=== PATIENT | female | born 1970 | race Caucasian/White ===

== ENCOUNTER → 2018-07-07 12:38 | Outpatient (CLI) | payer OTHER, SELFPAY ==
[2018-07-07 13:44] LABS: Cholesterol 209 mg/dL (140-199); Glucose 90 mg/dL (70-100); HDL Cholesterol 59 mg/dL (40-60); LDL Cholesterol Calculated 135 mg/dL (<100); Triglycerides 77 mg/dL (35-150)
== END ==
PROVIDERS: PCP Family Medicine; Visit Provider Family Medicine
DX: Z13.1 Encounter for screening for diabetes mellitus (principal); Z13.220 Encounter for screening for lipoid disorders
CPT/HCPCS: 36415; 80061; 82947

== ENCOUNTER → 2018-07-09 13:10 | Outpatient (CLI) | payer OTHER, SELFPAY ==
--- NOTE | 2018-07-09 | DI.MG.S_ITS ---
BILATERAL DIGITAL SCREENING MAMMOGRAM 3D/2D WITH CAD WITH AUGMENTATION: 07/09/2018 CLINICAL: Routine screening. Comparison is made to exams dated: 05/26/2016 mammogram and 08/20/2015 mammogram - [facility]. The tissue of both breasts is heterogeneously dense. This may lower the sensitivity of mammography. Current study was also evaluated with a Computer Aided Detection (CAD) system. There is an oval equal density asymmetry in the left breast posterior depth central to the nipple seen on the mediolateral oblique view only. No other significant masses, calcifications, or other findings are seen in either breast. IMPRESSION: INCOMPLETE: NEEDS ADDITIONAL IMAGING EVALUATION The oval equal density asymmetry in the left breast is indeterminate. Additional views with possible ultrasound are recommended. This exam was interpreted at Station ID: [id number]. NOTE: For mammograms, a report in lay terms will be sent to the patient. Approximately 15% of breast malignancies will not be visualized mammographically. In the management of a palpable breast mass, a negative mammogram must not discourage biopsy of a clinically suspicious lesion. Electronically Signed By: Berto Whitney M.D. at/:07/09/2018 17:55:18 letter sent: Additional Imaging Needed ACR BI-RADS Category 0: Incomplete 3340F
== END ==
PROVIDERS: PCP Family Medicine; Visit Provider Family Medicine
DX: Z12.31 Encounter for screening mammogram for malignant neoplasm of breast (principal)
CPT/HCPCS: 77063; 77067

== ENCOUNTER → 2018-07-18 13:17 | Outpatient (CLI) | payer OTHER, SELFPAY ==
--- NOTE | 2018-07-18 13:20 | DI.US.S_ITS ---
LIMITED ULTRASOUND OF LEFT BREAST: 07/18/2018 CLINICAL: 1. Left nipple discharge x 1 day. 2. Palpable lump 6:00 2cm fn. 3. Oval asymmetry on mammography. Comparison is made to exams dated: 07/18/2018 mammogram, 07/09/2018 mammogram, 05/26/2016 ultrasound, and 05/26/2016 mammogram - [facility]. Real-time and Doppler ultrasound of the left breast four quadrants and retroareolar regions were performed. Zarate scale images of the real-time examination were reviewed. No underlying breast mass or abnormality is identified. There is no ultrasound correlate for the previously noted oval equal density asymmetry in the left breast posterior depth central to the nipple seen on the mediolateral oblique view only on comparison screening mammograms. Targeted ultrasound of the left nipple and retroareolar region demonstrates no focal mass. There is no focal duct dilitation. There is mild diffuse retroareolar ductal ectasia. Targeted ultrasound was performed in the region of the patient's reported focal palpable abnormality in the left breast at 6 o'clock position 2 cm from the nipple. No underlying breast mass or abnormality is identified. IMPRESSION: PROBABLY BENIGN 1) No ultrasound correlate for the oval equal density asymmetry in the left breast posterior depth central to the nipple seen on the mediolateral oblique view only seen on screening and diagnostic mammography. A follow-up mammogram in 6 months is recommended to demonstrate stability. The patient is advised to monitor her breasts and to return sooner for re-evaluation should she feel anything grow or change. 2) Mild diffuse retroareolar ductal ectasia, but with no focal sonographic abnormality of the left nipple/retroareolar region to explain patient's reported nipple discharge. Recommend clinical follow-up with the patient's referring provider for further evaluation and management. A breast MRI can be considered if there is continued clinical concern. 3) No ultrasound findings to explain patient's reported focal palpable abnormality in the left breast at 6 o'clock position 2 cm from the nipple. Recommend clinical follow-up for further evaluation and management of the patient's reported symptoms. This exam was interpreted at Station ID: [id number]. Electronically Signed By: Juan Ramon Arshad M.D. ecl/:07/18/2018 17:56:51 letter sent: Followup Recommended Ultrasound BI-RADS: 3 Probably benign
--- NOTE | 2018-07-18 13:20 | DI.US.S_ITS ---
PROCEDURE: US ABDOMEN LIMITED INDICATIONS: BILATERAL GROIN LUMPS TECHNIQUE: Real-time focused scanning was performed of the inguinal region, with image documentation. COMPARISON: None. FINDINGS: Ultrasound examination of bilateral inguinal region shows multiple bilateral prominent inguinal lymph nodes and measures up to 4.2 x 0.4 x 0.8 cm in size in right inguinal region. No solid mass or fluid collection is seen. No evidence of inguinal hernia. IMPRESSION: Mildly prominent bilateral inguinal lymph nodes as described above. No evidence of inguinal hernia. No solid mass or fluid collection. Dictated by: Aldo Magana M.D. on 07/18/2018 at 15:47 Approved by: Aldo Magana M.D. on 07/18/2018 at 15:49
--- NOTE | 2018-07-18 13:20 | DI.MG.S_ITS ---
UNILATERAL LEFT DIGITAL DIAGNOSTIC MAMMOGRAM 3D/2D WITH ADDITIONAL VIEWS: 07/18/2018 CLINICAL: Additional evaluation requested from prior study. Patient also reports a palpable abnormality in her left breast as well as left nipple discharge. Comparison is made to exams dated: 07/09/2018 mammogram, 05/26/2016 mammogram, and 08/20/2015 mammogram - [facility]. The tissue of left breast is heterogeneously dense. This may lower the sensitivity of mammography. Previously identified oval equal density asymmetry in the left breast posterior depth central to the nipple seen on the mediolateral oblique view only on comparison screening mammograms persists with additional views. There is a triangular marker overlying the skin of the left breast at the site of the patient's reported palpable abnormality. There is no underlying mammographic abnormality. There is no retroareolar mass or abnormality. Imaged portions of the bilateral breast implants appear intact. IMPRESSION: INCOMPLETE: NEEDS ADDITIONAL IMAGING EVALUATION 1) Previously identified oval equal density asymmetry in the left breast posterior depth central to the nipple seen on the mediolateral oblique view only on comparison screening mammograms persists with additional views. A targeted ultrasound is recommended for further evaluation, and will be performed immediately following this exam. 2) No mammographic abnormality to correlate with the site of the patient's reported focal palpable abnormality in the left breast. Targeted diagnostic ultrasound recommended for further evaluation, which will be performed immediately following this exam. 3) No mammographic abnormality to correlate with patient's reported nipple discharge. Targeted diagnostic retroareolar ultrasound recommended for further evaluation, which will be performed immediately following this exam. This exam was interpreted at Station ID: [id number]. NOTE: For mammograms, a report in lay terms will be sent to the patient. Approximately 15% of breast malignancies will not be visualized mammographically. In the management of a palpable breast mass, a negative mammogram must not discourage biopsy of a clinically suspicious lesion. Electronically Signed By: Juan Ramon Arshad M.D. ecl/:07/18/2018 17:45:30 letter sent: Additional Imaging Needed ACR BI-RADS Category 0: Incomplete 3340F
== END ==
PROVIDERS: PCP Family Medicine; Visit Provider Family Medicine
DX: R92.8 Other abnormal and inconclusive findings on diagnostic imaging of breast (principal); R59.0 Localized enlarged lymph nodes; N63.20 Unspecified lump in the left breast, unspecified quadrant; N64.89 Other specified disorders of breast; N64.52 Nipple discharge; N60.42 Mammary duct ectasia of left breast
CPT/HCPCS: 76642; 76705; 77065; G0279

== ENCOUNTER → 2018-07-21 12:15 | Outpatient (CLI) | payer OTHER, SELFPAY ==
[2018-07-21 13:08] LABS: Add Manual Diff / Slide Review NO; Basophils Absolute Auto 100 /uL (0-100); Basophils Percent Auto 1.1 % (0-2); Eosinophils Absolute Auto 100 /uL (0-450); Eosinophils Percent Auto 1.5 % (2-4); Hematocrit 42.2 % (36-46); Hemoglobin 14.2 g/dL (12.0-16.0); Lymphocytes Absolute Auto 2200 /uL (1100-4500); Lymphocytes Percent Auto 31.2 % (25-40); Mean Corpuscular HGB Conc 33.5 % (30-36); Mean Corpuscular Hemoglobin 29.9 PG (26-34); Mean Corpuscular Volume 89.3 fL (80-100); Monocytes Absolute Auto 600 /uL (0-900); Monocytes Percent Auto 8.1 % (3-14); Neutrophils Absolute Auto 4000 /uL (1500-7000); Neutrophils Percent Auto 58.1 % (50-75); Platelet Count 308 X10^3/uL (150-400); Red Blood Cell Count 4.73 X10^6/uL (4.0-5.2); Red Cell Distribution Width 12.9 % (11.6-14.8); White Blood Cell Count 6.9 X10^3/uL (4.5-11.0)
[2018-07-21 13:35] LABS: Alanine Aminotransferase 37 IU/L (9-52); Albumin 4.3 g/dL (3.5-5.0); Albumin Globulin Ratio 1.5 (1.0-2.8); Alkaline Phosphatase 47 U/L (38-126); Aspartate Aminotransferase 23 IU/L (14-36); BUN Creatinine Ratio 23.3 (6-22); Bilirubin Total 0.4 mg/dL (0.2-1.3); Blood Urea Nitrogen 14 mg/dL (7-17); C-Reactive Protein Quant 0.7 mg/dL (<1.0); Calcium 9.4 mg/dL (8.4-10.2); Carbon Dioxide 26 mmol/L (22-32); Chloride 100 mmol/L (98-107); Erythrocyte Sedimentation Rate 9 MM/HR (0-20); Estimated Glomerular Filt Rate > 60.0 mL/min (>60); Globulin 2.9 g/dL (1.7-4.1); Glucose 87 mg/dL (70-100); HEMOLYSIS < 15 (0-50); Potassium 4.5 mmol/L (3.4-5.1); Sodium 137 mmol/L (137-145); Total Protein 7.2 g/dL (6.3-8.2)
== END ==
PROVIDERS: PCP Family Medicine; Visit Provider Family Medicine
DX: R59.9 Enlarged lymph nodes, unspecified (principal)
CPT/HCPCS: 36415; 80053; 85025; 85651; 86140

== ENCOUNTER → 2018-08-15 07:23 | Outpatient (CLI) | payer OTHER, SELFPAY ==
--- NOTE | 2018-08-15 07:23 | DI.US.S_ITS ---
PROCEDURE: US ABDOMEN LIMITED INDICATIONS: FOLLOW-UP ENLARGED BILATERAL INGUINAL LYMPH NODES TECHNIQUE: Real-time focused scanning was performed of the bilateral inguinal regions, with image documentation. COMPARISON: [facility], US, US ABDOMEN LIMITED, 07/18/2018, 14:21. FINDINGS: Left inguinal region: There is a 1.9 x 0.7 x 0.4 cm left inguinal lymph node with a mildly lobulated cortex. The lymph node demonstrates a preserved fatty hilum with cortical thickness of 3 mm, within normal limits. There is mild expected hilar vascularity on Doppler ultrasound. This was not identified on prior comparison exam. There is a 1.7 x 1.0 x 0.5 cm left inguinal lymph node which demonstrates a preserved fatty hilum with cortical thickness of 3 mm, within normal limits. There is mild expected hilar vascularity on Doppler ultrasound. This previously measured 1.8 x 0.6 x 0.4 cm on comparison exam of 07/18/18. Right inguinal region: There is a 3.8 x 0.8 x 0.7 cm right inguinal node which demonstrates a preserved fatty hilum with cortical thickness of 3 mm, within normal limits. There is mild expected hilar vascularity on Doppler ultrasound. This previously measured 4.2 x 0.8 x 0.4 cm on 07/18/18. There is a 0.9 x 0.8 x 0.5 cm right inguinal lymph node which demonstrates a preserved fatty hilum with cortical thickness of 2 mm, within normal limits. There is mild expected hilar vascularity on Doppler ultrasound. This previously measured 0.9 x 0.6 x 0.6 cm on comparison exam of 07/18/18. 0.7 x 0.5 x 0.3 cm right inguinal lymph node which demonstrates a preserved fatty hilum with cortical thickness of 3 mm, within normal limits. There is mild expected hilar vascularity on Doppler ultrasound. No clear convincing correlate is identified on comparison exam. IMPRESSION: Bilateral inguinal lymph nodes as described above. No clear convincing abnormal lymph node warranting biopsy by imaging criteria is identified at this time. Recommend clinical followup for further evaluation and management. Consider followup ultrasound in 6 months to demonstrate stability if there is continued clinical concern. Dictated by: Juan Ramon Arshad M.D. on 08/15/2018 at 8:51 Approved by: Juan Ramon Arshad M.D. on 08/15/2018 at 9:13
== END ==
PROVIDERS: PCP Family Medicine; Visit Provider Family Medicine
DX: R59.0 Localized enlarged lymph nodes (principal)
CPT/HCPCS: 76705

== ENCOUNTER → 2018-08-30 13:26 | Outpatient (CLI) | payer OTHER, SELFPAY ==
--- NOTE | 2018-08-30 13:28 | DI.CT.S_ITS ---
PROCEDURE: CT ABDOMEN PELVIS W CON INDICATIONS: enlarged inguinal lymph nodes TECHNIQUE: After the administration of oral and intravenous contrast, 5 mm thick sections acquired from the diaphragms to the symphysis. 5 mm thick coronal and sagittal reformats were performed. For radiation dose reduction, the following was used: automated exposure control, adjustment of mA and/or kV according to patient size. COMPARISON: [facility], US, US ABDOMEN LIMITED, 07/18/2018, 14:21. [facility], US, US ABDOMEN LIMITED, 08/15/2018, 7:30. [facility], CT, ABDOMEN/PELVIS WITH CONTRAST, 07/06/2017, 10:03. FINDINGS: Image quality: Excellent. ABDOMEN: Lung bases: Lung bases are clear. Heart size is normal. Partially imaged breast implants are intact. The small hiatal hernia, chronic. Interval resolution of bilateral pleural effusions. Solid organs: Liver is normal in size and enhancement. Gallbladder is surgically absent. Interval resolution of perihepatic fluid. Biliary system is non-dilated. Pancreas enhances normally. Spleen is normal in size and enhancement. No adrenal nodules. Kidneys are normal in size and enhancement, without hydronephrosis. Peritoneum and bowel: Stomach, small bowel, and colon loops are normal in caliber and wall thickness. Mild diverticulosis of the sigmoid colon. Normal quantity of stool throughout the rest of the colon. Normal appendix. No free fluid or air. Interval resolution of prior pelvic fluid. Nodes and vessels: No retroperitoneal or mesenteric adenopathy. Aorta and inferior vena cava are normal in caliber. Miscellaneous: No ventral hernias. PELVIS: Genitourinary: Thickening of the anterior urinary bladder wall, similar compared to the prior study, potentially physiologic. Miscellaneous: No suspicious intrapelvic adenopathy. Bilateral fat containing femoral hernia sac present. A mildly prominent lymph node is present at the orifice of the right femoral hernia, unchanged in size compared to the prior study. A fatty hilum is visible. Bones: No suspicious bony lesions. No vertebral body compression fractures. IMPRESSION: 1. No pathologic adenopathy. 2. Bilateral, fat containing femoral hernias. 3. Benign appearing lymph node immediately adjacent to the right femoral hernia. 4. Interval resolution of prior postcholecystectomy sequela. 5. Mild sigmoid diverticulosis without acute diverticulitis. Dictated by: Sunni Mckoy M.D. on 08/30/2018 at 16:46 Approved by: Sunni Mckoy M.D. on 08/30/2018 at 16:55
== END ==
PROVIDERS: PCP Family Medicine; Visit Provider Family Medicine
DX: R59.0 Localized enlarged lymph nodes (principal); K41.20 Bilateral femoral hernia, without obstruction or gangrene, not specified as recurrent; K57.30 Diverticulosis of large intestine without perforation or abscess without bleeding; K44.9 Diaphragmatic hernia without obstruction or gangrene; Z90.49 Acquired absence of other specified parts of digestive tract
CPT/HCPCS: 74177; Q9967

== ENCOUNTER 2018-09-27 14:24 | Day surgery (SDC) | payer OTHER, SELFPAY ==
[2018-09-21 12:23] VITALS: BMI 31.7
[2018-09-27] VITALS (13 sets, daily range): BP systolic 91–127; BP diastolic 58–88; PULSE 71–100; RESP 10–18; TEMP 36.3–36.9; O2SAT 93–98; BMI 30.5
[2018-09-27] MEDS: LACTATED RINGERS 1,000 ML 100 ML IV ×2 (16:05→18:19)
--- NOTE | 2018-09-27 18:12 | PM.PREOP ---
Pre-operative Note Interval Note History & Physical reviewed/Exam performed by Physician: Yes Changes to H&P: No
[2018-09-27] MEDS: CEFAZOLIN 2 GM/100 ML FROZ.PIGGY IV (18:20)
--- NOTE | 2018-09-27 18:48 | SUR.OPER ---
Supine on padded OR bed, head on pillow, arms secured on padded arm boards at <90 degrees abduction, legs uncrossed,pillow x1 under knees per patient request, safety belt at thigh.
[2018-09-27] MEDS: BUPIVACAINE 0.5% (PF) VIAL 30 ML INJ (18:57)
--- NOTE | 2018-09-27 20:48 | PM.OP.1 ---
Operative Date/Time/Diagnoses Date of procedure: 09/27/18 Time of procedure: 20:49 Pre-op diagnosis: Bilateral femoral hernias based on CT scanning Post-op diagnosis: same (Left side contained a large amount of fat. Right-side principally lymph nodes which were not removed.) Procedure & Clinicians Procedure: Bilateral Serg repair of femoral hernias Same procedure as scheduled: Yes Indications: Symptomatic femoral hernias Surgeon: Stephon Oliveira Biomedical Equipment Technician: Marcy Molina Anesthesia Type: General Operative Notes Findings: See postop Closure Type: primary Specimen(s): none sent Prosthetic devices, grafts, tissues, transplants, or devices: None Estimated Blood Loss (mL): 15 Procedure in detail: Patient is placed supine on the operating room table and underwent general LMA anesthesia. She was prepped and draped in the usual fashion. Local anesthetic was infiltrated and a curvilinear incision made over the internal ring on the right side. It was carried down the level the external oblique. The external oblique was opened parallel to its fibers through the external ring which was quite small. Ileal inguinal nerve was not encountered on the right side. Blunt dissection was used to lift the external oblique medially and laterally to expose the ilioinguinal ligament and the posterior lamella of the rectus. The floor and had a small bulge within it and contained preperitoneal fat I opened this area and removed a well-defined piece of preperitoneal fat. The preperitoneal fat at the level of Tj's ligament was dissected proximally with blunt dissection and expose the femoral canal. In so doing I would have reduced any fat contained in the hernia. There were lymph nodes adjacent to the femoral vein and I suspect these may well have been what was seen at least in part on CT. Sutures were placed between the transversalis arch and the Tj's ligament using interrupted 0 Ethibond sutures. These were placed until a reach the femoral canal where a transition stitch was made and then sutures were placed between the transversalis arch in the ileopubic tract and edge of inguinal ligament. The internal ring was completely closed with this maneuver. A relaxing incision was made in the posterior lamella the anterior rectus sheath. Sutures were then tied down. The repair appeared to be intact. The external oblique was closed with a running 3 0 Vicryl. The subcu was closed with interrupted 3 0 Vicryl and skin was closed running 4 0 Vicryl subcuticular stitch and Steri-Strips. Attention was turned to the left side. A mirror incision was made after infiltrating local anesthetic. An identical operation was performed with the following exception. There were no lymph nodes seen on the left side but there was a large piece of fat in a femoral hernia. This fat was reduced and a portion of this was removed in order to reduce it. The ilioinguinal nerve was seen on the left side and carefully preserved. The deep epigastric vessels were also encountered and carefully preserved. Otherwise an identical operation was performed. Closure was in an identical fashion as well. The wounds were cleaned masses on Steri-Strips were applied and a dressing applied. Patient was awakened extubated and taken to recovery area in good condition. There were no apparent complications. Local anesthetic was infiltrated in both sides after closure of the left side. Complications: none Condition: stable Disposition: PACU Plan for aftercare: Due to the late hour and her prior problems with anesthesia she will be kept overnight in an out patient with bed status.
[2018-09-27] MEDS: MORPHINE 10 MG/ML INJ 2 MG IV ×2 (20:50→21:10)
[2018-09-27] MEDS: fentaNYL 100 MCG/2 ML INJ 50 MCG IV (20:55)
[2018-09-27] MEDS: KETOROLAC 30 MG/ML VIAL IV (22:46)
[2018-09-27] MEDS: GABAPENTIN 300 MG CAPSULE PO (22:47)
--- NOTE | 2018-09-27 23:35 | PC.NURSE ---
admit note: pt A&OX3. 96% 1L. no n/v. pain 10/22, administered toradol and gabapentin. 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 lap sites CDI. no shadow drainage. call light in reach. bed alarm active.
[2018-09-27] MEDS: DOCUSATE 100 MG CAPSULE PO (23:59)
[2018-09-28] MEDS: MORPHINE 2 MG/ML INJ IV ×2 (00:06→04:18)
[2018-09-28 04:00] VITALS: BP 99/76; PULSE 77; RESP 18; TEMP 36.6; O2SAT 95
[2018-09-28 07:52] VITALS: BP 104/64; PULSE 67; RESP 18; TEMP 36.3; O2SAT 97
[2018-09-28] MEDS: GABAPENTIN 300 MG CAPSULE PO (08:21)
--- NOTE | 2018-09-28 09:31 | PC.NURSE ---
Pt is A&ox3, she states that she is comfortable at this time. Dressings to lower groin/femoral area cdi. dr. pope here and has discharged patient.
--- NOTE | 2018-09-28 09:42 | PM.DS.1 ---
History of Present Illness Date Patient Seen: 09/28/18 Time Patient Seen: 09:43 Chief complaint: [id number] Narrative: Patient is a woman brought in For repair bilateral femoral hernias Discharge Providers Discharge Date: 09/28/18 Primary care physician: Luh Leigh MD Consults: 09/27/18 21:40 Consult to Discharge Planning Routine Comment: Discharge provider: Stephon Oliveira MD Summary Discharge Diagnosis: Bilateral femoral hernias Hospital Course: The patient underwent operation. Because of the late hour she was brought in and is an outpatient with bed status. She was seen prior to discharge. She has tolerated diet. Her pain is well controlled. She has numbness at the incisions. She is quite comfortable. Her dressings are dry and intact. Status at Discharge Cognitive/behavioral status at discharge: oriented Functional status at discharge: independent ambulation Overall status at discharge: patient is not back to baseline (Has pain when up and walking) Exam Vital Signs (past 8 hours): - 09/28/18 04:00 09/28/18 07:52 Temperature 97.9 F 97.3 F L Pulse Rate 77 67 Respiratory Rate 18 18 Blood Pressure 99/76 104/64 Pulse Oximetry 95 97 Oxygen Delivery Method Room Air Oxygen Flow Rate 2 Discharge Plan Discharge Med Rec/Prescriptions Prescriptions: No Action valacyclovir 500 mg tablet 500 mg PO PRN PRN (Reason: Cold Sores) RF: 0 Visit Report/Discharge Packet Instructions: DI for Hernia Repair, [facility]: Wound Care Discharge Data Primary Care Provider: Luh Leigh Attending Provider: Stephon Oliveira Quality VTE Deep Vein Thrombosis/Pulmonary Embolism Present on Admission: No
--- NOTE | 2018-09-28 12:01 | CM.DANOTE ---
Discharge Planning/Care Management DCP: assessment: case received and discussed in Team Rounds 0930 to 1015. Documentation reveals that pt is a 47 year old female who admitted yesterday for a scheduled repair of bilateral femoral hernias. Payer: [facility]. Dr. Oliveira did see pt early this morning and ok'd her for d/c. She left at about 0945. No concerns re the dc plan were identified by the care team members. CM Discharge Assessment Start: 09/28/18 12:00 Freq: Status: Active Protocol: Document 09/28/18 12:00 ITV (Rec: 09/28/18 12:01 ITV [id number]) Discharge Planning Assessment Advance Directives? 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 No Does patient have DE PAZ/SOB No Hx Sleep Apnea No Currently Taking a Beta Coreen No Hx Chest Pain Yes: Atypical 12/2016 Hx SOB No Hx Syncope or Dizziness No Anti-Coagulant Therapy No Has a Correctional Facility Psychiatrist No Cardiac Testing No Hx Pacemaker/ICD No Pacemaker Rep Required? No Cardiac Clearance Received Not Applicable dysphagia No Urinary Catheter Present No Hx Urinary Self Catheterization No Diabetes No Patient No Lactating No Comment LMP 08/26/18 Marital Status Lives With spouse family Patient Discharge Plan Description Return Home
== END 2018-09-28 11:15 | disposition home or self-care (01) ==
LOC: OR 14:25 → AC 21:31
PROVIDERS: PCP Hospitalist; Visit Provider Specialist
PROC: (CPT 49550; principal; 2018-09-27 15:15)
DX: K41.20 Bilateral femoral hernia, without obstruction or gangrene, not specified as recurrent (principal); F17.210 Nicotine dependence, cigarettes, uncomplicated
CPT/HCPCS: 49550; J0690; J1100; J1885; J2250; J2270; J2405; J2704; J3010

== ENCOUNTER 2019-01-31 01:35 | Emergency (ER) | payer OTHER, SELFPAY ==
[2018-09-27 21:57] VITALS: BMI 30.5
[2019-01-31 01:44] VITALS: BP 117/73; PULSE 80; RESP 18; TEMP 36.2; O2SAT 98; BMI 31.7
--- NOTE | 2019-01-31 01:58 | ED.ABDPAIN ---
HPI - Abdominal Pain General Chief Complaint: Abdominal Pain Stated Complaint: abdominal pain Time Seen by Provider: 01/31/19 01:46 Source: patient Mode of arrival: ambulatory Limitations: no limitations History of Present Illness HPI narrative: Patient is a 48-year-old female who presents with right upper quadrant pain and near-syncope. She says she woke suddenly with some right upper quadrant pain she stood up she felt like she might pass out she got extremely diaphoretic she was able to lower herself to the ground and crawled to her son's room at which 0.9 normal was called. The EMS arrived checked her out she was doing better but sent her to the ER POV for further evaluation. She no longer has right upper quadrant pain and back she has had a cholecystectomy. She no longer feels like she is going to pass out she denies any chest pain heart palpitations shortness of breath nausea or vomiting. MD complaint: abdominal pain Onset (ago): minute(s) Pain Consistency: now resolved Location: RUQ Quality: stabbing Radiation: none Related Data Home Medications Medication Instructions Recorded Confirmed valacyclovir 500 mg PO PRN PRN 09/27/18 01/25/19 Previous Rx's Medication Instructions Recorded ibuprofen 600 mg PO TID PRN #20 tab 09/28/18 morphine 10 mg PO Q4-6H PRN #200 ml 09/28/18 gabapentin 300 mg capsule 300 mg PO BID #60 cap 11/22/18 gentamicin 0.3 % eye drops 2 drop EAR-RIGHT Q8H #5 ml 01/25/19 Allergies Allergy/AdvReac Type Severity Reaction Status Date / Time No Known Drug Allergies Allergy Verified 01/25/19 16:15 Review of Systems Review of Systems ROS Unobtainable: All systems reviewed & are unremarkable except as noted in HPI and below Constitutional Constitutional: Denies chills, Denies fever(s), Denies lethargy and Denies weakness Eyes Eyes: Denies change in vision, Denies eye discharge, Denies irritation and Denies loss of vision ENT Ears, Nose, Mouth, and Throat: Denies change in voice, Denies neck pain and Denies sore throat Cardiovascular Cardiovascular: Denies chest pain, Reports diaphoresis, Denies rapid heart rate, Denies pedal edema, Reports lightheadedness, Denies dyspnea and Denies dyspnea on exertion Respiratory Respiratory: Denies cough, Denies dyspnea, Denies dyspnea on exertion and Denies wheezing Gastrointestinal Gastrointestinal: Reports as per HPI Genitourinary Genitourinary: Denies hematuria, Denies flank pain, Denies urinary incontinence and Denies urinary urgency Musculoskeletal Musculoskeletal: Denies neck pain Integumentary/Breasts Skin/Breast: Denies pruritus, Denies erythema, Denies rash and Denies wounds Neurologic Neurologic: Denies loss of vision and Denies weakness Allergic/Immunologic Allergic/Immunologic: Denies wheezing [facility] Medical History Atypical chest pain (Acute ~12/2016) Depression (Acute) Diverticula of intestine (Acute) Elevated liver enzymes (Acute) Herpes (Chronic) Hypercholesterolemia (Acute) Murmur (Acute) Surgical History History of cholecystectomy (Resolved 07/04/17) History of third molar tooth extraction Status post endoscopy Social History marital status: household members: spouse and family occupational status: employed Smoking Status: Current some day smoker alcohol intake: current substance use type: does not use Social History marital status: household members: spouse and family occupational status: employed Smoking Status: Current some day smoker alcohol intake: current substance use type: does not use Exam Initial Vital Signs Initial Vital Signs: Vital Signs Temperature 97.2 F L 01/31/19 01:44 Pulse Rate 80 01/31/19 01:44 Respiratory Rate 18 01/31/19 01:44 Blood Pressure 117/73 01/31/19 01:44 Pulse Oximetry 98 01/31/19 01:44 GENERAL: Well-appearing, well-nourished and in no acute distress. HEENT: Head atraumatic,EOMI, pupils reactive, face symmetric CARDIOVASCULAR: Regular rate and rhythm without murmurs, rubs or gallops. RESPIRATORY: Breath sounds equal bilaterally, no wheezes rales or rhonchi. ABDOMEN: Soft, nontender. Normoactive bowel sounds all 4 quadrants. No guarding or rebound. No right upper quadrant pain negative Lane sign EXTREMITIES: Normal range of motion, no clubbing or edema. Neurovascularly intact NEUROLOGICAL: Alert and oriented x4.Normal gait and speech. Cranial nerves II through XII grossly intact. SKIN: Warm, dry, no laceration, no petechiae, no rashes or lesions. Course Orders Ordered: ED Orders 01/31/19 01:40 Complete Blood Count AUTO DIFF Stat Comprehensive Metabolic Panel Stat Lipase Stat 01/31/19 01:57 EKG-12 Lead Stat Discontinued Medications Sodium Chloride (Normal Saline 0.9%) 1,000 mls @ 1,000 mls/hr IV CONT CHRISTO Vital Signs Vital signs: Vital Signs - 8 hr 01/31/19 01:44 Temperature 97.2 F L Pulse Rate 80 Respiratory Rate 18 Blood Pressure 117/73 Pulse Oximetry 98 MDM - Abdominal Pain Lab Data Attestation: I reviewed the patient's lab results. Result diagrams: 01/31/19 01:40 01/31/19 01:40 Labs: Lab Results 01/31/19 01/31/19 Range/Units 01:40 01:40 WBC 10.1 (4.5-11.0) X10^3/uL RBC 4.82 (4.0-5.2) X10^6/uL Hgb 14.5 (12.0-16.0) g/dL Hct 41.9 (36-46) % MCV 87.0 (80-100) fL MCH 30.0 (26-34) PG MCHC 34.5 (30-36) % RDW 13.0 (11.6-14.8) % Plt Count 329 (150-400) X10^3/uL Neut % (Auto) 57.1 (50-75) % Lymph % (Auto) 34.7 (25-40) % Dickson % (Auto) 6.3 (3-14) % Eos % (Auto) 1.4 L (2-4) % Baso % (Auto) 0.5 (0-2) % Neut # (Auto) 5800 (7022-3787) /uL Lymph # (Auto) 3500 (2452-7879) /uL Dickson # (Auto) 600 (0-900) /uL Eos # (Auto) 100 (0-450) /uL Baso # (Auto) 100 (0-100) /uL Sodium 138 (137-145) mmol/L Potassium 3.7 (3.4-5.1) mmol/L Chloride 103 (98-107) mmol/L Carbon Dioxide 26 (22-32) mmol/L BUN 17 (7-17) mg/dL Creatinine 0.60 (0.52-1.04) mg/dL Estimated GFR > 60.0 (>60) mL/min BUN/Creatinine Ratio 28.3 H (6-22) Glucose 111 H (70-100) mg/dL Calcium 9.4 (8.4-10.2) mg/dL Total Bilirubin 0.2 (0.2-1.3) mg/dL AST 32 (14-36) IU/L ALT 21 (9-52) IU/L Alkaline Phosphatase 54 (38-126) U/L Total Protein 7.5 (6.3-8.2) g/dL Albumin 4.2 (3.5-5.0) g/dL Globulin 3.3 (1.7-4.1) g/dL Albumin/Globulin Ratio 1.3 (1.0-2.8) Lipase 51 (23-300) U/L ECG Data Attestation: I personally reviewed and interpreted this ECG as follows: Prior ECG tracings: not available for review Interpretation: Normal sinus rhythm rate 67 p.r. interval 171 QRS [address] changes T-wave no priors to MDM Narrative Medical decision making narrative: Patient actually has no right upper quadrant pain. Blood work overall reassuring no elevated bilirubin or liver enzymes. She has very little pain in the right upper quadrant at this time I do not think imaging is indicated. She likely had a vasovagal reaction and felt like she might pass out. She was ambulatory in the ED without any difficulty. Discharge Plan Departure Patient Disposition: Home Clinical Impression: Vasovagal episode, Right upper quadrant abdominal pain Discharge Date/Time: 01/31/19 03:25 Instructions: DI for Syncope in Adults (Fainting) Activity Restrictions/Additional Instructions: *You have been diagnosed with vasovagal reaction in right upper quadrant pain *What to do: Blood work this evening is overall reassuring. Her liver enzymes are not elevated. Her EKG is within normal limits. You may require further evaluation of year right upper quadrant discomfort with her PCP however not indicated at this time *Continue to take medications as directed *Follow up with your primary care provider in 2-3 days *Return to ER if you should have passing out, increased pain, persistent vomiting or any new, worsening or concerning symptoms Prescriptions: No Action gabapentin 300 mg capsule 300 mg PO BID Qty: 60 RF: 1 gentamicin 0.3 % drops 2 drop EAR-RIGHT Q8H Qty: 5 RF: 0 valacyclovir 500 mg tablet 500 mg PO PRN PRN (Reason: Cold Sores) RF: 0 morphine 10 mg/5 mL solution 10 mg PO Q4-6H PRN (Reason: painful procedure) Qty: 200 RF: 0 ibuprofen 600 mg tablet 600 mg PO TID PRN (Reason: painful procedure) Qty: 20 RF: 0 Referrals: Luh Leigh MD [Primary Care Provider] -
[2019-01-31 02:07] LABS: Add Manual Diff / Slide Review NO; Basophils Absolute Auto 100 /uL (0-100); Basophils Percent Auto 0.5 % (0-2); Eosinophils Absolute Auto 100 /uL (0-450); Eosinophils Percent Auto 1.4 % (2-4); Hematocrit 41.9 % (36-46); Hemoglobin 14.5 g/dL (12.0-16.0); Lymphocytes Absolute Auto 3500 /uL (1100-4500); Lymphocytes Percent Auto 34.7 % (25-40); Mean Corpuscular HGB Conc 34.5 % (30-36); Monocytes Absolute Auto 600 /uL (0-900); Monocytes Percent Auto 6.3 % (3-14); Neutrophils Absolute Auto 5800 /uL (1500-7000); Neutrophils Percent Auto 57.1 % (50-75); Platelet Count 329 X10^3/uL (150-400); Red Blood Cell Count 4.82 X10^6/uL (4.0-5.2); White Blood Cell Count 10.1 X10^3/uL (4.5-11.0)
[2019-01-31 02:10] LABS: Alanine Aminotransferase 21 IU/L (9-52); Albumin 4.2 g/dL (3.5-5.0); Albumin Globulin Ratio 1.3 (1.0-2.8); Alkaline Phosphatase 54 U/L (38-126); Aspartate Aminotransferase 32 IU/L (14-36); BUN Creatinine Ratio 28.3 (6-22); Bilirubin Total 0.2 mg/dL (0.2-1.3); Blood Urea Nitrogen 17 mg/dL (7-17); Calcium 9.4 mg/dL (8.4-10.2); Carbon Dioxide 26 mmol/L (22-32); Chloride 103 mmol/L (98-107); Estimated Glomerular Filt Rate > 60.0 mL/min (>60); Globulin 3.3 g/dL (1.7-4.1); Glucose 111 mg/dL (70-100); HEMOLYSIS < 15 (0-50); Lipase 51 U/L (23-300); Potassium 3.7 mmol/L (3.4-5.1); Sodium 138 mmol/L (137-145); Total Protein 7.5 g/dL (6.3-8.2)
== END 2019-01-31 03:25 | disposition home or self-care (01) ==
PROVIDERS: Emergency Provider Emergency Medicine; PCP Hospitalist
DX: R55 Syncope and collapse (principal); R10.11 Right upper quadrant pain
CPT/HCPCS: 80053; 83690; 85025; 93005; 99282; 99284

== ENCOUNTER → 2019-02-15 08:51 | Outpatient (CLI) | payer OTHER, SELFPAY ==
[2018-09-27 21:57] VITALS: BMI 30.5
--- NOTE | 2019-02-15 08:52 | DI.MG.S_ITS ---
UNILATERAL LEFT DIGITAL DIAGNOSTIC MAMMOGRAM 3D/2D WITH AUGMENTATION: 02/15/2019 CLINICAL: Patient returns for a 6 month follow up of the left breast. Comparison is made to exams dated: 07/18/2018 mammogram, 07/09/2018 mammogram, 05/26/2016 mammogram, 07/18/2018 ultrasound, and 05/26/2016 ultrasound - [facility]. The tissue of left breast is heterogeneously dense. This may lower the sensitivity of mammography. Stable oval equal density asymmetry in the left breast posterior depth central to the nipple seen on the mediolateral oblique view only. No significant masses, calcifications, or other findings are seen in the breast. There is no retroareolar mass. Patient denies nipple discharge. Left breast implant is intact and unchanged. IMPRESSION: PROBABLY BENIGN Stable asymmetry in the left breast posterior depth central to the nipple seen on the mediolateral oblique view only. A follow-up mammogram and possible ultrasound in 6 months is recommended to demonstrate stability. This exam was interpreted at Station ID: [id number]. NOTE: For mammograms, a report in lay terms will be sent to the patient. Approximately 15% of breast malignancies will not be visualized mammographically. In the management of a palpable breast mass, a negative mammogram must not discourage biopsy of a clinically suspicious lesion. Electronically Signed By: Jordon Easton M.D. [facility] [place]/:02/15/2019 09:42:12 letter sent: Followup Recommended ACR BI-RADS Category 3: Probably benign [id number]
== END ==
PROVIDERS: PCP Hospitalist; Visit Provider Hospitalist
DX: R92.8 Other abnormal and inconclusive findings on diagnostic imaging of breast (principal); N64.89 Other specified disorders of breast
CPT/HCPCS: 77065; G0279

== ENCOUNTER → 2019-02-28 09:49 | Outpatient (CLI) | payer OTHER, SELFPAY ==
[2019-02-27 15:01] VITALS: BMI 30.5
[2019-02-28 11:35] LABS: Thyroid Stimulating Hormone 1.29 uIU/mL (0.47-4.68)
[2019-02-28 16:05] LABS: Free T4, Direct Thyroxine 1.31 ng/dL (0.78-2.19)
== END ==
PROVIDERS: Visit Provider Nurse Practitioner
DX: F41.9 Anxiety disorder, unspecified (principal); R63.5 Abnormal weight gain; R68.89 Other general symptoms and signs
CPT/HCPCS: 36415; 84439; 84443; 84481

== ENCOUNTER → 2019-07-03 09:24 | Outpatient (CLI) | payer OTHER, SELFPAY ==
[2019-06-24 10:14] VITALS: BMI 30.5
--- NOTE | 2019-07-03 10:20 | DI.CT.S_ITS ---
PROCEDURE: CT PEL WO CON INDICATIONS: groin pain post repair femoral hernias r/o recurrence TECHNIQUE: After the administration of oral contrast, 5 mm thick sections acquired from the iliac crests to the symphysis. 5 mm coronal and sagittal reformats were then performed. For radiation dose reduction, the following was used: automated exposure control, adjustment of mA and/or kV according to patient size. COMPARISON: None. FINDINGS: Image quality: Excellent. Peritoneum and bowel: Bowel loops demonstrate normal wall thickness and caliber. No free fluid or air. Genitourinary: Bladder wall thickness is normal. Nodes and vessels: No iliac, pelvic, or inguinal adenopathy by size criteria. Iliac vessels demonstrate normal size. Bones: No suspicious bony lesions. Pelvic ring and hip joints appear intact. Miscellaneous: No inguinal hernias. IMPRESSION: Reportedly bilateral femoral hernia repair has been performed approximately 9 months ago. No operative complication or associated inflammation seen. Source of groin pain is not identified. No recurrent hernia is found. Dictated by: Martin Barreto M.D. on 07/03/2019 at 13:56 Approved by: Martin Barreto M.D. on 07/03/2019 at 13:57
== END ==
PROVIDERS: Referring Provider Specialist; Visit Provider Specialist
DX: R10.30 Lower abdominal pain, unspecified (principal); G89.29 Other chronic pain
CPT/HCPCS: 72192

== ENCOUNTER → 2019-10-23 12:48 | Outpatient (CLI) | payer OTHER, SELFPAY ==
[2019-06-24 10:14] VITALS: BMI 30.5
--- NOTE | 2019-10-23 12:50 | DI.US.S_ITS ---
ULTRASOUND OF RIGHT BREAST: 10/23/2019 CLINICAL: Palpable right breast lump. Comparison is made to exams dated: 02/15/2019 mammogram, 07/18/2018 ultrasound, 07/18/2018 mammogram, 07/09/2018 mammogram, 05/26/2016 ultrasound, and 05/26/2016 ultrasound - [facility]. Color flow ultrasound of the right breast was performed on the areas of interest. Zarate scale images of the real-time examination were reviewed. There is a benign oval cyst in the right breast at 10 o'clock in the retroareolar region. This oval cyst is anechoic. This may correlate as palpated but was not seen on the prior mammogram. IMPRESSION: BENIGN There is no sonographic evidence of malignancy. The oval cyst in the right breast is benign. Clinical follow up for the patients breast discomfort is recommended. A 1 year screening right mammogram is recommended. A six month left mammogram and possible ultrasound is recommended to follow up the left focal asymmetry seen only on non-displaced MLO view. This exam was interpreted at Station ID: [id number]. Electronically Signed By: Lexus herrera/:10/25/2019 15:01:56 letter sent: Clinical Evaluation Ultrasound BI-RADS: 2 Benign
--- NOTE | 2019-10-23 12:50 | DI.MG.S_ITS ---
BILATERAL DIGITAL DIAGNOSTIC MAMMOGRAM 3D/2D WITH AUGMENTATION: 10/23/2019 CLINICAL: Short follow up. Comparison is made to exams dated: 02/15/2019 mammogram, 07/18/2018 mammogram, 07/09/2018 mammogram, and 05/26/2016 mammogram - [facility]. The tissue of both breasts is heterogeneously dense. This may lower the sensitivity of mammography. No significant masses, calcifications, or other findings are seen in either breast. The implants are intact. IMPRESSION: INCOMPLETE: NEEDS ADDITIONAL IMAGING EVALUATION The stable oval asymmetry in the left breast is probably benign. Six month follow up mammogram and possible ultrasound recommended for follow up. There is no mammographic abnormality seen in the right breast to correspond with the palpable abnormality and pain, however, targeted ultrasound of the right breast is recommended and will be performed immediately following this exam. This exam was interpreted at Station ID: [id number]. NOTE: For mammograms, a report in lay terms will be sent to the patient. Approximately 15% of breast malignancies will not be visualized mammographically. In the management of a palpable breast mass, a negative mammogram must not discourage biopsy of a clinically suspicious lesion. Electronically Signed By: Lexus herrera/:10/25/2019 15:02:40 ACR BI-RADS Category 0: Incomplete [id number]
== END ==
PROVIDERS: Referring Provider Family Medicine; Visit Provider Family Medicine
DX: R92.8 Other abnormal and inconclusive findings on diagnostic imaging of breast (principal); N64.4 Mastodynia; N60.01 Solitary cyst of right breast; N64.89 Other specified disorders of breast; Z98.82 Breast implant status
CPT/HCPCS: 76642; 77066; G0279

== ENCOUNTER → 2021-01-05 10:48 | Outpatient (CLI) | payer OTHER, SELFPAY ==
[2020-11-18 14:16] VITALS: BMI 30.5
== END ==
PROVIDERS: PCP Nurse Practitioner; Referring Provider Nurse Practitioner; Visit Provider Nurse Practitioner
DX: Z20.822 Contact with and (suspected) exposure to COVID-19 (principal)

== ENCOUNTER 2021-01-05 10:55 | Emergency (ER) | payer OTHER, SELFPAY ==
[2020-11-18 14:16] VITALS: BMI 30.5
[2021-01-05 11:00] VITALS: BP 112/69; PULSE 79; RESP 16; TEMP 36.9; O2SAT 97; BMI 31.2
--- NOTE | 2021-01-05 11:08 | DI.RAD.S_ITS ---
PROCEDURE: XR CHEST 2V INDICATIONS: covid TECHNIQUE: 2 views of the chest were acquired. COMPARISON: None. FINDINGS: Surgical changes and devices: Cholecystectomy clips are seen. Lungs and pleura: No significant infiltrates are seen. No pleural effusions or pneumothorax. Mediastinum: Mediastinal contours are normal. Heart size is normal. Bones and chest wall: No suspicious bony abnormalities. Soft tissues appear unremarkable. IMPRESSION: No significant infiltrates are seen. If there is clinical concern for a developing pulmonary process, a short-term followup chest series (with PA and lateral views, performed in deep inspiration) is suggested for further evaluation. Dictated by: Heladio Carlson M.D. on 01/05/2021 at 10:36 Approved by: Heladio Carlson M.D. on 01/05/2021 at 10:37
--- NOTE | 2021-01-05 11:55 | ED.GENADULT ---
HPI - General Adult General Chief complaint: Upper Respiratory Symptoms Stated complaint: Covid+/Needs CXR/Sent by Susan Gonzalez Time Seen by Provider: 01/05/21 11:10 Source: patient Mode of arrival: Ambulatory Limitations: no limitations History of Present Illness HPI narrative: Patient is a 50-year-old female. On vaccinated against COVID-19. Is known positive for COVID-19. Is on day 8 of symptoms. Was talking with her primary doctor today about another issue brought up that she was very winded. No fevers. Somewhat of a cough. Very fatigued. She was told by her primary provider to come to the emergency department for chest x-ray. Related Data Previous Rx's Medication Instructions Recorded hydroxyzine HCl 25 mg tablet 25 mg PO QID PRN #30 tab 02/28/19 propylene glycol 0.6 % eye drops 1 drp OPHTHALMIC (EYE) BID PRN #10 12/11/20 (Systane Balance) ml valacyclovir 500 mg tablet 500 mg PO BID PRN #90 tab 12/11/20 white petrolatum-mineral oil 94 1 applic OPHTHALMIC (EYE) BEDTIME 12/11/20 %-3 % eye ointment (Systane #3.5 g Nighttime) efinaconazole 10 % topical 1 applic TOPICAL BEDTIME #8 ml 01/04/21 solution with applicator Allergies Allergy/AdvReac Type Severity Reaction Status Date / Time No Known Drug Allergies Allergy Verified 11/21/19 09:02 Review of Systems Constitutional Constitutional: Reports fatigue Cardiovascular Cardiovascular: Reports system reviewed and no additional complaints, except as documented Respiratory Respiratory: Reports system reviewed and no additional complaints, except as documented Gastrointestinal Gastrointestinal: Reports system reviewed and no additional complaints, except as documented Musculoskeletal Musculoskeletal: Reports system reviewed and no additional complaints, except as documented Integumentary/Breasts Skin/Breast: Reports system reviewed and no additional complaints, except as documented Endocrine Endocrine: Reports fatigue Hematologic/Lymphatic On Anticoagulants: No Patient History Medical History Anxiety disorder due to general medical condition with panic attack Atypical chest pain (~12/2016) Depression Diverticula of intestine Elevated liver enzymes Herpes Hypercholesterolemia Murmur Surgical History (Updated 12/11/20 @ 10:59 by MIRNA Archuleta) History of bilateral inguinal hernia repair History of cholecystectomy (07/04/17) History of herniorrhaphy History of third molar tooth extraction Status post endoscopy Social History marital status: household members: spouse and family occupational status: employed Smoking Status: Current some day smoker alcohol intake: current substance use type: does not use Smoking Status: Current some day smoker alcohol intake frequency: a few times a week Substance Use Type: does not use Exam Initial Vital Signs Initial Vital Signs: Vital Signs Temperature 98.4 F 01/05/21 11:00 Pulse Rate 79 01/05/21 11:00 Respiratory Rate 16 01/05/21 11:00 Blood Pressure 112/69 01/05/21 11:00 Pulse Oximetry 97 01/05/21 11:00 HENMT Head: normal to inspection and normocephalic Resp Effort & Inspection: normal respiratory effort Cardio Rate: regular rate Neuro General: patient alert, patient awake and moves all extremities Psych Appearance: grossly normal and well kempt Course Orders Ordered: ED Orders 01/05/21 11:08 XR chest 2V Stat Vital Signs Vital signs: Vital Signs - 8 hr 01/05/21 11:00 Temperature 98.4 F Pulse Rate 79 Respiratory Rate 16 Blood Pressure 112/69 Pulse Oximetry 97 Medical Decision Making Imaging Data Chest x-ray: Radiologist's Impression: [address] [id number] ReportSigned Patient: Molly Rosas EMR#: [id number]: [id number]:[id number]/Sex: 50 / FDate of Service: 01/05/21Loc: EDAccession Number: [id number] Procedure: XR chest 2V Ordering Provider: Luis Angel Michaels D.O. PROCEDURE: XR CHEST 2V INDICATIONS: covid TECHNIQUE: 2 views of the chest were acquired. COMPARISON: None. FINDINGS: Surgical changes and devices: Cholecystectomy clips are seen. Lungs and pleura: No significant infiltrates are seen. No pleural effusions or pneumothorax. Mediastinum: Mediastinal contours are normal. Heart size is normal. Bones and chest wall: No suspicious bony abnormalities. Soft tissues appear unremarkable. IMPRESSION: No significant infiltrates are seen. If there is clinical concern for a developing pulmonary process, a short-term followup chest series (with PA and lateral views, performed in deep inspiration) is suggested for further evaluation. Dictated by: Heladio Carlson M.D. on 01/05/2021 at 10:36 Approved by: Heladio Carlson M.D. on 01/05/2021 at 10:37 MDM Narrative Medical decision making narrative: Patient is known to be COVID positive. Her chest x-ray does not show any signs of infiltrates. She is not hypoxic. Patient be discharged home and was given current guidelines with regard to quarantine herself. Given return precautions. Discharge Plan Departure Patient Disposition: Home Clinical Impression: COVID-19 Instructions: DI for COVID-19 (Suspected or Confirmed ) Activity Restrictions/Additional Instructions: Current guidelines are that your to quarantine yourself for 10 days from the onset of your symptoms. You also need to be fever free for 24 hours and your other symptoms need to be improving. Return to the emergency department for any oxygen saturations that are consistently below 90. Contact your primary doctor for a follow-up. Prescriptions: No Action efinaconazole 10 % solution with applicator 1 applic topical BEDTIME Qty: 8 RF: 2 Systane Balance 0.6 % drops 1 drp ophthalmic (eye) BID PRN (Reason: dry eye(s)) Qty: 10 RF: 0 Systane Nighttime 94-3 % ointment 1 applic ophthalmic (eye) BEDTIME Qty: 3.5 RF: 3 valacyclovir 500 mg tablet 500 mg PO BID PRN (Reason: Cold Sores) Qty: 90 RF: 0 hydroxyzine HCl 25 mg tablet 25 mg PO QID PRN (Reason: anxiety) Qty: 30 RF: 3 Referrals: Susan Gonzalez ARNP [Primary Care Provider] -
[2021-01-05 12:13] VITALS: PULSE 84; O2SAT 96
== END 2021-01-05 12:14 | disposition home or self-care (01) ==
PROVIDERS: Emergency Provider Emergency Medicine; PCP Nurse Practitioner
DX: U07.1 COVID-19 (principal); R05 Cough
CPT/HCPCS: 71046; 99281; 99283

== ENCOUNTER 2021-05-08 09:06 | Observation (INO) | payer OTHER, SELFPAY ==
[2020-11-18 14:16] VITALS: BMI 30.5
[2021-05-08] VITALS (18 sets, daily range): BP systolic 110–159; BP diastolic 59–94; PULSE 62–116; RESP 10–19; TEMP 35.7–36.8; O2SAT 92–100; BMI 32.5
--- NOTE | 2021-05-08 | DI.RAD.S_ITS ---
PROCEDURE: XR TIBIA FIBULA LT 2V INDICATIONS: LEFT TIB/FIB FRACTURE TECHNIQUE: 2 views of the tibia and fibula were acquired. COMPARISON: None. FINDINGS: Intraoperative fluoroscopic views of the left tibia and fibula demonstrate intramedullary levi placement for a distal tibial fracture. There is also a proximal fibular fracture. IMPRESSION: Intraoperative views demonstrate ORIF of a distal tibia fracture. Proximal fibular fracture is also seen. Dictated by: Alessandro Mitchell M.D. on 05/08/2021 at 16:41 Approved by: Alessandro Mitchell M.D. on 05/08/2021 at 16:42
--- NOTE | 2021-05-08 | DI.RAD.S_ITS ---
PROCEDURE: XR TIBIA FIBULA LT 2V INDICATIONS: POST OP LEFT ANKLE FRACTURE TECHNIQUE: 2 views of the tibia and fibula were acquired. COMPARISON: [facility], CR, XR TIBIA FIBULA LT 2V, 05/08/2021, 14:43. FINDINGS: Status post anterograde left tibial nail placement with proximal and distal interlocking screws. Mild 2-3 mm displacement of the distal fracture fragment. Proximal fibular diaphyseal fracture is unchanged. IMPRESSION: Status post tibial ORIF with anatomic alignment of fracture fragments. Fibular fracture is in nearly anatomic alignment. Dictated by: Pasquale Peters M.D. on 05/08/2021 at 16:11 Approved by: Pasquale Peters M.D. on 05/08/2021 at 16:12
--- NOTE | 2021-05-08 09:09 | DI.RAD.S_ITS ---
PROCEDURE: XR KNEE LT 1TO2V INDICATIONS: fall with obvious ankle/tib TECHNIQUE: 2 views of the knee were acquired. COMPARISON: None. FINDINGS: Bones: There is a oblique fracture of the proximal fibula. No tibia fracture. Soft tissues: No joint effusion. No suspicious soft tissue calcifications. IMPRESSION: Left proximal fibular fracture. Dictated by: Alessandro Mitchell M.D. on 05/08/2021 at 8:48 Approved by: Alessandro Mitchell M.D. on 05/08/2021 at 8:51
--- NOTE | 2021-05-08 09:09 | DI.RAD.S_ITS ---
PROCEDURE: XR ANKLE LT 2V INDICATIONS: fall with pain, deformity TECHNIQUE: 3 views of the ankle were acquired. COMPARISON: None. FINDINGS: Bones: There is no oblique fracture of the distal tibia with 1 cm displacement. Ankle mortise is normally aligned. No suspicious bony lesions. Soft tissues: No tibiotalar joint effusion. Achilles tendon appears normal. IMPRESSION: Oblique fracture of the distal fibula with displacement. Dictated by: Alessandro Mitchell M.D. on 05/08/2021 at 8:52 Approved by: Alessandro Mitchell M.D. on 05/08/2021 at 8:55
--- NOTE | 2021-05-08 09:17 | PC.NURSE ---
pt rec'd 20 mg ketamine and 100 mcg fentanyl in ambulance
--- NOTE | 2021-05-08 09:30 | ED_ITS ---
HPI - Extremity Injury (Lower) General Chief Complaint: Extremity Injury, Lower Stated Complaint: Ankle pain Time Seen by Provider: 05/08/21 09:10 Source: EMS Mode of arrival: EMS History of Present Illness HPI Narrative: 50F smoker with otherwise relatively benign medical history, takes no chronic meds presents by EMS for evaluation of a ground level fall resulting in an obvious injury to her left ankle. She states that she was walking this morning and slipped on the ice and felt and heard a crack in her ankle. She is unable to ambulate due to pain. She denies any head neck or back pain. She denies chest pain or shortness of breath. She denies any dizziness, weakness or lightheadedness which contributed to her fall. She has been NPO since about 715 this morning when she had coffee with some artificial Creamer. Related Data Previous Rx's Medication Instructions Recorded hydroxyzine HCl 25 mg tablet 25 mg PO QID PRN #30 tab 02/28/19 propylene glycol 0.6 % eye drops 1 drp OPHTHALMIC (EYE) BID PRN #10 12/11/20 (Systane Balance) ml valacyclovir 500 mg tablet 500 mg PO BID PRN #90 tab 12/11/20 white petrolatum-mineral oil 94 1 applic OPHTHALMIC (EYE) BEDTIME 12/11/20 %-3 % eye ointment (Systane #3.5 g Nighttime) efinaconazole 10 % topical 1 applic TOPICAL BEDTIME #8 ml 01/04/21 solution with applicator Allergies Allergy/AdvReac Type Severity Reaction Status Date / Time No Known Drug Allergies Allergy Verified 11/21/19 09:02 Review of Systems Review of Systems Narrative: GENERAL: Denies chills, fatigue, malaise, fever, sweats. HEENT: Denies sinus pain, ear pain, sore throat, difficulty swallowing, dizziness. RESPIRATORY: Denies dyspnea, cough, wheezing, hemoptysis, sputum. CARDIOVASCULAR: Denies chest pain, palpitations, orthopnea, edema, GASTROINTESTINAL: Denies nausea, vomiting, abdominal pain, diarrhea, constipation, melena. : Denies dysuria, frequency, incontinence, hematuria, urinary retention. MUSCULOSKELETAL: See HPI SKIN: Denies rash, skin lesions, or other NEUROLOGIC: Denies weakness, headache, numbness, change in speech, confusion, seizures, incoordination. PSYCHIATRIC: No concerning psychosocial issues. 12 point review of systems is negative except for those stated above Patient History Medical History Anxiety disorder due to general medical condition with panic attack Atypical chest pain (~12/2016) Depression Diverticula of intestine Elevated liver enzymes Herpes Hypercholesterolemia Murmur Surgical History History of bilateral inguinal hernia repair History of cholecystectomy (07/04/17) History of herniorrhaphy History of third molar tooth extraction Status post endoscopy Social History marital status: household members: spouse and family occupational status: employed Smoking Status: Current some day smoker alcohol intake: current substance use type: does not use Smoking Status: Current some day smoker alcohol intake frequency: a few times a week Substance Use Type: does not use Exam Narrative Exam Narrative: GENERAL: [50 year old patient appears stated age. Well-developed patient, in moderate distress, leg is splinted but still in some pain. GCS 15 HEAD: Atraumatic. Normocephalic. EYES: Pupils equal round and reactive. Extraocular motions intact. No scleral icterus. No injection or drainage. ENT: Nose without bleeding, purulent drainage. Throat without erythema, tonsillar hypertrophy or exudate. Airway patent. NECK: Trachea midline. Non tender CARDIOVASCULAR: Regular rate and rhythm without murmurs, gallops, or rubs. RESPIRATORY: Clear to auscultation. Breath sounds equal bilaterally. No wheezes, rales, or rhonchi. GASTROINTESTINAL: Abdomen soft, non-tender, nondistended. EXTREMITIES: Tenderness to palpation overlying proximal fibula, otherwise knee without effusion or ligamentous laxity. Compartments are soft, significant tenderness to palpation of distal tibia, no breaks in the skin, cap refill less than 2 seconds, otherwise isolated and neurovascularly intact. BACK: Nontender without deformity or crepitance. No flank tenderness. NEURO: AOx3. SKIN: No rash or erythema of visible areas Initial Vital Signs Initial Vital Signs: Vital Signs Temperature 98.1 F 05/08/21 09:07 Pulse Rate 82 05/08/21 09:07 Respiratory Rate 14 05/08/21 09:07 Blood Pressure 140/71 05/08/21 09:07 Pulse Oximetry 97 05/08/21 09:07 Course Orders Ordered: ED Orders 05/08/21 09:09 XR ankle LT 2V Stat XR knee LT 1to2V Stat 05/08/21 09:50 COVID19 - ADMIT (ADVANCED [employer]UFA[employer]URING ENGINEER swab/PCR) Stat 05/08/21 10:00 CBC Auto Diff [Complete Blood Count AUTO DIFF] Stat CMP [Comprehensive Metabolic Panel] Stat Discontinued Medications Hydromorphone HCl (Hydromorphone 1 Mg Inj) 1 mg IV NOW ONE Stop: 05/08/21 09:38 Last Admin: 05/08/21 09:50 Dose: 1 mg Documented by: ALYSA Ondansetron HCl (Ondansetron 4 Mg/2 Ml Inj) 4 mg IV NOW ONE Stop: 05/08/21 09:38 Last Admin: 05/08/21 09:50 Dose: 4 mg Documented by: ALYSA Vital Signs Vital signs: Vital Signs - 8 hr 05/08/21 09:07 05/08/21 09:53 05/08/21 10:00 Temperature 98.1 F Pulse Rate 82 72 74 Respiratory Rate 14 Blood Pressure 140/71 Pulse Oximetry 97 99 96 MDM - Extremity Injury (Lower) Lab Data Result diagrams: 05/08/21 10:00 05/08/21 10:00 Labs: Lab Results 05/08/21 05/08/21 Range/Units 10:00 10:00 WBC 7.2 (4.5-11.0) X10^3/uL RBC 4.79 (4.0-5.2) X10^6/uL Hgb 13.8 (12.0-16.0) g/dL Hct 40.8 (36-46) % MCV 85.2 (80-100) fL MCH 28.9 (26-34) PG MCHC 33.9 (30-36) % RDW 13.1 (11.6-14.8) % Plt Count 294 (150-400) X10^3/uL Neut % (Auto) 72.5 (50-75) % Lymph % (Auto) 20.1 L (25-40) % [place] % (Auto) 5.7 (3-14) % Eos % (Auto) 1.3 L (2-4) % Baso % (Auto) 0.4 (0-2) % Neut # (Auto) 5200 (5055-1800) /uL Lymph # (Auto) 1500 (7320-0891) /uL [place] # (Auto) 400 (0-900) /uL Eos # (Auto) 100 (0-450) /uL Baso # (Auto) 0 (0-100) /uL Sodium 137 (137-145) mmol/L Potassium 4.0 (3.4-5.1) mmol/L Chloride 105 (98-107) mmol/L Carbon Dioxide 26 (22-32) mmol/L BUN 13 (7-17) mg/dL Creatinine 0.65 (0.52-1.04) mg/dL Estimated GFR > 60.0 (>60) mL/min BUN/Creatinine Ratio 20.0 (6-22) Glucose 112 H (70-100) mg/dL Calcium 9.0 (8.4-10.2) mg/dL Total Bilirubin 0.4 (0.2-1.3) mg/dL AST 28 (14-36) IU/L ALT 25 (<35) IU/L Alkaline Phosphatase 39 (38-126) U/L Total Protein 7.5 (6.3-8.2) g/dL Albumin 4.2 (3.5-5.0) g/dL Globulin 3.3 (1.7-4.1) g/dL Albumin/Globulin Ratio 1.3 (1.0-2.8) Imaging Data Extremity x-ray #1: Radiologist's Impression: Launch?[place] [address] XRay Report Signed Patient: Molly Rosas MR#: [id number] : 1970 Acct:[id number] Age/Sex: 50 / F Date of Service: 05/08/21 Loc: ED Accession Number: [id number] ?? Procedure: XR knee LT 1to2V Ordering Provider: Sarthak Alarcon D.O. PROCEDURE:? XR KNEE LT 1TO2V ? INDICATIONS:? fall with obvious ankle/tib ? TECHNIQUE:? 2 views of the knee were acquired.? ? COMPARISON:? None. ? FINDINGS:? ? Bones:? There is a oblique fracture of the proximal fibula.? No tibia fracture. ? Soft tissues:? No joint effusion.? No suspicious soft tissue calcifications.? ? ? IMPRESSION:? Left proximal fibular fracture. ? ? Dictated by: Alessandro Mitchell M.D. on 05/08/2021 at 8:48 ? ? Approved by: Alessandro Mitchell M.D. on 05/08/2021 at 8:51 ? Extremity x-ray #2: Radiologist's Impression: [address] [address] XRay Report Signed Patient: Molly Rosas MR#: [id number] : 1970 Acct:[id number] Age/Sex: 50 / F Date of Service: 05/08/21 Loc: ED Accession Number: [id number] ?? Procedure: XR ankle LT 2V Ordering Provider: Sarthak Alarcon D.O. PROCEDURE:? XR ANKLE LT 2V ? INDICATIONS:? fall with pain, deformity ? TECHNIQUE:? 3 views of the ankle were acquired.? ? COMPARISON:? None. ? FINDINGS:? ? Bones:? There is no oblique fracture of the distal tibia with 1 cm displacement.? Ankle mortise is normally aligned.? No suspicious bony lesions.? ? Soft tissues:? No tibiotalar joint effusion.? Achilles tendon appears normal.? ? ? IMPRESSION:? Oblique fracture of the distal fibula with displacement. ? ? Dictated by: Alessandro Mitchell M.D. on 05/08/2021 at 8:52 ? ? Approved by: Alessandro Mitchell M.D. on 05/08/2021 at 8:55 ? Discharge Plan Departure Patient Disposition: Admitted As Inpatient Clinical Impression: Closed tibia fracture, Closed fibular fracture Admit Date/Time: 05/08/21 10:30 Admit Provider: Kaya Pedersen
[2021-05-08] MEDS: HYDROMORPHONE 1 MG INJ IV (09:50)
[2021-05-08] MEDS: ONDANSETRON 4 MG/2 ML INJ IV ×3 (09:50→18:34)
[2021-05-08 10:18] LABS: Add Manual Diff / Slide Review NO; Basophils Absolute Auto 0 /uL (0-100); Basophils Percent Auto 0.4 % (0-2); Eosinophils Absolute Auto 100 /uL (0-450); Eosinophils Percent Auto 1.3 % (2-4); Hematocrit 40.8 % (36-46); Hemoglobin 13.8 g/dL (12.0-16.0); Lymphocytes Absolute Auto 1500 /uL (1100-4500); Lymphocytes Percent Auto 20.1 % (25-40); Mean Corpuscular HGB Conc 33.9 % (30-36); Mean Corpuscular Hemoglobin 28.9 PG (26-34); Mean Corpuscular Volume 85.2 fL (80-100); Monocytes Absolute Auto 400 /uL (0-900); Monocytes Percent Auto 5.7 % (3-14); Neutrophils Absolute Auto 5200 /uL (1500-7000); Neutrophils Percent Auto 72.5 % (50-75); Platelet Count 294 X10^3/uL (150-400); Red Blood Cell Count 4.79 X10^6/uL (4.0-5.2); Red Cell Distribution Width 13.1 % (11.6-14.8); White Blood Cell Count 7.2 X10^3/uL (4.5-11.0)
[2021-05-08 10:32] LABS: Alanine Aminotransferase 25 IU/L (<35); Albumin 4.2 g/dL (3.5-5.0); Albumin Globulin Ratio 1.3 (1.0-2.8); Alkaline Phosphatase 39 U/L (38-126); Aspartate Aminotransferase 28 IU/L (14-36); Bilirubin Total 0.4 mg/dL (0.2-1.3); Blood Urea Nitrogen 13 mg/dL (7-17); Carbon Dioxide 26 mmol/L (22-32); Chloride 105 mmol/L (98-107); Estimated Glomerular Filt Rate > 60.0 mL/min (>60); Globulin 3.3 g/dL (1.7-4.1); Glucose 112 mg/dL (70-100); HEMOLYSIS 25 (0-50); Sodium 137 mmol/L (137-145); Total Protein 7.5 g/dL (6.3-8.2)
--- NOTE | 2021-05-08 10:50 | P.HP_ITS ---
History of Present Illness History of Present Illness Date Patient Seen: 05/08/21 Time Patient Seen: 10:50 Date of Onset of Symptoms: 05/08/21 Chief complaint: Ankle pain Narrative: Patient is a 50-year-old female that presents after a ground level fall slipping on ice this morning while she was out of her chicken coop. She has a history of generalized anxiety. States she has a history of a heart murmur. Takes no medications. States she has been feeling palpitations couple times a week has an upcoming appointment with her doctor. No nausea vomiting fevers or chills. Did have a COVID diagnosis in December. Denies any ongoing symptoms. She is not on any hormonal control. No personal or family history of blood clots. She denies any other injuries. After the fall endorsed deformity immediate pain to the left leg from the knee to the ankle. Patient History Medical History Anxiety disorder due to general medical condition with panic attack Atypical chest pain (~12/2016) Depression Diverticula of intestine Elevated liver enzymes Herpes Hypercholesterolemia Murmur Surgical History History of bilateral inguinal hernia repair History of cholecystectomy (07/04/17) History of herniorrhaphy History of third molar tooth extraction Status post endoscopy Family & Social History Social History: household members spouse,family Safety & Behavioral: Feels Safe in Current Yes Environment Been Physically Hurt or No Threatened By a Person Tobacco & Substance use: Smoking Status Current some day smoker alcohol intake current alcohol intake frequency a few times a week Substance Use Type does not use Comment: States she does not smoke Meds Home Medications and Allergies Home Medications Medication Instructions Recorded Confirmed Type hydroxyzine HCl 25 mg tablet 25 mg PO QID PRN #30 tab 02/28/19 11/21/19 Rx propylene glycol 0.6 % eye drops 1 drp OPHTHALMIC (EYE) BID PRN #10 12/11/20 12/11/20 Rx (Systane Balance) ml valacyclovir 500 mg tablet 500 mg PO BID PRN #90 tab 12/11/20 12/11/20 Rx white petrolatum-mineral oil 94 1 applic OPHTHALMIC (EYE) BEDTIME 12/11/20 12/11/20 Rx %-3 % eye ointment (Systane #3.5 g Nighttime) efinaconazole 10 % topical 1 applic TOPICAL BEDTIME #8 ml 01/04/21 Rx solution with applicator Allergies Allergy/AdvReac Type Severity Reaction Status Date / Time No Known Drug Allergies Allergy Verified 11/21/19 09:02 Review of Systems Review of Systems Narrative: Denies fevers chills nausea vomiting numbness or tingling. Does endorse intermittent chest pains/heart palpitations or heart racing event several times a week. Ongoing nothing new this morning. No history of blood clots through bleeding disorders. No current use of tobacco. ROS: Yes All systems reviewed with the patient and are negative except as otherw ise documented Exam Vital Signs (past 8 hours): - 05/08/21 09:07 05/08/21 09:53 05/08/21 10:00 Temperature 98.1 F Pulse Rate 82 72 74 Respiratory Rate 14 Blood Pressure 140/71 Pulse Oximetry 97 99 96 Oxygen Delivery Method Room Air Narrative Exam Narrative: General exam is alert oriented female mild discomfort lying in stretcher in the emergency room. Field splint on the left lower extremity. HEENT exam normocephalic atraumatic Respiratory exam unlabored on room air lungs clear to auscultation bilaterally Cardiac exam regular rate and rhythm no significant murmur detected by this physician on auscultation Moving bilateral upper extremities full range of motion no tenderness to palpation Moves right lower extremity without difficulty no deformity. Calf soft dem onstrates 5/5 dorsiflexion plantar flexion. Sensation intact to light touch. Left lower extremity demonstrates left lower extremity in a field splint. Skin is closed no wounds. Mild swelling and deformity at the level of the tibia shaft. Tenderness along the tibia shaft from the knee down to the ankle. No blisters. Compartments are soft. Wiggles toes. Endorses sensation grossly intact to light touch in the toes. Palpable dorsalis pedis pulse. Normal patella mobility. Thigh is soft. No knee effusion noted. No signs of infection. Objective Imaging Lower extremity x-ray: My impression: Two views of the left ankle and knee demonstrate displaced spiral left distal tibia fracture and proximal fibula fracture Labs Result Diagrams: 05/08/21 10:00 05/08/21 10:00 Labs: Laboratory Results - last 24 hr 05/08/21 05/08/21 10:00 10:00 WBC 7.2 RBC 4.79 Hgb 13.8 Hct 40.8 MCV 85.2 MCH 28.9 MCHC 33.9 RDW 13.1 Plt Count 294 Neut % (Auto) 72.5 Lymph % (Auto) 20.1 L [place] % (Auto) 5.7 Eos % (Auto) 1.3 L Baso % (Auto) 0.4 Neut # (Auto) 5200 Lymph # (Auto) 1500 [place] # (Auto) 400 Eos # (Auto) 100 Baso # (Auto) 0 Sodium 137 Potassium 4.0 Chloride 105 Carbon Dioxide 26 BUN 13 Creatinine 0.65 Estimated GFR > 60.0 BUN/Creatinine Ratio 20.0 Glucose 112 H Calcium 9.0 Total Bilirubin 0.4 AST 28 ALT 25 Alkaline Phosphatase 39 Total Protein 7.5 Albumin 4.2 Globulin 3.3 Albumin/Globulin Ratio 1.3 Assessment & Plan Assessment and plan (1) Closed tibia fracture: Status: Acute (2) Closed fibular fracture: Status: Acute (3) Anxiety disorder due to general medical condition with panic attack: Status: Acute (4) Heart palpitations: Status: Acute Plan Left closed tib-fib fracture, displaced. Patient has a displaced tib-fib fracture. She is indicated for surgical management. I discussed options for treatment. Recommend intramedullary nailing. Discussed typically the stabilization of only the tibia is necessary but will assess for syndesmotic stability following tibia fixation. NPO after 630 will plan for OR this afternoon. Given patient's history of complaints of heart palpitations will get preoperative EKG. Remainder of labs are normal. Discussed postop with intramedullary levi would allow early mobilization and weight-bearing. Discussed risks and benefits and alternatives to surgery. Given displaced fracture and difficulty to hold reduction and long leg cast I recommend surgical treatment. The risks and benefits of the procedure have been discussed with the patient given the opportunity to ask questions. The risks of surgery include but are not limited to infection, malunion, nonunion, persistence of pain, damage to nerves and blood vessels, posttraumatic arthritis, DVT, PE, cardiopulmonary complications and . The patient expressed a thorough understanding of the risks and benefits of surgery and has elected to proceed. Consent was signed. No allergies to antibiotics. Ancef will be used as preoperative antibiotic. Patient has no current signs of compartment syndrome. Will be admitted overnight after surgery to monitor for compartment syndrome and for pain control. If doing well likely discharge on postoperative day 1 home if clears physical therapy. Will use Xarelto for DVT prophylaxis 10 mg p.o. daily started postop day 1 times 12 days COVID-19 COVID-19 status: Result pending Time Spent With Patient Time with patient: less than 30 minutes Critical Care time: I spent a total of [] minutes of critical care time on this patient's care today; this time is exclusive of procedural time. Quality VTE Deep Vein Thrombosis/Pulmonary Embolism Present on Admission: No
[2021-05-08 10:52] LABS: COVID19 - ADMIT (NP swab/PCR) Negative (Negative)
[2021-05-08] MEDS: HYDROMORPHONE 0.5 MG INJ 1 MG ×2 (11:25→12:33)
[2021-05-08] MEDS: LACTATED RINGERS 1,000 ML 42 ML IV ×2 (12:35→15:11)
[2021-05-08] MEDS: CEFAZOLIN 2 GM/20 ML SYRINGE IV ×2 (12:57→18:34)
--- NOTE | 2021-05-08 14:02 | SUR.OPER ---
Addendum entered by Gwen Cates R.N. 05/08/21 14:18: Patients Richie took patients silver colored wedding rings, silver colored wrap bracelet and cell phone. The only personal belongings brought with patient to pre-op area was her pants. There were placed in patient belongings bag and brought with patient to PACU. Original Note: Supine on padded Michael bed, head on pillow, arms secured on padded arm boards at <90 degrees abduction, legs uncrossed, tape across lower torso as safety belt not compatible for this table, tape over blanket over right lower leg. Left leg in control of the surgeon.
[2021-05-08] MEDS: BUPIVACAINE 0.25% (PF) 30 ML, EPINEPHrine 0.15 MG INJ (14:25)
[2021-05-08] MEDS: HYDROGEN PEROXIDE 473 ML SOLUTION 60 ML TOP (15:18)
[2021-05-08] MEDS: fentaNYL 100 MCG/2 ML INJ IV ×2 (15:43→15:48)
[2021-05-08] MEDS: OXYCODONE/ACETAMINOPHEN 5/325 TABLET 1 TAB PO (15:45)
--- NOTE | 2021-05-08 15:50 | PM.OP.1 ---
Operative Date/Time/Diagnoses Date of procedure: 05/08/21 Time of procedure: 13:30 Pre-op diagnosis: Left tib-fib fracture S82. 290A Post-op diagnosis: same Procedure & Clinicians Procedure: Intramedullary nail left tibia CPT code 35146 Same procedure as scheduled: Yes Indications: Patient is a 50-year-old female had a ground level fall slipping on ice this morning while attending her chicken coop. She had immediate pain inability to weightbear and deformity. She was brought to [facility] Emergency Room where she was found to have a displaced tib-fib shaft fracture on the left. She was indicated for operative treatment for her displaced fracture. The risks and benefits of the procedure have been discussed with the patient even opportunity to ask questions. The risks of surgery include but are not limited to infection, malunion, nonunion, persistence of pain, damage to nerves and blood vessels, posttraumatic arthritis, DVT, PE, cardiopulmonary complications and . The patient expressed a thorough understanding of the risks and benefits of surgery and has elected to proceed. Consent was signed. Surgeon: Kaya Pedersen Click Yes if Unassisted: Yes Anesthesia Type: General and Local (30 cc of 0.25% Marcaine with epinephrine) Operative Notes Findings: Displaced spiral distal 3rd tibial shaft fracture and proximal fibula fracture. Intraoperative fluoroscopy confirmed no evidence of posterior malleolus fracture. Following fixation of the left tibia fracture the syndesmosis was stressed and was stable. A knee ligamentous examination was also stable at the end of the case Closure Type: primary Specimen(s): none sent Prosthetic devices, grafts, tissues, transplants, or devices: Taylor and nephew Tri Gen [place] nail 8.5 mm x 32 cm With 4.5 mm locking screws 37.5, 32.5, 30, 32.5 Estimated Blood Loss (mL): 50 Blood products transfused: none Tourniquet time (min): 0 Procedure in detail: Patient was seen in the emergency room. Exam was completed and the site of surgery was marked informed consent confirmed. She was brought back to the operating room by the anesthesia team. She was positioned supine on the operative table. Flat Michael table was utilized for appropriate positioning and visualization. All bony prominences were well padded. A SCD was placed on the contralateral lower extremity. A nonsterile thigh tourniquet was placed but not inflated. An ipsilateral thigh bump was placed. The left lower extremities prepped and draped in the standard sterile fashion. A formal time-out procedure was performed confirming the patient's side and site of surgery administration of appropriate preoperative antibiotics and presence of informed consent. 2 g Ancef were administered. Implants were in the room and accounted for. Attention was turned to the left lower extremity. The C-arm was brought in and provisional reduction was completed with a traction and the use of percutaneous reduction clamps. The leg was positioned over a large triangle in a high flexion position to access the starting point for a patellar tendon splitting technique. And incision from the anterior margin of the patella approximately 4 cm towards the tibial tubercle was completed this was taken down through the skin and the patellar tendon was identified. A deep knife was used for a patellar tendon splitting approach. A Gelpi was then inserted. The guidewire was then positioned carefully just medial to the lateral tibial spine and at the anterior margin of the tibia on the AP and lateral views respectively. Next the wire regional company truck driver was used to advance the guidewire. Once this was in appropriate position the opening Reamer was then utilized through the tissue protector. Next the ball-tip wire was passed. This was passed down to the level of the physeal scar. The length was measured and a 32 cm nail was selected. The tibia was then sequentially reamed. A 9 mm Reamer was 1st passed this encountered a lot of chatter at the isthmus as this patient was quite narrow. With the amount of chatter was felt that a 8.5 nail was going to need to be the choice for this patient and our goal was to ream to 10.5 for an 8.5 nail. Sequential reaming was completed carefully in 0.5 mm increments from 9-9.5, 10 and 10.5. Once this was completed the 8.5 x 32 nail was opened and then passed. AP and lateral fluoroscopy confirmed appropriate depth. Once this was completed the nail was proximally locked with 2 4.5 mm locking screws. Attention was then turned distally and utilizing a perfect [place] technique 3 distal interlocking screws were placed 1st in the AP plane with careful tissue dissection. And then the leg was extended for perfect [place] technique completing the 2 medial to lateral locking screws. Length rotation and alignment were appropriate and confirmed on AP and lateral fluoroscopic imaging. Stress exam of the syndesmosis was then completed and stable. The triangle was removed and a knee ligament exam was also stable. The wounds were irrigated. The patellar tendon was closed with 0 Vicryl. The paratenon was closed with 2-0 Vicryl the subcutaneous tissue with 2-0 Vicryl and 4-0 Monocryl. [place] were used in the skin. Dressings were placed with Xeroform gauze and Tegaderm. A 4 in and a 6 in Jah wrap were then placed. Of note patient's compartments were soft throughout the procedure and at the end of the case. 30 cc of local anesthetic was administered around the incision sites prior to dressing placement. Complications: none Post-operative Condition: stable Disposition: PACU Plan for aftercare: Patient will be weightbear as tolerated on the left lower extremity using assistive devices, crutches. Will have Lovenox DVT prophylaxis while in the hospital and discharged with Xarelto for 12 days. Will be admitted overnight for compartment monitoring and pain control. Anticipate discharge on postop day 1 if pain controlled tolerating p.o. diet and evaluated safer home by physical therapy
[2021-05-08] MEDS: HYDROMORPHONE 2 MG INJ IV (15:57)
[2021-05-08] MEDS: LORazepam 2 MG/ML INJ 0.5 MG IV (15:58)
[2021-05-08] MEDS: MEPERIDINE 50 MG/ML INJ 12.5 MG IV (16:24)
[2021-05-08] MEDS: KETOROLAC 30 MG/ML VIAL IV (16:25)
[2021-05-08] MEDS: OXYCODONE IR 5 MG TABLET PO (17:28)
--- NOTE | 2021-05-08 17:29 | SUR.PHASEI ---
pacu: 1535- Patient settled into pacu. non responsive. vss. xray called for . left leg elevated w/pillows and fob. left foot dp 2+/palpable,warm,pink. 1545-xrays completed. c/o alot of pain left leg and knee area. ice pack on. meds titrated for comfort. able to feel toes,move them well .Denies numb or tinglin in toes. 1630-meds for pain iv/po, ativan for anxiety, and meperidine for shivering given in pacu w/good effect. patient on 3l nc due to desated while dozing. leg readjusted for comfort. 1645-more relaxed and calmer. vss. meets criteria for transfer. report to floor rn by phone and questions answered. in room updated. oxygen now down to 2l nc. respirations deeper/regular. CSM lle with no deficits. 1650-off monitors. transitioning to floor by rosa . hob elevated 45 degrees. one bag of clothes recieved from OR to room with patient. 1700-in room 204. Care transitioned to Neli Goldman RN. oxygen at 2l nc.
[2021-05-08] MEDS: HYDROMORPHONE 0.5 MG INJ IV (18:34)
[2021-05-08] MEDS: LACTATED RINGERS 1,000 ML 100 ML IV (18:34)
[2021-05-08] MEDS: hydrOXYzine pamoate 25 MG CAPSULE PO (18:35)
[2021-05-08] MEDS: ACETAMINOPHEN 325 MG TABLET 975 MG PO (21:33)
[2021-05-08] MEDS: DOCUSATE 100 MG CAPSULE PO (21:33)
[2021-05-08] MEDS: OXYCODONE IR 10 MG TABLET PO (21:34)
[2021-05-08] MEDS: HYDROMORPHONE 0.5 MG INJ 0.2 MG IV (21:35)
[2021-05-09] VITALS: O2SAT 97
[2021-05-09] MEDS: KETOROLAC 30 MG/ML VIAL IV (00:11)
[2021-05-09] MEDS: CEFAZOLIN 2 GM/20 ML SYRINGE IV (00:11)
[2021-05-09] MEDS: OXYCODONE IR 10 MG TABLET PO ×3 (03:37→10:35)
[2021-05-09 03:44] VITALS: BP 124/69; PULSE 97; RESP 18; TEMP 36.9; O2SAT 97
[2021-05-09 03:47] VITALS: O2SAT 97
[2021-05-09 07:15] VITALS: BP 113/66; PULSE 85; RESP 17; TEMP 36.9; O2SAT 100
[2021-05-09 07:35] VITALS: O2SAT 98
[2021-05-09] MEDS: DOCUSATE 100 MG CAPSULE PO (08:11)
[2021-05-09] MEDS: ACETAMINOPHEN 325 MG TABLET 975 MG PO (08:12)
[2021-05-09] MEDS: ENOXAPARIN 40 MG/0.4 ML SYRINGE SUBCUT (09:59)
--- NOTE | 2021-05-09 10:05 | CM.DANOTE ---
DCP Assessment: Patient is a 50 yr old female who was admitted for broken ankle that needed surgical repair preformed by Dr. Roman. Patient currently lives in [place] with her . patient was feeding her chickens out side and slipped and fell on ice. came into the ED and was taken to the OR. patient is independent with all ADLs and drives at her baseline. I: [facility] Plan: DC home with when medically cleared and PT and seen the patient. no other Identified DC planning needs at this time. [place] Discharge Planning/Care Management CM Discharge Assessment Start: 05/09/21 10:03 Freq: Status: Active Protocol: Document 05/09/21 10:04 (Rec: 05/09/21 10:05 [id number]) Discharge Planning Assessment Assigned Sales [employer] [place] DPOA/Assigned Designee Name Richie Rosas () Contact Information [phone] Advance Directives? No History Provided By Patient,Medical Record Has Patient been admitted in last 30 No days? Prior Living Arrangements House Household Members spouse,family Type of transporation used prior to Drives own vehicle admit Independent with ADL's Yes Is patient alert and oriented? Yes Barriers to Discharge No Discharge Plan Home Referrals Initiated None needed Whiteboard Updated in Patient Room with Yes name and ext. # of Sales Engineer [employer] Review Status In Process Next Review Type Continued Stay Review
--- NOTE | 2021-05-09 10:16 | PT.IIE ---
Current Diagnoses Anxiety disorder due to known physiological condition (05/08/21) Panic disorder [episodic paroxysmal anxiety] (05/08/21) Palpitations (05/08/21) Unspecified fracture of shaft of unspecified tibia, initial encounter for closed fracture (05/08/21) Unspecified fracture of shaft of unspecified fibula, initial encounter for closed fracture (05/08/21) Surgery Performed Operation Date: 05/08/21 12:30 Actual Procedures p Intramedullary Nail Tibia(Left) - Kaya Pedersen MD Surgical History (Last Reviewed 05/08/21 @ 10:52 by Kaya Pedersen MD) History of third molar tooth extraction Status post endoscopy Medical History (Last Reviewed 05/08/21 @ 10:52 by Kaya Pedersen MD) Anxiety disorder due to general medical condition with panic attack Atypical chest pain (~12/2016) Depression Diverticula of intestine Elevated liver enzymes Herpes Hypercholesterolemia Murmur Physical Therapy Inpatient Evaluation/Re-Eval M1 PT/OT-IP Prior Functional Status Start: 05/09/21 08:31 Freq: NEEDED Status: Active Protocol: Document 05/09/21 10:16 AW (Rec: 05/09/21 11:34 AW [id number]) Medical Review Prior Functional Status Medical History Reviewed Yes Communication WNL. No deficits noted. Mobility and Gait Independent without AD. Pt states she has been less active over the past few years following two surgeries but is able to walk without any meaningful limit. Activities of Daily Living and IADL's Independent with all ADL. 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 Prior Functional Level (Other details) Pt had hernia surgery and cholecystectomy in the past two years. Social History Household Members spouse,family Living Arrangements House Number of Floors (Floors) Two Floors Number of Stairs To Enter/Railing? 2 steps up to the porch with no rails. 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 She lives with her spouse who is recovering from shoulder surgery but is able to assist at home. Their college-aged son also lives with them and is able to assist. M2 PT-IP Current Condition Start: 05/09/21 08:31 Freq: NEEDED Status: Active Protocol: Document 05/09/21 10:16 AW (Rec: 05/09/21 11:34 AW [id number]) Physical Therapy Current Condition Current Condition Evaluation Date 05/09/21 Treatment Diagnosis tib/fib fx s/p ORIF; difficulty in walking Onset Date 05/08/21 M3 PT-IP Subjective Start: 05/09/21 08:31 Freq: NEEDED Status: Active Protocol: Document 05/09/21 10:16 AW (Rec: 05/09/21 11:34 AW [id number]) Subjective Physical Therapy Visit Type Type Initial Evaluation Visit Start Time 09:39 Visit Stop Time 10:16 Total Visit Minutes 37 Notes Pt's spouse was present throughout this encounter and participated in caregiver training. Number of MATZO FORMING MACHINE OPERATOR Visits 0 Physical Therapy Visit Comments Patient Comments Pt is willing to participate with PT Patient Goals Return home [place] with family support. Therapy Pain Assessment Pain When Pain Assessed During Weight Bearing Pain Present Pain Present Pain Reported Location Left Leg Intensity 4 Scale Used 1/10 at rest Pain Management Techniques Apply Cold,Elevation,Re- positioning,Timing of Activity with Medications M4 PT-IP Mobility and Gait Start: 05/09/21 08:31 Freq: NEEDED Status: Active Protocol: Document 05/09/21 10:16 AW (Rec: 05/09/21 11:34 AW [id number]) PT-Bed Mobility Assessment Supine to Sit Supine to Sit Standby Assistance Sit to Supine Sit to Supine Standby Assistance PT-Transfer Assessment Sit to and From Stand Sit to and from Stand Contact Guard Assistance, Minimal Assistance,2 Person Assistance Equipment Transfer Assistive Device Gait Belt,Front Wheeled Walker Orthotic/Prosthetic Devices or Brace: No Transfers Transfer Destination Bed,Chair Transfer Technique pt ambulated with FWW Transfer Ability Level of Assist Contact Guard Assistance Comments Mobility Comments Pt was lying in bed as PT arrived. She sat up on left EOB SBA and stood using FWW at first to pull. PT educated pt to leave at least one hand on the bed to push off and pt improved from min assist to CGA for sit to stand. She ambulated 30 feet with FWW to the hallway and transferred to w/c CGA. She was pushed in w/ c to the stairs. She stood and used FWW to ambulate 10 feet to the platform step. PT educated pt on stair climbing technique and discussed home entry options at home. With PT and pt's spouse on either side providing max A x 2, pt attempted to lift either leg to the platform step but was unable to bear that much weight due to pain. Pt stated she could sit on the second step of her porch with assist, turn around in sitting to face the front door, and stand with assist from her and son. PT and pt's spouse lowered pt to the ground and then provided mod assist x 2 for pt to stand. She then sat in the w/c and was pushed back to her room. Pt stated she would like to trial axillary crutches. With crutches, pt required min assist to walk 10 feet to the chair and to transfer. Weightbearing was more painful with crutches than with FWW. Pt transferred back to bed using FWW SBA and was left with call light and tray table in reach. Gait Assessment Gait Gait Assistance Required: Contact Guard Assist,Minimum Assistance Distance (Feet) 30 Able to Maintain Weight Bearing Status Yes During Gait Assistive Devices Assistive Device Gait Belt,Front Wheeled Walker ,Axillary Crutches Orthotic/Prosthetic Devices or Brace: No Gait Deviations General Gait Pattern Antalgic,Decreased Stride Length,Decreased Feet Clearance,Step-to Gait Factors Limiting Gait Function Factors Limiting Gait Function Limited Range of Motion,Pain, Poor Balance Comments Gait Comments Pt trialed FWW and axillary crutches. She required SBA/CGA with FWW and min assist with crutches. PT recommending FWW for home use at this time. Stair Climbing Assessment Evaluation Level of Assist On Stairs Moderate Assistance,Maximal Assistance,2 Person Assistance Devices Stair Climbing Assistive Devices None Comments Stair Climbing Comments See mobility comments for details. Pt will be able to sit on second step, turn, and have assist from her family to stand. She will then be able to use the walker to get in to the house. PT-Balance Assessment Sitting Balance and Reactions Static Sitting Balance Ability Normal Dynamic Sitting Balance Ability Normal Standing Balance and Reactions Static Standing Balance Ability Fair Dynamic Standing Balance Ability Fair Device Used FWW, crutches M5 PT-IP Objective Assessments Start: 05/09/21 08:31 Freq: NEEDED Status: Active Protocol: Document 05/09/21 10:16 AW (Rec: 05/09/21 11:34 AW [id number]) Orientation Orientation/Cognition Level of Alertness Alert Orientation Name Language Function Ability No Deficits Noted Safety Awareness Understands Safety Issues Gross Range of Motion Upper Extremity ROM Assessment Within Functional Limits Lower Extremity ROM Assessment Left Impaired Strength Upper Extremity Strength Assessment Within Functional Limits Lower Extremity Strength Assessment Left Impaired Comments Strength Comments Right hip grossly 4+/5; right knee and ankle 5/5 Sensation Assessment Sensation Gross Sensation WNL M6 PT-IP Treatment Start: 05/09/21 08:31 Freq: NEEDED Status: Active Protocol: Document 05/09/21 10:16 AW (Rec: 05/09/21 11:34 AW [id number]) Physical Therapy Treatment Exercises Exercises Gluteal Sets,Quad Sets,Heel Slides Education Education Provided Weight Bearing Status,Safety Other Treatments Other Treatment Performed Pt's spouse participated in caregiver training and was able to use a gait belt as well as to provide assist with stairs as noted above. M7 PT-IP Assessment and Plan Start: 05/09/21 08:31 Freq: NEEDED Status: Active Protocol: Document 05/09/21 10:16 AW (Rec: 05/09/21 11:34 AW [id number]) PT Summary Assessment and Plan Potential Rehabilitation Potential Good Status of Condition at Evaluation Evolving Summary Impairments Pain,ROM,Strength,Balance,Bed Mobility,Transfers,Gait Assessment Summary Molly is a 50 yo woman s/p ORIF left tibia/fibula fracture. Weightbearing status is WBAT. She is independent in all regards at baseline. On assessment, she required CGA for mobility with FWW and min assist for mobility with axillary crutches. She complains of increased pain with weightbearing and uses FWW well for offloading her LLE. She completed gait and stair training with her spouse providing assist. Her spouse and son will be available at home to provide assist. Once medically stable, pt will be safe to discharge home with assist and would benefit from outpatient PT to progress her gait and strength. Goals Bed Mobility Goal Independent Transfer Goal Independent,Front Wheeled Walker Gait Goal Independent,Front Wheel Walker Gait Distance 100 Other Goals -up/down 2 steps with min assist x 2 LTG: progress gait and transfers to IND with axillary crutches Days to Meet Goals 5 Frequency of Treatment Frequency Of Treatment Twice a Day Treatment Plan Physical Therapy Treatment Plan Bed Mobility Training,Transfer Training,Gait Training, Therapeutic Exercise,Balance Retraining,Post Op Education, Discharge Planning,Hot or Cold Pack Weight Bearing Status Weight Bearing Status Weight Bear as Tolerated Allowed Weight Bearing Amount (enter % WBAT LLE or #) (%) Recommendations To Nursing Amount of Assist Needed 1 Person Assist Discharge Recommendations PT Discharge Recommendations Home with Assistance, Outpatient PT Equipment Needed for Home Before FWW Discharge Transportation Needs at Discharge Private Vehicle
--- NOTE | 2021-05-09 10:30 | PM.DS.1 ---
History of Present Illness History of Present Illness Date Patient Seen: 05/09/21 Time Patient Seen: 10:30 Date of Onset of Symptoms: 05/08/21 Chief complaint: Ankle pain Narrative: Patient is a 50-year-old female that presents after a ground level fall slipping on ice this morning while she was out of her chicken coop. She has a history of generalized anxiety. States she has a history of a heart murmur. Takes no medications. States she has been feeling palpitations couple times a week has an upcoming appointment with her doctor. No nausea vomiting fevers or chills. Did have a COVID diagnosis in December. Denies any ongoing symptoms. She is not on any hormonal control. No personal or family history of blood clots. She denies any other injuries. After the fall endorsed deformity immediate pain to the left leg from the knee to the ankle. Discharge Providers Provider Date of admission: 05/08/21 10:30 Discharge Date: 05/09/21 Primary care physician: MIRNA Archuleta Consults: 05/08/21 17:15 Consult to Discharge Planning Routine Comment: Consult to Physical Therapy Evaluate & Treat Comment: josey Honeycutt Physician Instructions: Evaluate and Treat Consult to Respiratory Therapy Evaluate & Treat Comment: Physician Instructions: Evaluate and treat Discharge provider: Kaya Pedersen MD Summary Hospital Course Discharge Diagnosis: Left tib-fib shaft fracture Hospital Course: Patient was admitted to the acute care unit. She point to surgery for a reduction and intramedullary nailing of her left tibia fracture. She was stable throughout the procedure. She was admitted to the acute care unit for postoperative pain control and compartment monitoring. She had initial doses of oral and IV pain medication overnight. She was controlled on oral medications in the morning and tolerating a p.o. diet. She does have some nausea the evening of surgery this was improved with Zofran. She worked with Physical therapy and was cleared for discharge home on the date of discharge. Status at Discharge Cognitive/behavioral status at discharge: oriented Functional status at discharge: uses cane/walker Overall status at discharge: patient is progressing back to baseline Time Spent with Patient Time spent: Less than 30 minutes Time spent discussing smoking cessation with patient: 3 to 10 minutes Exam Vital Signs (past 8 hours): - 05/09/21 03:44 05/09/21 03:47 05/09/21 07:15 Temperature 98.5 F 98.5 F Pulse Rate 97 H 85 Respiratory Rate 18 17 Blood Pressure 124/69 113/66 Pulse Oximetry 97 97 100 05/09/21 07:35 Temperature Pulse Rate Respiratory Rate Blood Pressure Pulse Oximetry 98 Oxygen Delivery Method Room Air Oxygen Flow Rate 0 Narrative Exam Narrative: Alert oriented female no acute distress. Lying in bed. at bedside. Leg wrapped in Jah wrap. Wiggles toes the slight dorsiflexion plantar flexion of the ankle limited to pain. Compartments are soft. Sensation is grossly intact to light touch and dorsalis pedis pulses palpable. Objective Labs Result Diagrams: 05/08/21 10:00 05/08/21 10:00 Labs: Laboratory Results - last 24 hr 05/08/21 05/08/21 09:50 10:00 Sodium 137 Potassium 4.0 Chloride 105 Carbon Dioxide 26 BUN 13 Creatinine 0.65 Estimated GFR > 60.0 BUN/Creatinine Ratio 20.0 Glucose 112 H Calcium 9.0 Total Bilirubin 0.4 AST 28 ALT 25 Alkaline Phosphatase 39 Total Protein 7.5 Albumin 4.2 Globulin 3.3 Albumin/Globulin Ratio 1.3 SARS-CoV-2 (PCR) Negative [facility] Medical History Anxiety disorder due to general medical condition with panic attack Atypical chest pain (~12/2016) Depression Diverticula of intestine Elevated liver enzymes Herpes Hypercholesterolemia Murmur Surgical History History of bilateral inguinal hernia repair History of cholecystectomy (07/04/17) History of herniorrhaphy History of third molar tooth extraction Status post endoscopy Social History marital status: household members: spouse and family occupational status: employed Smoking Status: Current some day smoker alcohol intake: current substance use type: does not use Discharge Assessment & Plan Assessment and Plan Assessment: Postop day 1 left tibial shaft fracture intramedullary nail doing well. Pain controlled. Plan of Treatment: Discharge home after physical therapy. Weightbear as tolerated with expected use of ambulatory aids, crutches, walker for the next 2-6 weeks. Ankle and knee range of motion encouraged. Will do Xarelto for DVT prophylaxis postop Medications sent to [facility] pharmacy: Zofran, oxycodone, Colace, Tylenol, ibuprofen and Xarelto Follow-up in orthopedic clinic in 10-14 days for staple removal Discharge Plan Discharge Plan Patient Disposition: Home Discharge orders & Medications Prescriptions: New ondansetron HCl [Zofran] 4 mg tablet 4 mg PO Q8H PRN (Reason: nausea and vomiting) Qty: 7 1RF oxycodone 5 mg tablet 5 - 10 mg PO Q4H PRN (Reason: pain) Qty: 42 0RF Rx Instructions: postop exempt docusate sodium [Colace] 100 mg capsule 100 mg PO BID Qty: 20 0RF acetaminophen 500 mg capsule 500 mg PO Q6H PRN (Reason: pain) Qty: 60 0RF ibuprofen 800 mg tablet 800 mg PO Q8H PRN (Reason: pain) Qty: 30 0RF Xarelto 10 mg tablet 10 mg PO DAILY Qty: 11 0RF Continued efinaconazole 10 % solution with applicator 1 applic topical BEDTIME Qty: 8 2RF Systane Balance 0.6 % drops 1 drp ophthalmic (eye) BID PRN (Reason: dry eye(s)) Qty: 10 0RF Systane Nighttime 94-3 % ointment 1 applic ophthalmic (eye) BEDTIME Qty: 3.5 3RF valacyclovir 500 mg tablet 500 mg PO BID PRN (Reason: Cold Sores) Qty: 90 0RF hydroxyzine HCl 25 mg tablet 25 mg PO QID PRN (Reason: anxiety) Qty: 30 3RF Rx Instructions: Take 1 tablet up to 4x/day for anxiety Follow up/Referrals: Susan Gonzalez ARNP [Primary Care Provider] - Diet/Activity/Treatments Diet: Diet as Tolerated Other treatments: At-Home Instructions - Dr. Pedersen Surgery: Intramedullary nail tibia fracture Cast/Splint/Dressing Care Instructions 1) Keep cast/dressing clean and dry. 2) May bathe - but dressing must remain dry. 3) may unwrap Jah wrap, keep underlying gauze dressings in place, may reinforce if needed 4) Keep your affected extremity elevated - after surgery to minimize swelling. 5) You may ice your extremity, being careful to prevent melting ice from saturating into the splint/cast. 6) you are encouraged to move your ankle and knee Activity No heavy lifting greater than 10 pounds. No [address] while on narcotic pain medication. Do not get your dressing/cast/splint wet! You may weight bear as tolerated on your operative extremity Use crutches or a walker for ambulation. No driving until you are otherwise instructed by your physician. This will be addressed at your first follow-up appointment. Discharge Pain Medications You will be given a prescription for pain medication. You should start taking this the same day after your surgery. Wean off as tolerated. Do not wait to take the pain medication until the pain is severe, as it will be difficult to catch up once this occurs. The pain medication usually reaches its full effect ~1 hour after ingesting. If you have been sent home on Colace, this medication should be taken until you are off all narcotic (i.e. Vicodin, Percocet, Oxycodone, etc) pain medications, to prevent constipation. You may also obtain this or another stool softener over the counter to prevent or alleviate constipation. Percocet or Vicodin have Tylenol in their ingredient lists. You must be careful not to exceed 3,000mg (3 grams) of Tylenol, from all sources, within a single 24-hr period. This means that you may not take more than 10 pills within a 24-hr period. Do NOT take Regular or Extra Strength Tylenol when taking your Percocet or Vicodin medications. -IF you have been given a Toradol/ketorolac prescription, this is a very strong anti-inflammatory. Do not take [id number]-[id number]-[id number] anti-inflammatories (ibuprofen, Aleve, Advil, Motrin) while taking the Toradol/ketorolac. Once you are finished with this prescription, then you can resume whsu-yql-fzhymwz anti-inflammatories. You can still take your narcotic pain medication and Tylenol while taking the Toradol/ketorolac. -Some common side effects of the narcotic pain medications (Percocet, Oxycodone, Vicodin, etc.) include nausea and itching. Benadryl is a great over the counter medication that helps calm your stomach, decreases your anxiety levels, and minimizes the itching. You can easily purchase this at your local pharmacy as an eybo-tkn-wpqyrbk medication. Please abide by the instructions as printed on the bottle. If your nausea persists, make sure to take small amounts of crackers or other bottom bleacher foods. Follow-Up/Emergency Contacts Please call for an appointment in either [place] or [place], if one has not been scheduled. Follow up 2 weeks after surgery. [phone] Contact the office if you have any of the following: ? Painful swelling or numbness ? Unrelenting pain ? Fever (over 101?- it is normal to have a low grade fever for the first day or two following surgery) or chills ? Redness around the incisions ? Color changes ? Continuous bleeding or drainage from the incision (a small amount is expected) ? Excessive nausea or vomiting ? Difficulty breathing If you have an emergency that requires immediate attention such as shortness of breath or chest pain, call 911 or proceed to the nearest emergency room. Blood Clot Prophylaxis You will need to complete a total (11 days) course of xarelto after surgery, to minimize the risk of blood clots following surgery. Commence foot and ankle. knee pumps and movement with the nonoperative leg to keep your blood moving and help prevent clots. You can also obtain compression socks of antiembolism hose (JOANNE) hose from the drug store to wear on the nonoperative leg and also on the operative leg once the splint or cast is removed. Adjust your position or get up onto your crutches every hour or so just to move around. Vitamins. Also recommend taking calcium and vitamin-D to aid with bone healing. Recommend 1000 mg of calcium daily and 2000 units of vitamin-D daily for the next 2 months while healing Pain Medications: It is the policy of [facility] that narcotic medications will only be refilled during office hours. Additionally, due to the alarming rate of narcotic pain medication abuse/dependence, it has become necessary for physician practices to closely manage patient use of prescription narcotic pain relievers, such as Vicodin ([place]), Percocet, and Oxycodone products. Narcotic pain management in the postoperative period may not exceed 6 weeks. If narcotic pain management is required beyond 90 days, then a referral to a Chronic Pain Specialist will be made. If a request for a medication prescription has been made, the physician must review your chart prior to authorizing the request. Please be patient with office staff. If you call during patient hours, your call may not be returned until the end of the day. Dr. Kaya Pedersen [address] [email or web address] Skin/Wound/Dressing Care Report to your healthcare provider any signs of infection, such as:: chills, fever, night sweats, increased pain, unusual drainage and unusual redness Visit Report/Discharge Packet Instructions: DI for Open Reduction Internal Fixation Surgery Discharge Data Primary Care Provider: Susan Gonzalez VTE Deep Vein Thrombosis/Pulmonary Embolism Present on Admission: No
--- NOTE | 2021-05-09 12:11 | PC.NURSE ---
Discharge Note Patient A&O, VSS, RA. No complaints of pain/discomfort. Discharge instructions reviewed with patient, all questions/concerns addressed. PIV discontinued. All belongings packed and given to patient along with discharge packet. Patient reminded to picker operator prescriptions at preferred pharmacy. Patient taken down via wheelchair to POV.
== END 2021-05-09 12:10 | disposition home or self-care (01) | DRG 494 ==
LOC: ED 09:12 → AC 10:47
PROVIDERS: Admitting Provider Orthopaedic Surgery Foot and Ankle Surgery; Emergency Provider Emergency Medicine; PCP Nurse Practitioner; Referring Provider Emergency Medicine; Visit Provider Orthopaedic Surgery Foot and Ankle Surgery
PROC: (CPT 27759; principal; 2021-05-08 12:30)
DX: S82.242A Displaced spiral fracture of shaft of left tibia, initial encounter for closed fracture (principal); S82.832A Other fracture of upper and lower end of left fibula, initial encounter for closed fracture; W00.0XXA Fall on same level due to ice and snow, initial encounter; Y92.72 Chicken coop as the place of occurrence of the external cause; F17.200 Nicotine dependence, unspecified, uncomplicated; Z20.822 Contact with and (suspected) exposure to COVID-19
CPT/HCPCS: 27759; 73560; 73590; 73600; 76000; 80053; 85025; 87635; 93005; 94760; 96361; 96372; 96374; 96375; 96376; 97116; 97161; 99284; C9803; G0378; J0171; J0330; J0690; J1100; J1170; J1650; J1885; J2060; J2175; J2405; J2704; J3010

== ENCOUNTER 2021-05-11 17:24 | Emergency (ER) | payer OTHER, SELFPAY ==
[2021-05-08 18:49] VITALS: BMI 32.5
[2021-05-11 17:25] VITALS: BP 134/92; PULSE 84; RESP 15; TEMP 37.2; O2SAT 96; BMI 30.7
--- NOTE | 2021-05-11 17:35 | DI.CT.S_ITS ---
PROCEDURE: CT HEAD/BRAIN WO CON INDICATIONS: slurred speech resolved TECHNIQUE: Noncontrast 4.5 mm thick angled axial sections acquired from the foramen magnum to the vertex, with coronal and sagittal reformats. For radiation dose reduction, the following was used: automated exposure control, adjustment of mA and/or kV according to patient size. COMPARISON: None. FINDINGS: Image quality: Excellent. CSF spaces: Basal cisterns are patent. No extra-axial fluid collections. Ventricles are normal in size and shape. Brain: No midline shift. No intracranial masses or hemorrhage. Zarate-white matter interface is normal. Skull and face: Calvarium and visualized facial bones are intact, without suspicious lesions. Sinuses: Visualized sinuses and mastoids are clear. IMPRESSION: No acute intracranial disease process. Dictated by: Ling Alvares MD, PhD on 05/11/2021 at 17:49 Approved by: Ling Alvares MD, PhD on 05/11/2021 at 17:50
--- NOTE | 2021-05-11 17:36 | DI.RAD.S_ITS ---
PROCEDURE: XR CHEST 1V INDICATIONS: slurred speech TECHNIQUE: One view of the chest was acquired. COMPARISON: [facility], CR, XR CHEST 2V, 01/05/2021, 11:08. FINDINGS: Surgical changes and devices: None. Lungs and pleura: Lungs are clear. No pleural effusions or pneumothorax. Mediastinum: Mediastinal contours appear normal. Heart size is normal. Bones and chest wall: No suspicious bony lesions. Overlying soft tissues appear unremarkable. IMPRESSION: No acute cardiopulmonary disease process. Dictated by: Ling Alvares MD, PhD on 05/11/2021 at 17:48 Approved by: Ling Alvares MD, PhD on 05/11/2021 at 17:49
[2021-05-11 17:37] VITALS: BP 134/92; PULSE 79; RESP 17; O2SAT 95
[2021-05-11 17:58] LABS: Add Manual Diff / Slide Review NO; Basophils Absolute Auto 0 /uL (0-100); Basophils Percent Auto 0.3 % (0-2); Eosinophils Absolute Auto 100 /uL (0-450); Eosinophils Percent Auto 1.3 % (2-4); Hemoglobin 12.6 g/dL (12.0-16.0); Lymphocytes Absolute Auto 2300 /uL (1100-4500); Lymphocytes Percent Auto 28.4 % (25-40); Mean Corpuscular HGB Conc 34.1 % (30-36); Mean Corpuscular Hemoglobin 28.9 PG (26-34); Mean Corpuscular Volume 84.9 fL (80-100); Monocytes Absolute Auto 400 /uL (0-900); Monocytes Percent Auto 5.2 % (3-14); Neutrophils Absolute Auto 5200 /uL (1500-7000); Neutrophils Percent Auto 64.8 % (50-75); Platelet Count 297 X10^3/uL (150-400); Red Blood Cell Count 4.36 X10^6/uL (4.0-5.2); Red Cell Distribution Width 13.1 % (11.6-14.8); White Blood Cell Count 8.1 X10^3/uL (4.5-11.0)
[2021-05-11 18:00] VITALS: PULSE 76; RESP 23; O2SAT 94
[2021-05-11 18:18] LABS: INR 1.5 (0.9-1.3); Prothrombin Time 17.1 SECONDS (10.1-12.7)
[2021-05-11 18:20] LABS: PTT Partial Thromboplastin Tim 40 SECONDS (26.4-36.2)
[2021-05-11 18:21] LABS: Alanine Aminotransferase 209 IU/L (<35); Albumin Globulin Ratio 1.3 (1.0-2.8); Alkaline Phosphatase 75 U/L (38-126); Aspartate Aminotransferase 172 IU/L (14-36); BUN Creatinine Ratio 15.7 (6-22); Bilirubin Total 0.5 mg/dL (0.2-1.3); Blood Urea Nitrogen 11 mg/dL (7-17); Calcium 9.5 mg/dL (8.4-10.2); Carbon Dioxide 29 mmol/L (22-32); Chloride 102 mmol/L (98-107); Creatine Kinase 104 U/L (30-135); Estimated Glomerular Filt Rate > 60.0 mL/min (>60); Globulin 3.2 g/dL (1.7-4.1); Glucose 93 mg/dL (70-100); HEMOLYSIS < 15 (0-50); Lipase 42 U/L (23-300); Sodium 135 mmol/L (137-145); Total Protein 7.2 g/dL (6.3-8.2)
[2021-05-11 18:33] LABS: Troponin I < 0.012 ng/mL (0.01-0.034)
[2021-05-11 18:37] LABS: CKMB % Relative Index 2.4 % (1.5-5.0)
--- NOTE | 2021-05-11 18:52 | ED.NEUROSD ---
HPI - Neuro Symptoms/Deficit General Chief Complaint: Neuro Symptoms/Deficit Stated Complaint: Slurred Speech this AM Time Seen by Provider: 05/11/21 17:35 Source: patient Mode of arrival: EMS History of Present Illness HPI Narrative: Patient is a 50-year-old female who was brought mass for evaluation of slurred speech this morning. Approximately 4 days ago patient at slipped on Jack morning in this no. Sustained a fracture to her left leg. Had surgery that same day. Subsequently discharged. Has been on pain medications since then. Has been weaning down on the pain medication per report. States that this morning she had an episode where she felt like her little toe on her left foot was tingling. She also noticed some tingling under the left side of her lower lip. She also noticed that she was having problems speaking. She admitted that she felt like she was slurring her words. The tingling under her lip and the word slurring issues has improved. She still has some tingling on her left little toe. She does not have a splint however has a compression bandage. They changed the compression bandage per recommendation from orthopedics is a thought maybe that was what was causing the tingling. Unsure exactly how long the symptoms lasted but it seemed to be longer than 10 minutes. Patient is on anticoagulation. On Anticoagulants: Yes Related Data Previous Rx's Medication Instructions Recorded hydroxyzine HCl 25 mg tablet 25 mg PO QID PRN #30 tab 02/28/19 propylene glycol 0.6 % eye drops 1 drp OPHTHALMIC (EYE) BID PRN #10 12/11/20 (Systane Balance) ml valacyclovir 500 mg tablet 500 mg PO BID PRN #90 tab 12/11/20 white petrolatum-mineral oil 94 1 applic OPHTHALMIC (EYE) BEDTIME 12/11/20 %-3 % eye ointment (Systane #3.5 g Nighttime) efinaconazole 10 % topical 1 applic TOPICAL BEDTIME #8 ml 01/04/21 solution with applicator acetaminophen 500 mg capsule 500 mg PO Q6H PRN #60 cap 05/09/21 docusate sodium 100 mg capsule 100 mg PO BID #20 cap 05/09/21 (Colace) ibuprofen 800 mg tablet 800 mg PO Q8H PRN #30 tab 05/09/21 ondansetron HCl 4 mg tablet 4 mg PO Q8H PRN #7 tab 05/09/21 (Zofran) oxycodone 5 mg tablet 5 - 10 mg PO Q4H PRN #42 tab 05/09/21 rivaroxaban 10 mg tablet (Xarelto) 10 mg PO DAILY #11 tab 05/09/21 Allergies Allergy/AdvReac Type Severity Reaction Status Date / Time No Known Drug Allergies Allergy Verified 05/11/21 17:32 Review of Systems Constitutional Constitutional: Denies fever(s) and Denies headache(s) Eyes Eyes: Denies blurry vision and Denies change in vision ENT Ears, Nose, Mouth, and Throat: Reports system reviewed and no additional complaints, except as documented, Reports as per HPI and Denies headache(s) Cardiovascular Cardiovascular: Denies chest pain and Denies dyspnea Respiratory Respiratory: Denies cough and Denies dyspnea Gastrointestinal Gastrointestinal: Reports system reviewed and no additional complaints, except as documented Musculoskeletal Musculoskeletal: Reports system reviewed and no additional complaints, except as documented and Reports as per HPI Integumentary/Breasts Skin/Breast: Reports system reviewed and no additional complaints, except as documented and Reports as per HPI Neurologic Neurologic: Denies headache(s) Hematologic/Lymphatic On Anticoagulants: Yes Allergic/Immunologic Allergic/Immunologic: Reports system reviewed and no additional complaints, except as documented Patient History Medical History Anxiety disorder due to general medical condition with panic attack Atypical chest pain (~12/2016) Depression Diverticula of intestine Elevated liver enzymes Herpes Hypercholesterolemia Murmur Surgical History History of bilateral inguinal hernia repair History of cholecystectomy (07/04/17) History of herniorrhaphy History of third molar tooth extraction Status post endoscopy Social History marital status: household members: spouse and family occupational status: employed Smoking Status: Current some day smoker alcohol intake: current substance use type: does not use Smoking Status: Current some day smoker alcohol intake frequency: a few times a week Substance Use Type: does not use Exam Initial Vital Signs Initial Vital Signs: Vital Signs Temperature 99.0 F 05/11/21 17:25 Pulse Rate 84 05/11/21 17:25 Respiratory Rate 15 05/11/21 17:25 Blood Pressure 134/92 H 05/11/21 17:25 Pulse Oximetry 96 05/11/21 17:25 Const General: cooperative, healthy appearing and comfortable HENMT Head: normal to inspection and normocephalic Eyes Pupils: PERRL EOM: EOM intact bilaterally Resp Effort & Inspection: normal respiratory effort Auscultation: clear to auscultation bilaterally Cardio Rate: regular rate Rhythm: regular rhythm GI Inspection: normal to inspection Skin General: no rashes or lesions noted Neuro General: patient alert, patient awake, patient oriented x3 and moves all extremities Cranial Nerves: CN's II-XI intact bilaterally Cognition: normal cognition Speech: speech normal Sensory Exam: other (Decreased sensation to light touch left little toe) Extrem General: normal to inspection and capillary refill normal Psych Appearance: grossly normal and well kempt Scores ABCD2 Age >= 60 years: no Initial BP. Either SBP >= 140 or DBP >= 90.: no Clinical features of the TIA: speech disturbance without weakness Duration of symptoms: 10-59 minutes History of diabetes: no ABCD2 Score: 2 GCS [place] coma scale eye opening: Spontaneous [place] coma scale verbal response: Orientated Sparkle coma scale motor response: Obey commands Sparkle coma scale total score: 15 Course Orders Ordered: ED Orders 05/11/21 17:35 CT head/brain wo con Stat Complete Blood Count AUTO DIFF Stat Comprehensive Metabolic Panel Stat Lipase Stat Partial Thromboplastin Time Stat Prothrombin Time INR Stat Troponin & CK Cardiac Panel Stat 05/11/21 17:36 XR chest 1V Stat EKG-12 Lead Stat Vital Signs Vital signs: Vital Signs - 8 hr 05/11/21 17:25 05/11/21 17:37 Temperature 99.0 F Pulse Rate 84 79 Respiratory Rate 15 17 Blood Pressure 134/92 H 134/92 H Pulse Oximetry 96 95 MDM - Neuro Symptoms/Deficit Lab Data Attestation: I reviewed the patient's lab results. Result diagrams: 05/11/21 17:35 05/11/21 17:35 Labs: Lab Results 05/11/21 05/11/21 05/11/21 Range/Units 17:35 17:35 17:35 WBC 8.1 (4.5-11.0) X10^3/uL RBC 4.36 (4.0-5.2) X10^6/uL Hgb 12.6 (12.0-16.0) g/dL Hct 37.0 (36-46) % MCV 84.9 (80-100) fL MCH 28.9 (26-34) PG MCHC 34.1 (30-36) % RDW 13.1 (11.6-14.8) % Plt Count 297 (150-400) X10^3/uL Neut % (Auto) 64.8 (50-75) % Lymph % (Auto) 28.4 (25-40) % Mckenzie % (Auto) 5.2 (3-14) % Eos % (Auto) 1.3 L (2-4) % Baso % (Auto) 0.3 (0-2) % Neut # (Auto) 5200 (6448-4182) /uL Lymph # (Auto) 2300 (2849-6392) /uL Mckenzie # (Auto) 400 (0-900) /uL Eos # (Auto) 100 (0-450) /uL Baso # (Auto) 0 (0-100) /uL PT 17.1 H (10.1-12.7) SECONDS INR 1.5 H (0.9-1.3) APTT 40 H (26.4-36.2) SECONDS Sodium 135 L (137-145) mmol/L Potassium 4.0 (3.4-5.1) mmol/L Chloride 102 (98-107) mmol/L Carbon Dioxide 29 (22-32) mmol/L BUN 11 (7-17) mg/dL Creatinine 0.70 (0.52-1.04) mg/dL Estimated GFR > 60.0 (>60) mL/min BUN/Creatinine Ratio 15.7 (6-22) Glucose 93 (70-100) mg/dL Calcium 9.5 (8.4-10.2) mg/dL Total Bilirubin 0.5 (0.2-1.3) mg/dL AST 172 H (14-36) IU/L ALT 209 H (<35) IU/L Alkaline Phosphatase 75 (38-126) U/L Total Creatine Kinase 104 (30-135) U/L CK-MB (CK-2) 2.50 H (<2.37) ng/mL CK-MB (CK-2) Rel Index 2.4 (1.5-5.0) % Troponin I < 0.012 (0.01-0.034) ng/mL Total Protein 7.2 (6.3-8.2) g/dL Albumin 4.0 (3.5-5.0) g/dL Globulin 3.2 (1.7-4.1) g/dL Albumin/Globulin Ratio 1.3 (1.0-2.8) Lipase 42 (23-300) U/L Imaging Data CT scan - head: Radiologist's Impression: [address] [address] [address] Scan Report Signed Patient: Molly Rosas MR#: [id number] : 1970 Acct:[id number] Age/Sex: 50 / F Date of Service: 05/11/21 Loc: ED Accession Number: [id number] ?? Procedure: CT head/brain wo con Ordering Provider: Maryan Frias D.O. PROCEDURE:? CT HEAD/BRAIN WO CON ? INDICATIONS:? slurred speech resolved ? TECHNIQUE:? Noncontrast 4.5 mm thick angled axial sections acquired from the foramen magnum to the vertex, with coronal and sagittal reformats.? For radiation dose reduction, the following was used:? automated exposure control, adjustment of mA and/or kV according to patient size.? ? COMPARISON:? None. ? FINDINGS:? Image quality:? Excellent.? ? CSF spaces:? Basal cisterns are patent.? No extra-axial fluid collections.? Ventricles are normal in size and shape.? ? Brain:? No midline shift.? No intracranial masses or hemorrhage.? Zarate-white matter interface is normal.? ? Skull and face:? Calvarium and visualized facial bones are intact, without suspicious lesions.? ? Sinuses:? Visualized sinuses and mastoids are clear.? ? IMPRESSION:? No acute intracranial disease process. ? ? Dictated by: Ling Alvares MD, PhD on 05/11/2021 at 17:49 ? ? Approved by: Ling Alvares MD, PhD on 05/11/2021 at 17:50?? Chest x-ray: Radiologist's Impression: [address] [address] XRay Report Signed Patient: Molly Rosas MR#: [id number] : 1970 Acct:[id number] Age/Sex: 50 / F Date of Service: 05/11/21 Loc: ED Accession Number: [id number] ?? Procedure: XR chest 1V Ordering Provider: Maryan Frias D.O. PROCEDURE:? XR CHEST 1V ? INDICATIONS:? slurred speech ? TECHNIQUE:? One view of the chest was acquired.? ? COMPARISON:? [facility], CR, XR CHEST 2V, 01/05/2021, 11:08. ? FINDINGS:? ? Surgical changes and devices:? None.? ? Lungs and pleura:? Lungs are clear.? No pleural effusions or pneumothorax.? ? Mediastinum:? Mediastinal contours appear normal.? Heart size is normal.? ? Bones and chest wall:? No suspicious bony lesions.? Overlying soft tissues appear unremarkable.? ? IMPRESSION:? No acute cardiopulmonary disease process. ? ? Dictated by: Ling Alvares MD, PhD on 05/11/2021 at 17:48 ? ? Approved by: Ling Alvares MD, PhD on 05/11/2021 at 17:49?? ECG Data Attestation: I personally reviewed and interpreted this ECG as follows: Interpretation: Sinus rhythm Ventricular rate is 78 Normal axis Normal QRS Normal QTC No ST T wave changes MDM Narrative Medical decision making narrative: Patient has a unremarkable neurologic exam now. She does have tingling to light touch along her left little toe. She is not having any speech issues currently. We did discuss the possibility of TIA versus is medication causing the symptoms. Patient has a low risk ABCD2 score. We discussed being admitted to the hospital for further evaluation versus discharge and following up with a primary provider. Patient would like to follow-up with her primary provider. She will continue with all of her medications. She is going to try to decrease the amount of oxycodone she is taking. She is given strict return precautions. She expressed understanding and agreed. Discharge Plan Departure Patient Disposition: Home Clinical Impression: Slurring of speech, Paresthesias Instructions: DI for Numbness/Tingling Activity Restrictions/Additional Instructions: Continue to take your medications like we discussed. Contact your primary doctor for follow-up to discuss further workup of your symptoms today. If her symptoms return please return to the emergency department for further evaluation. Prescriptions: No Action efinaconazole 10 % solution with applicator 1 applic topical BEDTIME Qty: 8 2RF Systane Balance 0.6 % drops 1 drp ophthalmic (eye) BID PRN (Reason: dry eye(s)) Qty: 10 0RF Systane Nighttime 94-3 % ointment 1 applic ophthalmic (eye) BEDTIME Qty: 3.5 3RF valacyclovir 500 mg tablet 500 mg PO BID PRN (Reason: Cold Sores) Qty: 90 0RF hydroxyzine HCl 25 mg tablet 25 mg PO QID PRN (Reason: anxiety) Qty: 30 3RF Rx Instructions: Take 1 tablet up to 4x/day for anxiety ondansetron HCl [Zofran] 4 mg tablet 4 mg PO Q8H PRN (Reason: nausea and vomiting) Qty: 7 1RF oxycodone 5 mg tablet 5 - 10 mg PO Q4H PRN (Reason: pain) Qty: 42 0RF Rx Instructions: postop exempt docusate sodium [Colace] 100 mg capsule 100 mg PO BID Qty: 20 0RF acetaminophen 500 mg capsule 500 mg PO Q6H PRN (Reason: pain) Qty: 60 0RF ibuprofen 800 mg tablet 800 mg PO Q8H PRN (Reason: pain) Qty: 30 0RF Xarelto 10 mg tablet 10 mg PO DAILY Qty: 11 0RF Referrals: Susan Gonzalez ARNP [Primary Care Provider] -
[2021-05-11 19:15] VITALS: BP 127/70
== END 2021-05-11 19:16 | disposition home or self-care (01) ==
PROVIDERS: Emergency Medicine; Emergency Provider Emergency Medicine; PCP Nurse Practitioner
DX: R47.81 Slurred speech (principal); R20.2 Paresthesia of skin; R03.0 Elevated blood-pressure reading, without diagnosis of hypertension; Z79.01 Long term (current) use of anticoagulants
CPT/HCPCS: 36415; 70450; 71045; 80053; 82550; 82553; 83690; 84484; 85025; 85610; 85730; 93005; 99284

== ENCOUNTER → 2021-07-12 09:47 | Outpatient (CLI) | payer OTHER, SELFPAY ==
[2021-05-08 18:49] VITALS: BMI 32.5
[2021-07-12 10:35] LABS: COVID19 -Nasal RAPID Negative (Negative)
== END ==
PROVIDERS: PCP Nurse Practitioner; Referring Provider Surgery; Visit Provider Surgery
DX: Z01.812 Encounter for preprocedural laboratory examination (principal); Z20.822 Contact with and (suspected) exposure to COVID-19
CPT/HCPCS: 87635; C9803

== ENCOUNTER 2021-07-13 09:07 | Day surgery (SDC) | payer OTHER, SELFPAY ==
[2021-05-08 18:49] VITALS: BMI 32.5
--- NOTE | 2021-07-13 | PATH_ITS ---
[facility] Accession Number: [id number] . 01 Material submitted: . rectum - RECTAL POLYP . 02 Diagnosis: A. Rectal Polyp, Polypectomy: Hyperplastic polyp. [facility] 07/16/2021 1541 Local . 02 Electronically signed: . Latricia Powell MD, Pathologist NPI- [id number] . 01 Gross description: . RECTAL POLYP: Received in formalin are 3 fragment(s) of campos, soft tissue measuring 0.7 x 0.1 x 0.1 cm to 0.2 x 0.2 x 0.1 cm submitted entirely in 1 cassette(s) /CPE 07/15/2021 1411 Local . 02 Pathologist provided ICD-10: K63.5 . 02 CPT . 423708 Specimen Comment: A courtesy copy of this report has been sent to [phone] Performed at: 01 [facility] [address] [facility], [place], [place] [id number] MD Buster Mo MD Phone: [phone] Performed at: [address] [facility] [address] [place], [place] [id number] MD Nikki Good MD Phone: [phone]
[2021-07-13] MEDS: LACTATED RINGERS 1,000 ML 200 ML IV (09:13)
[2021-07-13 09:16] VITALS: BP 119/77; PULSE 100; RESP 18; TEMP 36.2; O2SAT 97; BMI 32.5
--- NOTE | 2021-07-13 10:16 | PM.HP.1 ---
History of Present Illness History of Present Illness Date Patient Seen: 07/13/21 Time Patient Seen: 10:16 Chief complaint: SDC Narrative: The patient presents for colorectal sreening. They have never had any previous examination for such. No personal or family history of colon cancer. On further history denies any recent gastrointestinal symptoms. No nausea, vomiting, abdominal pain, loss of appetite, unexplained weight loss, change in bowel habits, diarrhea, constipation, melena, hematochezia, or bright red blood per rectum. Patient History Medical History Anxiety disorder due to general medical condition with panic attack Atypical chest pain (~12/2016) Depression Diverticula of intestine Elevated liver enzymes Herpes Hypercholesterolemia Murmur Surgical History History of bilateral inguinal hernia repair History of cholecystectomy (07/04/17) History of herniorrhaphy History of third molar tooth extraction Status post endoscopy Family & Social History Social History: household members spouse,family Tobacco & Substance use: Tobacco type cigarettes Smoking Status Current some day smoker alcohol intake current alcohol intake frequency a few times a week Substance Use Type does not use Meds Home Medications and Allergies Home Medications Medication Instructions Recorded Confirmed Type valacyclovir 500 mg tablet 500 mg PO BID PRN #90 tab 12/11/20 07/13/21 Rx ibuprofen 800 mg tablet 800 mg PO Q8H PRN #30 tab 05/09/21 07/13/21 Rx Allergies Allergy/AdvReac Type Severity Reaction Status Date / Time No Known Drug Allergies Allergy Verified 07/13/21 08:22 Exam Vital Signs (past 8 hours): - 07/13/21 09:16 Temperature 97.2 F L Pulse Rate 100 H Respiratory Rate 18 Blood Pressure 119/77 Pulse Oximetry 97 Oxygen Delivery Method Room Air Narrative Exam Narrative: GENERAL: Adult female in no apparent distress HEENT: No scleral icterus CV: Regular rate, no peripheral edema LUNGS: No increased work of breathing. Patient speaks in full sentences without oxygen support. ABDOMEN: Soft, non-tender, non-distended NEURO: Nonfocal, normal strength throughout, SKIN: Warm and dry Assessment & Plan Assessment and plan (1) Screening for colon cancer: Status: Acute Assessment & Plan narrative: The patient requires colorectal screening and colonoscopy is recommended. Technical details were discussed. Risks, benefits, alternatives explained. Risks including but not limited to myocardial infarction, aspiration, bleeding, pain, missed lesion, incomplete examination, need for further radiographic studies, colonic perforation, and need for major abdominal surgery were discussed. All questions were answered to their satisfaction, and they are in agreement with this plan. Time Spent With Patient Critical Care time: I spent a total of [] minutes of critical care time on this patient's care today; this time is exclusive of procedural time.
--- NOTE | 2021-07-13 10:28 | SUR.OPER ---
PEDIATRIC SCOPE USED
--- NOTE | 2021-07-13 10:31 | SUR.OPER ---
MEDICATIONS TITRATED IV.. PATIENT TOLERATED FAIRLY WELL. UNCOMFORTABLE THROUGH DIVERTICULAR AREAS
[2021-07-13] MEDS: fentaNYL 250 MCG/5 ML INJ IV (10:36)
[2021-07-13] MEDS: MIDAZOLAM 5 MG/5 ML VIAL IV (10:37)
--- NOTE | 2021-07-13 10:40 | PM.OP.COLON ---
Operative Date/Time/Diagnoses Date of procedure: 07/13/21 Time of procedure: 10:40 Pre-op diagnosis: Screening colonoscopy Post-op diagnosis: same Procedure & Clinicians Study performed: Colonoscopy Same procedure as scheduled: Yes Indications: Screening Surgeon: Delfino Gates Procedure Notes Procedure in detail: Medications: Conscious sedation using 6mg IV midazolam and 200mcg IV of fentanyl The history and physical was performed/updated and the patient is ASA class is 2. The procedure was discussed in detail with the patient. Potential risks complications including infection, bleeding, missed diagnosis, perforation, need for surgery, and were explained. Their questions were answered and informed consent was obtained. Patient was brought to the procedure room and placed standard monitoring equipment. The patient's vital signs were monitored continuously throughout the entire procedure. Prior to starting time-out was performed. The patient was placed in the left lateral recumbent position. Procedural sedation was administered. Examination began with a thorough inspection of the perianal area there was no evidence of fissures, fistulae, external hemorrhoids or cutaneous malignancy. The colonoscopy scope was then placed into the anal canal and was advanced to the cecum, which was identified by the ileocecal valve, the appendiceal orifice and the confluence of the taenia. The scope was then slowly withdrawn examining colon thoroughly in all directions, irrigating it of any residual stool. FINDINGS 1. Rectal polyp 5 mm removed with biopsy forceps. 2. Mild sigmoid diverticulosis The patient tolerated the procedure well. They will be discharged once criteria are met. The prep was of good/excellent quality. The withdrawl time was 6 minutes. The sedation time was 20 minutes. Specimen(s): other (Rectal polyp) Complications: none Impression: Colonic polyp Post-procedure Recommendations: Colonoscopy in 5 years Disposition: same day surgery
[2021-07-13 10:44] VITALS: BP 114/71; PULSE 75; RESP 12; TEMP 36.1; O2SAT 96
[2021-07-13 10:49] VITALS: BP 105/69; PULSE 77; RESP 12; O2SAT 96
[2021-07-13 10:54] VITALS: BP 112/65; PULSE 71; RESP 12; O2SAT 97
[2021-07-13 10:59] VITALS: BP 110/74; PULSE 87; RESP 13; TEMP 36.1; O2SAT 97
[2021-07-13 11:10] VITALS: BP 110/88; PULSE 70; RESP 13; O2SAT 97
== END 2021-07-13 11:18 | disposition home or self-care (01) ==
PROVIDERS: PCP Nurse Practitioner; Referring Provider Surgery; Visit Provider Surgery
PROC: 0DJD8ZZ Inspection of Lower Intestinal Tract, Via Natural or Artificial Opening Endoscopic (ICD-10-PCS; CPT 45378; principal; 2021-07-13 10:00)
DX: Z12.11 Encounter for screening for malignant neoplasm of colon (principal); F41.9 Anxiety disorder, unspecified; F17.210 Nicotine dependence, cigarettes, uncomplicated; K57.30 Diverticulosis of large intestine without perforation or abscess without bleeding; K63.5 Polyp of colon
CPT/HCPCS: 45380; 99152; J2250; J3010

== ENCOUNTER 2021-08-03 23:22 | Emergency (ER) | payer OTHER, SELFPAY ==
[2021-05-08 18:49] VITALS: BMI 32.5
[2021-08-03 23:25] VITALS: BP 137/82; PULSE 76; RESP 18; TEMP 36.6; O2SAT 99; BMI 32.5
--- NOTE | 2021-08-03 23:27 | DI.RAD.S_ITS ---
PROCEDURE: XR CHEST 1V INDICATIONS: chest pain TECHNIQUE: One view of the chest was acquired. COMPARISON: [facility], CR, XR CHEST 1V, 05/11/2021, 17:36. FINDINGS: Surgical changes and devices: None. Lungs and pleura: Lungs are clear. No pleural effusions or pneumothorax. Mediastinum: Mediastinal contours appear normal. Heart size is normal. Bones and chest wall: No suspicious bony lesions. Overlying soft tissues appear unremarkable. IMPRESSION: 1. No acute cardiopulmonary disease. Dictated by: Buster Marie M.D. on 08/04/2021 at 0:40 Approved by: Buster Marie M.D. on 08/04/2021 at 0:40
[2021-08-03 23:28] VITALS: PULSE 77; RESP 18; O2SAT 99
[2021-08-03 23:29] VITALS: BP 125/75; PULSE 75; RESP 15; O2SAT 99
[2021-08-03 23:30] VITALS: BP 122/71; PULSE 79; RESP 13; O2SAT 99
[2021-08-03 23:58] LABS: Add Manual Diff / Slide Review NO; Basophils Absolute Auto 100 /uL (0-100); Basophils Percent Auto 0.7 % (0-2); Eosinophils Absolute Auto 200 /uL (0-450); Eosinophils Percent Auto 1.5 % (2-4); Hematocrit 39.4 % (36-46); Hemoglobin 13.4 g/dL (12.0-16.0); Lymphocytes Absolute Auto 3500 /uL (1100-4500); Lymphocytes Percent Auto 34.7 % (25-40); Mean Corpuscular HGB Conc 34.1 % (30-36); Mean Corpuscular Hemoglobin 29.1 PG (26-34); Mean Corpuscular Volume 85.4 fL (80-100); Monocytes Absolute Auto 600 /uL (0-900); Monocytes Percent Auto 6.2 % (3-14); Neutrophils Absolute Auto 5800 /uL (1500-7000); Neutrophils Percent Auto 56.9 % (50-75); Platelet Count 284 X10^3/uL (150-400); Red Blood Cell Count 4.61 X10^6/uL (4.0-5.2); Red Cell Distribution Width 13.6 % (11.6-14.8); White Blood Cell Count 10.2 X10^3/uL (4.5-11.0)
[2021-08-04] VITALS: BP 103/59; PULSE 77; RESP 20; O2SAT 97
[2021-08-04 00:06] LABS: INR 0.9 (0.9-1.3); Prothrombin Time 10.2 SECONDS (10.1-12.7)
[2021-08-04 00:11] LABS: Alanine Aminotransferase 25 IU/L (<35); Albumin 4.1 g/dL (3.5-5.0); Albumin Globulin Ratio 1.2 (1.0-2.8); Alkaline Phosphatase 61 U/L (38-126); Aspartate Aminotransferase 26 IU/L (14-36); BUN Creatinine Ratio 21.5 (6-22); Bilirubin Total 0.3 mg/dL (0.2-1.3); Blood Urea Nitrogen 14 mg/dL (7-17); Calcium 9.1 mg/dL (8.4-10.2); Carbon Dioxide 28 mmol/L (22-32); Chloride 103 mmol/L (98-107); Creatine Kinase 54 U/L (30-135); Estimated Glomerular Filt Rate > 60.0 mL/min (>60); Globulin 3.3 g/dL (1.7-4.1); Glucose 102 mg/dL (70-100); HEMOLYSIS < 15 (0-50); Lipase 75 U/L (23-300); Potassium 3.8 mmol/L (3.4-5.1); Sodium 136 mmol/L (137-145); Total Protein 7.4 g/dL (6.3-8.2)
[2021-08-04 00:15] LABS: D Dimer 258 ng/mL (<230)
[2021-08-04 00:23] LABS: NT-proBNP (BNP-Adult 18+) 41 pg/mL (<125); Troponin I < 0.012 ng/mL (0.01-0.034)
--- NOTE | 2021-08-04 00:29 | ED_ITS ---
HPI - Arrhythmia/Palpitations General Chief Complaint: Arrhythmia/Palpitations Stated Complaint: heart issues Time Seen by Provider: 08/03/21 23:25 Source: patient and family Mode of arrival: Ambulatory History of Present Illness HPI narrative: 50-year-old female occasional smoker presents with her in the chief complaint of palpitations over the course of the day. When present she admits to some squeezing in her chest. She currently is not having symptoms. She denies dizziness, weakness or lightheadedness. She has no shortness of breath, nausea or vomiting. She denies any change in her diet nor excessive use of caffeine, alcohol or nicotine. She denies any significant change in her sleep patterns, exercise habits or stress at home. Related Data Previous Rx's Medication Instructions Recorded valacyclovir 500 mg tablet 500 mg PO BID PRN #90 tab 12/11/20 ibuprofen 800 mg tablet 800 mg PO Q8H PRN #30 tab 05/09/21 Allergies Allergy/AdvReac Type Severity Reaction Status Date / Time No Known Drug Allergies Allergy Verified 08/02/21 14:39 Patient History Medical History Anxiety disorder due to general medical condition with panic attack Atypical chest pain (~12/2016) Depression Diverticula of intestine Elevated liver enzymes Herpes Hypercholesterolemia Murmur Surgical History History of bilateral inguinal hernia repair History of cholecystectomy (07/04/17) History of herniorrhaphy History of third molar tooth extraction Status post endoscopy Social History marital status: household members: spouse and family occupational status: employed Smoking Status: Current some day smoker alcohol intake: current substance use type: does not use Smoking Status: Current some day smoker alcohol intake frequency: a few times a week Substance Use Type: does not use Exam Narrative Exam Narrative: GENERAL: [50] year old patient appears stated age. Well-developed patient, in mild distress. HEAD: Atraumatic. Normocephalic. EYES: Pupils equal round and reactive. Extraocular motions intact. No scleral icterus. No injection or drainage. ENT: Nose without bleeding, purulent drainage. Throat without erythema, tonsillar hypertrophy or exudate. Airway patent. NECK: Trachea midline. Non tender CARDIOVASCULAR: Regular rate and rhythm without murmurs, gallops, or rubs. RESPIRATORY: Clear to auscultation. Breath sounds equal bilaterally. No wheezes, rales, or rhonchi. GASTROINTESTINAL: Abdomen soft, non-tender, nondistended. EXTREMITIES: No edema or joint tenderness. BACK: Nontender without deformity or crepitance. No flank tenderness. NEURO: AOx3. SKIN: No rash or erythema of visible areas Initial Vital Signs Initial Vital Signs: Vital Signs Temperature 97.8 F 08/03/21 23:25 Pulse Rate 76 08/03/21 23:25 Respiratory Rate 18 08/03/21 23:25 Blood Pressure 137/82 08/03/21 23:25 Pulse Oximetry 99 08/03/21 23:25 Course Orders Ordered: ED Orders 08/03/21 23:27 XR chest 1V Stat EKG-12 Lead Stat 08/03/21 23:44 Complete Blood Count AUTO DIFF Stat Comprehensive Metabolic Panel Stat D Dimer Stat Lipase Stat NT-proBNP (BNP-Adult 18+) Stat Prothrombin Time INR Stat Troponin & CK Cardiac Panel Stat Discontinued Medications Sodium Chloride (Normal Saline 0.9%) 1,000 mls @ 150 mls/hr IV CONT CHRISTO Last Admin: 08/04/21 00:47 Dose: Not Given Documented by: CYNTHIA Vital Signs Vital signs: Vital Signs - 8 hr 08/03/21 23:25 08/03/21 23:28 08/03/21 23:29 Temperature 97.8 F Pulse Rate 76 77 75 Respiratory Rate 18 18 15 Blood Pressure 137/82 125/75 Pulse Oximetry 99 99 99 08/03/21 23:30 08/04/21 00:00 08/04/21 00:30 Temperature Pulse Rate 79 77 85 Respiratory Rate 13 20 15 Blood Pressure 122/71 103/59 L 108/67 Pulse Oximetry 99 97 96 MDM - Arrhythmia/Palpitations Lab Data Result diagrams: 08/03/21 23:44 08/03/21 23:44 Labs: Lab Results 08/03/21 08/03/21 08/03/21 Range/Units 23:44 23:44 23:44 WBC 10.2 (4.5-11.0) X10^3/uL RBC 4.61 (4.0-5.2) X10^6/uL Hgb 13.4 (12.0-16.0) g/dL Hct 39.4 (36-46) % MCV 85.4 (80-100) fL MCH 29.1 (26-34) PG MCHC 34.1 (30-36) % RDW 13.6 (11.6-14.8) % Plt Count 284 (150-400) X10^3/uL Neut % (Auto) 56.9 (50-75) % Lymph % (Auto) 34.7 (25-40) % [place] % (Auto) 6.2 (3-14) % Eos % (Auto) 1.5 L (2-4) % Baso % (Auto) 0.7 (0-2) % Neut # (Auto) 5800 (6933-5322) /uL Lymph # (Auto) 3500 (3425-1899) /uL [place] # (Auto) 600 (0-900) /uL Eos # (Auto) 200 (0-450) /uL Baso # (Auto) 100 (0-100) /uL PT 10.2 (10.1-12.7) SECONDS INR 0.9 (0.9-1.3) D-Dimer 258 H (<230) ng/mL Sodium 136 L (137-145) mmol/L Potassium 3.8 (3.4-5.1) mmol/L Chloride 103 (98-107) mmol/L Carbon Dioxide 28 (22-32) mmol/L BUN 14 (7-17) mg/dL Creatinine 0.65 (0.52-1.04) mg/dL Estimated GFR > 60.0 (>60) mL/min BUN/Creatinine Ratio 21.5 (6-22) Glucose 102 H (70-100) mg/dL Calcium 9.1 (8.4-10.2) mg/dL Total Bilirubin 0.3 (0.2-1.3) mg/dL AST 26 (14-36) IU/L ALT 25 (<35) IU/L Alkaline Phosphatase 61 (38-126) U/L Total Creatine Kinase 54 (30-135) U/L CK-MB (CK-2) TNP CK-MB (CK-2) Rel Index TNP Troponin I < 0.012 (0.01-0.034) ng/mL NT-Pro-B Natriuret Pep 41 (<125) pg/mL Total Protein 7.4 (6.3-8.2) g/dL Albumin 4.1 (3.5-5.0) g/dL Globulin 3.3 (1.7-4.1) g/dL Albumin/Globulin Ratio 1.2 (1.0-2.8) Lipase 75 (23-300) U/L MDM Narrative Medical decision making narrative: Female presents with multiple palpitations and software on her phone notes PVCs as frequently as 15 beats per minute. This had resolved prior to her arrival. She has a reassuring history, physical exam, labs, EKG and cardiac monitoring. She has an upcoming appointment with her primary care provider and they have already spoken about obtaining a ZIO patch. She has been given extensive return precautions and is had questions answered to her apparent satisfaction Discharge Plan Departure Patient Disposition: Home Clinical Impression: Premature ventricular contraction Instructions: Premature Ventricular Beats Activity Restrictions/Additional Instructions: *You have been diagnosed with [premature ventricular contractions] *What to do: *Please continue to take your regular medications as directed. [ ] New medication prescriptions sent to your pharmacy: [ ] [ ] New medication written as a paper prescription [x ] No new medications given *Please follow up with your primary care provider in 2-3 days, call for an appointment. Let them know you were seen in the Emergency Department and that we ask that you be seen in follow up. We will electronically transmit a record of today's note if your PCP is in our system *As we discussed please try to avoid situations that will put you at increased risk such as consumption of significant caffeine, nicotine, alcohol, or other stimulants. Also, try to maximize your sleep and minimize external stress. *If you do not have a primary care provider please contact the [facility] Resource line at [phone]. They will ask some questions about your medical history and help get you set up with a doctor in the community. *Return to Emergency Department if you should have any new, worsening or concerning symptoms, such as [fever greater than 101 F, shaking chills, worsening pain, persistent vomiting or other bothersome symptoms] Prescriptions: No Action valacyclovir 500 mg tablet 500 mg PO BID PRN (Reason: Cold Sores) Qty: 90 0RF ibuprofen 800 mg tablet 800 mg PO Q8H PRN (Reason: pain) Qty: 30 0RF Referrals: Susan Gonzalez ARNP [Primary Care Provider] - Stand Alone Forms: Work Release Note
[2021-08-04 00:30] VITALS: BP 108/67; PULSE 85; RESP 15; O2SAT 96
== END 2021-08-04 00:47 | disposition home or self-care (01) ==
PROVIDERS: Emergency Provider Emergency Medicine; PCP Nurse Practitioner
DX: I49.3 Ventricular premature depolarization (principal); F17.200 Nicotine dependence, unspecified, uncomplicated
CPT/HCPCS: 36415; 71045; 80053; 82550; 82553; 83690; 83880; 84484; 85025; 85379; 85610; 99283; 99284

== ENCOUNTER → 2021-08-26 08:57 | Outpatient (CLI) | payer OTHER, SELFPAY ==
[2021-05-08 18:49] VITALS: BMI 32.5
--- NOTE | 2021-08-26 | DI.MG.S_ITS ---
BILATERAL DIGITAL SCREENING MAMMOGRAM 3D/2D WITH CAD WITH AUGMENTATION: 08/26/2021 Comparison is made to exams dated: 10/23/2019 mammogram, 02/15/2019 mammogram, 07/18/2018 mammogram, 07/09/2018 mammogram, 05/26/2016 mammogram, and 08/20/2015 [facility]. The tissue of both breasts is heterogeneously dense. This may lower the sensitivity of mammography. Current study was also evaluated with a Computer Aided Detection (CAD) system. Left breast asymmetry seen on the MLO view posterior depth central to the nipple demonstrates long-term stability. No significant masses, calcifications, or other findings are seen in either breast. Breast implants are stable and intact. There has been no significant interval change. IMPRESSION: NEGATIVE There is no mammographic evidence of malignancy. Left breast asymmetry seen on the MLO view posterior depth central to the nipple demonstrates long-term stability. Intact breast implants. A 1 year screening mammogram is recommended. This exam was interpreted at Station ID: [id number]. NOTE: For mammograms, a report in lay terms will be sent to the patient. Approximately 15% of breast malignancies will not be visualized mammographically. In the management of a palpable breast mass, a negative mammogram must not discourage biopsy of a clinically suspicious lesion. Electronically Signed By: Jordon Easton M.D. slc/:08/26/2021 11:37:21 letter sent: Normal Exam ACR BI-RADS Category 1: Negative [id number]
== END ==
PROVIDERS: PCP Nurse Practitioner; Referring Provider Nurse Practitioner; Visit Provider Nurse Practitioner
DX: Z12.31 Encounter for screening mammogram for malignant neoplasm of breast (principal)
CPT/HCPCS: 77063; 77067

== ENCOUNTER → 2021-08-31 08:37 | Outpatient (CLI) | payer OTHER, SELFPAY ==
[2021-05-08 18:49] VITALS: BMI 32.5
--- NOTE | 2021-09-30 15:40 | P.HOLT.S_ITS ---
Social Worker Masters Report Referral & Results Date Patient Seen: 08/30/21 Requesting provider: Susan Gonzalez Indication: Palpitations Duration of monitoring (days): 14 Diary information: There were 2 patient triggered events and 4 patient diary entries Patient triggered events were associated with (within 45 seconds) sinus rhythm, PVCs and ventricular trigeminy Patient diary events were associated with (within 45 seconds) sinus rhythm and PVCs Data: Minimum heart rate identified was 46 beats per minute at 03:02 on 09/04/2021 Maximum heart rate was 152 beats per minute at 17:57 on 09/12/2021 Less than 1% of identified beats were ventricular or supraventricular ectopic in origin, which would classify them as rare. There were no pauses of 3 seconds or longer or episodes of atrial fibrillation or SVT identified on this study Impression: Essentially normal 14 day clinical research monitor demonstrating rare PVCs as a possible source of perceived palpitations
== END ==
PROVIDERS: Family Provider Nurse Practitioner; PCP Nurse Practitioner; Referring Provider Nurse Practitioner; Visit Provider Nurse Practitioner
DX: R00.2 Palpitations (principal)
CPT/HCPCS: 93246; 93248

== ENCOUNTER → 2021-10-08 15:30 | Outpatient (CLI) | payer OTHER, SELFPAY ==
[2021-05-08 18:49] VITALS: BMI 32.5
== END ==
PROVIDERS: Family Provider Nurse Practitioner; PCP Nurse Practitioner; Visit Provider Nurse Practitioner Family
DX: J02.9 Acute pharyngitis, unspecified (principal)
CPT/HCPCS: 87070

== ENCOUNTER → 2022-06-03 08:24 | Outpatient (CLI) | payer OTHER, SELFPAY ==
[2021-05-08 18:49] VITALS: BMI 32.5
--- NOTE | 2022-06-03 | DI.MRI.S_ITS ---
PROCEDURE: MR SHOULDER LT WO CON INDICATIONS: Pain in left shoulder TECHNIQUE: Noncontrast oblique coronal T2 fast spin echo with fat saturation, oblique sagittal T1 spin echo and T2 fast spin echo with fat saturation, axial T1 spin echo and T2 fast spin echo with fat saturation through the shoulder. COMPARISON: [facility], CR, XR SHOULDER 2+ VIEWS LEFT, 05/30/2022, 11:15. FINDINGS: Image quality: Excellent. Rotator cuff: Moderate supraspinatus, infraspinatus and subscapularis tendinosis. No high-grade partial full-thickness tendon tear or rotator cuff muscle atrophy. Bones and bursae: No bone marrow contusions or fractures. Mild acromioclavicular and glenohumeral joint degeneration. The acromion demonstrates conventional anatomy, without an os acromiale. There is subacromial-subdeltoid bursal fluid consistent with bursitis. Capsule and soft tissues: There is degenerative tear/ fraying of the superior labrum. The long head of the biceps tendon demonstrates normal location and morphology. The rotator interval appears irregular with mild fibrosis. The coracohumeral ligament is normal in thickness. IMPRESSION: 1. Moderate supraspinatus, infraspinatus and subscapularis tendinosis. 2. Subacromial-subdeltoid bursitis. 3. Mild acromioclavicular and glenohumeral joint degeneration. 4. Degenerative tear is fraying of the superior labrum. 5. Irregular rotator interval with mild fibrosis. This finding can be associated with adhesive capsulitis. Recommend clinical correlation. Dictated by: Lois Cisse M.D. on 06/03/2022 at 11:38 Approved by: Lois Cisse M.D. on 06/03/2022 at 11:49
== END ==
PROVIDERS: Family Provider Nurse Practitioner; PCP Nurse Practitioner; Referring Provider Orthopaedic Surgery; Visit Provider Orthopaedic Surgery
DX: M19.012 Primary osteoarthritis, left shoulder (principal); M75.52 Bursitis of left shoulder; M25.512 Pain in left shoulder
CPT/HCPCS: 73221

== ENCOUNTER 2022-10-15 22:11 | Emergency (ER) | payer OTHER, SELFPAY ==
[2021-05-08 18:49] VITALS: BMI 32.5
[2022-10-15 22:14] VITALS: BP 160/69; PULSE 82; RESP 18; TEMP 36; O2SAT 100; BMI 33.5
--- NOTE | 2022-10-15 22:20 | DI.RAD.S_ITS ---
PROCEDURE: XR CHEST 1V INDICATIONS: chest pain TECHNIQUE: One view of the chest was acquired. COMPARISON: [facility], CR, XR CHEST 1V, 08/03/2021, 23:29. [facility], CR, XR CHEST 1V, 05/11/2021, 17:36. FINDINGS: Surgical changes and devices: None. Lungs and pleura: Lungs are clear. No pleural effusions or pneumothorax. Mediastinum: Mediastinal contours appear normal. Heart size is normal. Bones and chest wall: No suspicious bony lesions. Overlying soft tissues appear unremarkable. IMPRESSION: Normal for age, source of current chest pain symptoms is not seen. Dictated by: Martin Barreto M.D. on 10/15/2022 at 22:44 Approved by: Martin Barreto M.D. on 10/15/2022 at 22:44
--- NOTE | 2022-10-15 22:40 | ED_ITS ---
HPI - Chest Pain General Chief Complaint: Chest Pain Stated Complaint: Chest pain Time Seen by Provider: 10/15/22 22:12 Source: patient Mode of arrival: Ambulatory Limitations: no limitations History of Present Illness HPI narrative: 51-year-old female smoker with history of PVCs presents for evaluation of chest pain. She states that she is been having episodes off and on for the past few weeks but over the course of the day it became a bit more intense. She states it is just right of the center of her chest and a burning sensation that is present for some time and then seems to go away with a mind of its own. There is no obvious provocation or palliation. She denies any radiation of her symptoms. She denies associated symptoms such as dizziness, weakness or lightheadedness. She is had no runny nose, sore throat nor any fever, chills or cough. She denies any exercise intolerance. She is had no recent travel, history of known cancer, blood clot nor does she taking any hormone replacement. She denies any lower extremity pain, swelling or redness Related Data Previous Rx's Medication Instructions Recorded valacyclovir 500 mg tablet 500 mg PO BID PRN Cold Sores #90 12/11/20 tabs ibuprofen 800 mg tablet 800 mg PO Q8H PRN pain #30 tabs 05/09/21 Allergies Allergy/AdvReac Type Severity Reaction Status Date / Time No Known Drug Allergies Allergy Verified 10/15/22 22:14 Review of Systems Review of Systems Narrative: GENERAL: Denies chills, fatigue, malaise, fever, sweats. HEENT: Denies sinus pain, ear pain, sore throat, difficulty swallowing, dizziness. RESPIRATORY: Denies dyspnea, cough, wheezing, hemoptysis, sputum. CARDIOVASCULAR: See HPI GASTROINTESTINAL: Denies nausea, vomiting, abdominal pain, diarrhea, constipation, melena. : Denies dysuria, frequency, incontinence, hematuria, urinary retention. MUSCULOSKELETAL: denies weakness, joint pain, or bony pain SKIN: Denies rash, skin lesions, or other NEUROLOGIC: Denies weakness, headache, numbness, change in speech, confusion, seizures, incoordination. PSYCHIATRIC: No concerning psychosocial issues. 12 point review of systems is negative except for those stated above Patient History Medical History Anxiety disorder due to general medical condition with panic attack Atypical chest pain (~12/2016) Depression Diverticula of intestine Elevated liver enzymes Herpes Hypercholesterolemia Murmur Surgical History History of bilateral inguinal hernia repair History of cholecystectomy (07/04/17) History of herniorrhaphy History of third molar tooth extraction Hx of breast implants, bilateral Status post endoscopy Social History marital status: household members: spouse and family occupational status: employed Smoking Status: Current some day smoker alcohol intake: current substance use type: does not use Smoking Status: Current some day smoker tobacco type: cigarettes alcohol intake frequency: a few times a week Substance Use Type: does not use Exam Narrative Exam Narrative: GENERAL: [51] year old patient appears stated age. Well-developed patient, in mild distress. HEAD: Atraumatic. Normocephalic. EYES: Pupils equal round and reactive. Extraocular motions intact. No scleral icterus. No injection or drainage. ENT: Nose without bleeding, purulent drainage. Throat without erythema, tonsillar hypertrophy or exudate. Airway patent. NECK: Trachea midline. Non tender CARDIOVASCULAR: Regular rate and rhythm without murmurs, gallops, or rubs. RESPIRATORY: Clear to auscultation. Breath sounds equal bilaterally. No wheezes, rales, or rhonchi. GASTROINTESTINAL: Abdomen soft, non-tender, nondistended. EXTREMITIES: No edema or joint tenderness. BACK: Nontender without deformity or crepitance. No flank tenderness. NEURO: AOx3. SKIN: No rash or erythema of visible areas Initial Vital Signs Initial Vital Signs: Vital Signs Temperature 96.8 F L 10/15/22 22:14 Pulse Rate 82 10/15/22 22:14 Respiratory Rate 18 10/15/22 22:14 Blood Pressure 160/69 H 10/15/22 22:14 Pulse Oximetry 100 10/15/22 22:14 Oxygen Delivery Method Room Air 10/15/22 22:14 Scores HEART Score Heart Score history: Slightly Suspicious Heart Score EKG: Normal Heart Score Age: 45-64 years old Heart Score risk factors: 1-2 risk factors Heart Score troponin: < or = to normal limit Heart Score Total: 2 PERC Score Age greater than or equal to 50 years: Yes Heart rate greater than or equal to 100 bpm: No Room Air O2 Sat less than 95%: No Unilateral leg swelling: No Recent trauma or surgery: No Hemoptysis: No Prior PE or DVT: No Hormone Use: No Total PERC Score: 1 Wells' Criteria for PE Clinical signs and symptoms of DVT: No PE is #1 Dx or equally likely: No Heart rate > 100: No Immobilization at least 3 days or surg in previous 4 weeks: No History of PE or DVT: No Hemoptysis: No Malignancy w/Treatment within 6 months or palliative: No Wells' PE Score total: 0 Course Orders Ordered: ED Orders 10/15/22 22:20 XR chest 1V Stat EKG-12 Lead Stat 10/15/22 22:22 Complete Blood Count AUTO DIFF Stat Comprehensive Metabolic Panel Stat D Dimer Stat Lipase Stat Magnesium Stat PTT Partial Thromboplastin [facility] Stat Prothrombin Time INR Stat Troponin & CK Cardiac Panel Stat 10/15/22 23:45 CT angio chest PE protocol Stat 10/16/22 01:24 Troponin & CK Cardiac Panel Stat Discontinued Medications Aspirin (Aspirin 81 Mg Chew Tab) 324 mg PO NOW ONE Stop: 10/15/22 22:21 Last Admin: 10/15/22 22:57 Dose: 324 mg Documented By: NATHAN Vital Signs Vital signs: Vital Signs - 8 hr 10/15/22 22:14 10/15/22 23:40 10/16/22 00:08 Temperature 96.8 F L Pulse Rate 82 77 73 Respiratory Rate 18 20 20 Blood Pressure 160/69 H 142/61 H Pulse Oximetry 100 97 97 Oxygen Delivery Method Room Air Room Air 10/16/22 00:09 10/16/22 00:09 10/16/22 00:36 Temperature Pulse Rate 76 Respiratory Rate 30 H Blood Pressure 119/81 Pulse Oximetry 97 100 Oxygen Delivery Method 10/16/22 01:00 10/16/22 01:30 10/16/22 02:00 Temperature Pulse Rate 71 73 69 Respiratory Rate 28 H 15 14 Blood Pressure Pulse Oximetry 93 94 95 Oxygen Delivery Method MDM - Chest Pain Lab Data 10/15/22 22:22 10/15/22 22:22 Labs: Lab Results 10/15/22 10/15/22 10/15/22 Range/Units 22:22 22:22 22:22 WBC 9.6 (4.5-11.0) X10^3/uL RBC 4.72 (4.0-5.2) X10^6/uL Hgb 14.0 (12.0-16.0) g/dL Hct 40.9 (36-46) % MCV 86.7 (80-100) fL MCH 29.6 (26-34) PG MCHC 34.1 (30-36) % RDW 12.7 (11.6-14.8) % Plt Count 319 (150-400) X10^3/uL Neut % (Auto) 54.3 (50-75) % Lymph % (Auto) 36.4 (25-40) % [place] % (Auto) 7.2 (3-14) % Eos % (Auto) 1.4 L (2-4) % Baso % (Auto) 0.7 (0-2) % Neut # (Auto) 5200 (1924-3807) /uL Lymph # (Auto) 3500 (3739-8103) /uL [place] # (Auto) 700 (0-900) /uL Eos # (Auto) 100 (0-450) /uL Baso # (Auto) 100 (0-100) /uL PT 10.7 (10.1-12.7) SECONDS INR 0.9 (0.9-1.3) APTT 33 (26-36) SECONDS D-Dimer (<500) ng/ml Sodium 139 (137-145) mmol/L Potassium 4.0 (3.4-5.1) mmol/L Chloride 100 (98-107) mmol/L Carbon Dioxide 32 (22-32) mmol/L BUN 19 H (7-17) mg/dL Creatinine 0.65 (0.52-1.04) mg/dL Estimated GFR > 60 (>60) mL/min BUN/Creatinine Ratio 29.2 H (6-22) Glucose 100 (70-100) mg/dL Calcium 9.4 (8.4-10.2) mg/dL Magnesium 2.0 (1.6-2.3) mg/dL Total Bilirubin 0.2 (0.2-1.3) mg/dL AST 29 (14-36) IU/L ALT 39 H (<35) IU/L Alkaline Phosphatase 64 (38-126) U/L Total Creatine Kinase 54 (30-135) U/L CK-MB (CK-2) TNP CK-MB (CK-2) Rel Index TNP Troponin I < 0.012 (0.01-0.034) ng/mL Total Protein 8.1 (6.3-8.2) g/dL Albumin 4.7 (3.5-5.0) g/dL Globulin 3.4 (1.7-4.1) g/dL Albumin/Globulin Ratio 1.4 (1.0-2.8) Lipase 70 (23-300) U/L 10/15/22 10/16/22 Range/Units 22:22 01:24 WBC (4.5-11.0) X10^3/uL RBC (4.0-5.2) X10^6/uL Hgb (12.0-16.0) g/dL Hct (36-46) % MCV (80-100) fL MCH (26-34) PG MCHC (30-36) % RDW (11.6-14.8) % Plt Count (150-400) X10^3/uL Neut % (Auto) (50-75) % Lymph % (Auto) (25-40) % [place] % (Auto) (3-14) % Eos % (Auto) (2-4) % Baso % (Auto) (0-2) % Neut # (Auto) (2462-2693) /uL Lymph # (Auto) (2676-0296) /uL [place] # (Auto) (0-900) /uL Eos # (Auto) (0-450) /uL Baso # (Auto) (0-100) /uL PT (10.1-12.7) SECONDS INR (0.9-1.3) APTT (26-36) SECONDS D-Dimer 564 H (<500) ng/ml Sodium (137-145) mmol/L Potassium (3.4-5.1) mmol/L Chloride (98-107) mmol/L Carbon Dioxide (22-32) mmol/L BUN (7-17) mg/dL Creatinine (0.52-1.04) mg/dL Estimated GFR (>60) mL/min BUN/Creatinine Ratio (6-22) Glucose (70-100) mg/dL Calcium (8.4-10.2) mg/dL Magnesium (1.6-2.3) mg/dL Total Bilirubin (0.2-1.3) mg/dL AST (14-36) IU/L ALT (<35) IU/L Alkaline Phosphatase (38-126) U/L Total Creatine Kinase 45 (30-135) U/L CK-MB (CK-2) TNP CK-MB (CK-2) Rel Index TNP Troponin I < 0.012 (0.01-0.034) ng/mL Total Protein (6.3-8.2) g/dL Albumin (3.5-5.0) g/dL Globulin (1.7-4.1) g/dL Albumin/Globulin Ratio (1.0-2.8) Lipase (23-300) U/L MDM Narrative Medical decision making narrative: [51] year old patient presents with chest pain Multiple etiologies for patient's symptoms considered including, but not limited to: [Cardiac ischemia versus pulmonary embolism versus musculoskeletal versus dissection versus other] Prior Charts reviewed in our EMR Primary Historian: patient Labs reviewed and interpreted by myself: No anemia, no leukocytosis or left shift, D-dimer is elevated above the age corrected cutoff, electrolytes, renal function and troponin x2 negative Imaging reviewed: CTA no PE Patient with reassuring history and physical exam, low risk and low heart score. EKGs nonischemic, troponin x2 negative. Multiple scoring systems including heart, wells, PERC considered and CT angiogram ordered which thankfully shows no sign of clot, pericardial effusion or other abnormal finding Findings and discharge diagnosis discussed with patient/family followed by verbalization of understanding Return precautions discussed with patient/family whom verbalize understanding of diagnosis and plan Discharge Plan Departure Patient Disposition: Home Clinical Impression: Atypical chest pain Instructions: DI for Atypical Chest Pain Activity Restrictions/Additional Instructions: *You have been diagnosed with [atypical chest pain. As we discussed your history and physical exam are reassuring as are labs, EKGs and imaging. There is no evidence of heart attack, blood clot or other significant diagnosis that requires a specific or immediate intervention *What to do: *Please continue to take your regular medications as directed. [ ] New medication prescriptions sent to your pharmacy: [ ] [ ] New medication written as a paper prescription [ ] No new medications given *Please follow up with your primary care provider in 2-3 days, call for an appointment. Let them know you were seen in the Emergency Department and that we ask that you be seen in follow up. We will electronically transmit a record of today's note if your PCP is in our system *If you do not have a primary care provider please contact the [facility] Resource line at [phone]. They will ask some questions about your medical history and help get you set up with a doctor in the community. *Return to Emergency Department if you should have any new, worsening or concerning symptoms, such as [fever greater than 101 F, shaking chills, worsening pain, persistent vomiting or other bothersome symptoms] Prescriptions: No Action valacyclovir 500 mg tablet 500 mg PO BID PRN (Reason: Cold Sores) Qty: 90 0RF ibuprofen 800 mg tablet 800 mg PO Q8H PRN (Reason: pain) Qty: 30 0RF Referrals: Susan Gonzalez ARNP [Primary Care Provider] - Stand Alone Forms: Patient Portal/API
[2022-10-15 22:43] LABS: Add Manual Diff / Slide Review NO; Basophils Absolute Auto 100 /uL (0-100); Basophils Percent Auto 0.7 % (0-2); Eosinophils Absolute Auto 100 /uL (0-450); Eosinophils Percent Auto 1.4 % (2-4); Hematocrit 40.9 % (36-46); Lymphocytes Absolute Auto 3500 /uL (1100-4500); Lymphocytes Percent Auto 36.4 % (25-40); Mean Corpuscular HGB Conc 34.1 % (30-36); Mean Corpuscular Hemoglobin 29.6 PG (26-34); Mean Corpuscular Volume 86.7 fL (80-100); Monocytes Absolute Auto 700 /uL (0-900); Monocytes Percent Auto 7.2 % (3-14); Neutrophils Absolute Auto 5200 /uL (1500-7000); Neutrophils Percent Auto 54.3 % (50-75); Platelet Count 319 X10^3/uL (150-400); Red Blood Cell Count 4.72 X10^6/uL (4.0-5.2); Red Cell Distribution Width 12.7 % (11.6-14.8); White Blood Cell Count 9.6 X10^3/uL (4.5-11.0)
[2022-10-15 22:53] LABS: Alanine Aminotransferase 39 IU/L (<35); Albumin 4.7 g/dL (3.5-5.0); Albumin Globulin Ratio 1.4 (1.0-2.8); Alkaline Phosphatase 64 U/L (38-126); Aspartate Aminotransferase 29 IU/L (14-36); BUN Creatinine Ratio 29.2 (6-22); Bilirubin Total 0.2 mg/dL (0.2-1.3); Blood Urea Nitrogen 19 mg/dL (7-17); Calcium 9.4 mg/dL (8.4-10.2); Carbon Dioxide 32 mmol/L (22-32); Chloride 100 mmol/L (98-107); Creatine Kinase 54 U/L (30-135); Estimated Glomerular Filt Rate > 60 mL/min (>60); Globulin 3.4 g/dL (1.7-4.1); Glucose 100 mg/dL (70-100); HEMOLYSIS 17 (0-50); Lipase 70 U/L (23-300); Sodium 139 mmol/L (137-145); Total Protein 8.1 g/dL (6.3-8.2)
[2022-10-15 22:54] LABS: INR 0.9 (0.9-1.3); Prothrombin Time 10.7 SECONDS (10.1-12.7)
[2022-10-15 22:57] LABS: PTT Partial Thromboplastin Tim 33 SECONDS (26-36)
[2022-10-15] MEDS: ASPIRIN 81 MG CHEW TAB 324 MG PO (22:57)
[2022-10-15 23:04] LABS: Troponin I < 0.012 ng/mL (0.01-0.034)
[2022-10-15 23:06] LABS: D Dimer 564 ng/ml (<500)
[2022-10-15 23:40] VITALS: BP 142/61; PULSE 77; RESP 20; O2SAT 97
--- NOTE | 2022-10-15 23:45 | DI.CT.S_ITS ---
PROCEDURE: CT ANGIO CHEST PE PROTOCOL INDICATIONS: Chest pain, back pain, elevated D Dimer above cutoff TECHNIQUE: After the administration of intravenous contrast, 2 mm thick sections acquired from the pulmonary apices to the posterior costophrenic angles. 3-dimensional maximum intensity projection (MIP) coronal and sagittal reformats were then acquired through the thorax. For radiation dose reduction, the following was used: automated exposure control, adjustment of mA and/or kV according to patient size. COMPARISON: None. FINDINGS: Image quality: Excellent. Pulmonary arteries: Pulmonary arteries are normal in size, and demonstrate no intraluminal filling defects to suggest central pulmonary embolism. Lungs and pleura: Lungs are clear. No pleural effusions or pneumothorax. Central and peripheral airways are patent. Mediastinum: Heart size is normal, without pericardial effusion. No mediastinal or hilar adenopathy. Thoracic aorta is normal in caliber and enhancement. Esophagus is normal in caliber, without hiatal hernia. Bones and chest wall: No suspicious bony lesions. Ribs and thoracic spine appear intact throughout. Thyroid gland appears normal where well seen. No axillary or supraclavicular adenopathy. Abdomen: Visualized upper abdominal solid organs appear normal in the early arterial phase of enhancement. IMPRESSION: No pulmonary embolus found, source of current symptoms is not identified. Dictated by: Martin Barreto M.D. on 10/16/2022 at 1:35 Approved by: Martin Barreto M.D. on 10/16/2022 at 1:37
[2022-10-16 00:08] VITALS: PULSE 73; RESP 20; O2SAT 97
[2022-10-16 00:09] VITALS: BP 119/81; PULSE 76; RESP 30; O2SAT 97
--- NOTE | 2022-10-16 00:17 | PC.NURSE ---
Patient moved to room 8 to continue evaluation. Patient was in [facility] bed location on bedside telemetry monitor. To view vitals during this time, please see paper chart/uploaded documents.
[2022-10-16 00:36] VITALS: O2SAT 100
[2022-10-16 01:00] VITALS: PULSE 71; RESP 28; O2SAT 93
[2022-10-16 01:30] VITALS: PULSE 73; RESP 15; O2SAT 94
[2022-10-16 01:39] LABS: Creatine Kinase 45 U/L (30-135)
[2022-10-16 01:52] LABS: Troponin I < 0.012 ng/mL (0.01-0.034)
[2022-10-16 02:00] VITALS: PULSE 69; RESP 14; O2SAT 95
== END 2022-10-16 02:29 | disposition home or self-care (01) ==
PROVIDERS: Emergency Provider Emergency Medicine; Family Provider Nurse Practitioner; PCP Nurse Practitioner
DX: R07.89 Other chest pain (principal)
CPT/HCPCS: 36415; 71045; 71275; 80053; 82550; 83690; 83735; 84484; 85025; 85379; 85610; 85730; 93005; 93010; 99284; Q9967

== ENCOUNTER 2022-11-01 15:25 | Emergency (ER) | payer OTHER, SELFPAY ==
[2021-05-08 18:49] VITALS: BMI 32.5
[2022-11-01 15:40] VITALS: BP 115/65; PULSE 65; RESP 16; TEMP 36.6; O2SAT 99; BMI 32.5
[2022-11-01 19:50] VITALS: BP 129/58; PULSE 74; RESP 18; O2SAT 100
--- NOTE | 2022-11-01 20:00 | ED_ITS ---
HPI - Chest Pain General Chief Complaint: Chest Pain Stated Complaint: Right breast pain Time Seen by Provider: 11/01/22 19:49 Source: patient Mode of arrival: Ambulatory Limitations: no limitations History of Present Illness HPI narrative: Patient is a 51-year-old female who has had chest discomfort for several weeks if not longer. States it initially started with enlarged lymph nodes in her left armpit. She was advised to get a mammogram but could not get it because she could not lift her left arm because of a frozen shoulder. Since has received a steroid injection and left shoulder and now can move it. She was subsequently seen in the emergency department for right-sided chest discomfort that had a fairly extensive workup without a specific diagnosis. She did have a CT scan. Since that time she is followed up with her primary doctor who recommended that she get an MRI because she has saline breast implants. Patient found that if she moves her right saline breast implant she can reproduce the discomfort. She denies any fevers. A MRI was recommended. She stated that the MRI was denied by insurance so she was told by her primary doctor to come to the emergency department in order to have that MRI performed. Related Data Previous Rx's Medication Instructions Recorded valacyclovir 500 mg tablet 500 mg PO BID PRN Cold Sores #90 12/11/20 tabs ibuprofen 800 mg tablet 800 mg PO Q8H PRN pain #30 tabs 05/09/21 Allergies Allergy/AdvReac Type Severity Reaction Status Date / Time No Known Drug Allergies Allergy Verified 10/26/22 15:24 Review of Systems Constitutional Constitutional: Reports system reviewed and no additional complaints, except as documented Cardiovascular Cardiovascular: Reports system reviewed and no additional complaints, except as documented Respiratory Respiratory: Reports system reviewed and no additional complaints, except as documented Patient History Medical History Anxiety disorder due to general medical condition with panic attack Atypical chest pain (~12/2016) Depression Diverticula of intestine Elevated liver enzymes Herpes Hypercholesterolemia Murmur Surgical History History of bilateral inguinal hernia repair History of cholecystectomy (07/04/17) History of herniorrhaphy History of third molar tooth extraction Hx of breast implants, bilateral Status post endoscopy Social History marital status: household members: spouse and family occupational status: employed Smoking Status: Current some day smoker alcohol intake: current substance use type: does not use Smoking Status: Current some day smoker tobacco type: cigarettes alcohol intake frequency: a few times a week Substance Use Type: does not use Exam Initial Vital Signs Initial Vital Signs: Vital Signs Temperature 97.8 F 11/01/22 15:40 Pulse Rate 65 11/01/22 15:40 Respiratory Rate 16 11/01/22 15:40 Blood Pressure 115/65 11/01/22 15:40 Pulse Oximetry 99 11/01/22 15:40 Oxygen Delivery Method Room Air 11/01/22 15:40 Const General: cooperative, comfortable and No ill appearing HENMT Head: normal to inspection and normocephalic Chest Other: Deferred breast exam Resp Effort & Inspection: normal respiratory effort Cardio Rate: regular rate Skin General: no rashes or lesions noted Neuro General: patient alert, patient awake and moves all extremities Course Vital Signs Vital signs: Vital Signs - 8 hr 11/01/22 19:50 Pulse Rate 74 Respiratory Rate 18 Blood Pressure 129/58 L Pulse Oximetry 100 Oxygen Delivery Method Room Air MDM - Chest Pain Lab Data Attestation: I reviewed the patient's lab results. Labs: Urine Dip Bedside Urine Glucose Negative Bedside Urine Bilirubin - Negative Bedside Urine Ketone - Negative Urine Specific [place] 1.030 Bedside Urine Occult Blood - Negative Bedside Urine pH 6.0 Bedside Urine Protein - Negative Bedside Urine Urobilinogen - Negative Bedside Urine Nitrite - Negative Bedside Urine Leukocytes - Negative Esterase MDM Narrative Medical decision making narrative: Patient has had a fairly extensive workup of her chest a comfort to include x- rays and a CT scan. Patient is here in the emergency department today not because of any new symptoms but because the MRI as an outpatient was denied by insurance and she states she was told to come to the emergency department by her primary provider to get this MRI performed. I have low suspicion for ACS. Low suspicion for pneumonia. We did defer a breast exam today. Unfortunately were unable to get the MRI here in the emergency department. I do not have MRI capability at this time of day plus there is not an emergent indication to get the MRI. I am not questioning that she potentially could need advanced imaging however she is going to have to talk with her primary provider about Re submitting the request to her insurance company to have it approved as a outpatient. Discharge Plan Departure Patient Disposition: Home Clinical Impression: Breast pain, right Activity Restrictions/Additional Instructions: Unfortunately I am unable to get an MRI for you this evening. This does not mean that you do not need further imaging however it will need to come from your primary care provider. I do recommend you contact your primary doctor for a follow-up. Return to the emergency department for new or worsening symptoms. Prescriptions: No Action valacyclovir 500 mg tablet 500 mg PO BID PRN (Reason: Cold Sores) Qty: 90 0RF ibuprofen 800 mg tablet 800 mg PO Q8H PRN (Reason: pain) Qty: 30 0RF Referrals: Susan Gonzalez ARNP [Primary Care Provider] - Stand Alone Forms: Patient Portal/API
== END 2022-11-01 20:09 | disposition home or self-care (01) ==
PROVIDERS: Emergency Provider Emergency Medicine; Family Provider Nurse Practitioner; PCP Nurse Practitioner
DX: N64.4 Mastodynia (principal)
CPT/HCPCS: 81003; 99282

== ENCOUNTER → 2022-11-10 12:01 | Outpatient (CLI) | payer OTHER, SELFPAY ==
[2021-05-08 18:49] VITALS: BMI 32.5
--- NOTE | 2022-11-10 12:02 | DI.US.S_ITS ---
ULTRASOUND OF LEFT BREAST AND AXILLA: 11/10/2022 CLINICAL: Patient returns today to evaluate a focal asymmetry in the left breast. Comparison is made to exams dated: 11/10/2022 ultrasound, 11/10/2022 mammogram, 08/26/2021 mammogram, 10/23/2019 ultrasound, 10/23/2019 mammogram, and 02/15/2019 mammogram - [facility]. Real-time and continuous wave Doppler ultrasound of the left breast axilla were performed. No significant abnormalities were seen sonographically in the left axilla. IMPRESSION: NEGATIVE There is no sonographic evidence of malignancy. No enlarged left axillary nodes. Exam findings were conveyed to the patient. Patient is advised to monitor for significant change. Clinical follow-up as needed. Breast MRI could also be considered for further evaluation. A 1 year screening mammogram is recommended. This exam was interpreted at Station ID: [id number]. Electronically Signed By: Jordon Easton M.D. [facility] [place]/:11/10/2022 13:49:42 Entry: - 11/11/2022 12:10:21 Ultrasound BI-RADS: 1 Negative
--- NOTE | 2022-11-10 12:02 | DI.US.S_ITS ---
LIMITED ULTRASOUND OF RIGHT BREAST AND AXILLA: 11/10/2022 CLINICAL: Patient returns today to evaluate a focal asymmetry in the right breast. Comparison is made to exams dated: 11/10/2022 mammogram, 08/26/2021 mammogram, 10/23/2019 mammogram, and 02/15/2019 mammogram - [facility]. Real-time ultrasound of the right breast 1-5 o'clock, and axilla regions was performed. Zarate scale images of the real-time examination were reviewed. No significant abnormalities were seen sonographically in the right breast or the right axilla. IMPRESSION: NEGATIVE There is no sonographic evidence of malignancy. No mass or cyst in the region of pain. No enlarged right axillary lymph nodes. Exam findings were conveyed to the patient. Patient is advised to monitor for significant change. Clinical follow-up as needed. Breast MRI could be considered for further evaluation. A 1 year screening mammogram is recommended. This exam was interpreted at Station ID: [id number]. Electronically Signed By: Jordon Easton M.D. [facility]/:11/10/2022 13:59:42 letter sent: Normal Exam Ultrasound BI-RADS: 1 Negative
--- NOTE | 2022-11-10 12:02 | DI.MG.S_ITS ---
BILATERAL DIGITAL DIAGNOSTIC MAMMOGRAM 3D/2D WITH AUGMENTATION: 11/10/2022 CLINICAL: Mastodynia breast implant status. Comparison is made to exams dated: 08/26/2021 mammogram, 10/23/2019 mammogram, and 07/09/2018 mammogram - [facility]. Both breasts are heterogeneously dense, which may obscure small masses (category c / 51-75% glandular tissue). No significant masses, calcifications, or other findings are seen in either breast. Bilateral saline implants are intact. IMPRESSION: INCOMPLETE: NEEDS ADDITIONAL IMAGING EVALUATION No mammographic evidence of malignancy. Bilateral saline implants are intact. Patient reports pain at the medial right breast/chest wall and bilateral axillary pain. A targeted ultrasound is recommended and will immediately follow. Based on the Tyrer Cuzick model (a risk assessment model) the patient's lifetime risk is 10.1% and her 10 year risk is 2.7%. According to the ACR, ACS, and NCCN guidelines, an annual breast MRI exam along with mammogram is recommended if the patient's lifetime risk is 20% or greater. This exam was interpreted at Station ID: [id number]. NOTE: For mammograms, a report in lay terms will be sent to the patient. Approximately 15% of breast malignancies will not be visualized mammographically. In the management of a palpable breast mass, a negative mammogram must not discourage biopsy of a clinically suspicious lesion. Electronically Signed By: Jordon Easton M.D. [facility] [place]/:11/10/2022 13:34:50 ACR BI-RADS Category 0: Incomplete [id number]
== END ==
PROVIDERS: Family Provider Nurse Practitioner; PCP Nurse Practitioner; Referring Provider Nurse Practitioner; Visit Provider Nurse Practitioner
DX: N64.4 Mastodynia (principal); M79.629 Pain in unspecified upper arm; Z98.82 Breast implant status; R92.2 Inconclusive mammogram
CPT/HCPCS: 76642; 77066; G0279

== ENCOUNTER 2022-11-26 14:14 | Emergency (ER) | payer OTHER, SELFPAY ==
[2021-05-08 18:49] VITALS: BMI 32.5
[2022-11-26 14:20] VITALS: BP 113/70; PULSE 85; RESP 18; TEMP 36.8; O2SAT 98; BMI 33.5
--- NOTE | 2022-11-26 14:27 | DI.RAD.S_ITS ---
PROCEDURE: XR THORACIC SPINE 3V INDICATIONS: fall . pain TECHNIQUE: 3 views of the thoracic spine were acquired. COMPARISON: None. FINDINGS: Bones: No fractures or dislocations. No suspicious bony lesions. 12 pairs of ribs are noted, and appear intact where visualized. Soft tissues: No paravertebral stripe thickening. Surgical clips in right upper quadrant compatible with prior cholecystectomy. IMPRESSION: Thoracic spine without acute fracture or traumatic malalignment. Dictated by: Berto Whitney M.D. on 11/26/2022 at 14:33 Approved by: Berto Whitney M.D. on 11/26/2022 at 14:34
--- NOTE | 2022-11-26 16:05 | PC.NURSE ---
Addendum entered by Leilani Lema R.N. 11/26/22 16:13: pt went back to waiting area. Original Note: during triage assessment, pt reported that she forgot she had a concealed weapon on. stated it was not loaded. her was outside triage eating pizza. I told her that we are not allowed to have guns in the hospital. I asked her to give it to her . She stated she would do that. pt back to triage area. was with patient. xray was ordered.
--- NOTE | 2022-11-26 17:45 | ED_ITS ---
HPI - Fall General Chief Complaint: Fall Stated Complaint: fall/ back injury Time Seen by Provider: 11/26/22 17:31 Source: patient Mode of arrival: Family Vehicle Limitations: no limitations History of Present Illness HPI Narrative: This is a 51-year-old female who comes to the emergency department with complaint of fall. Patient states she tripped sort of stumbled fell onto her left knee and then onto her left side. Patient states she is had persistent pain in her left thoracic back lateral to the spine. She states worse with movement particularly sitting up straight. Patient states not worse with deep i nhalation. She denies hitting her head, no neck pain, no lower lumbar pain. No shortness of breath. Denies any radiation. No nausea or vomiting. No abdominal pain, no flank pain. No loss of bowel or bladder control. No numbness, tingling or weakness. Pain does not radiate elsewhere. Patient has had mild back issues in the past but not anything this extensive. She is not taken anything for pain today. No bruising or skin changes she is aware of. She states no daily medications. Has had prior orthopedic surgery, cholecystectomy. No known drug allergies. Positive for tobacco, occasional alcohol, no illicit. She is accompanied by her . Related Data Previous Rx's Medication Instructions Recorded valacyclovir 500 mg tablet 500 mg PO BID PRN Cold Sores #90 12/11/20 tabs ibuprofen 800 mg tablet 800 mg PO Q8H PRN pain #30 tabs 05/09/21 hydrocodone 5 mg-acetaminophen 325 1 tab PO Q6H PRN pain #10 tabs 11/26/22 mg tablet Allergies Allergy/AdvReac Type Severity Reaction Status Date / Time No Known Drug Allergies Allergy Verified 11/26/22 14:26 Review of Systems Review of Systems ROS Unobtainable: All systems reviewed & are unremarkable except as noted in HPI and below Patient History Medical History Anxiety disorder due to general medical condition with panic attack Atypical chest pain (~12/2016) Depression Diverticula of intestine Elevated liver enzymes Herpes Hypercholesterolemia Murmur Surgical History History of bilateral inguinal hernia repair History of cholecystectomy (07/04/17) History of herniorrhaphy History of third molar tooth extraction Hx of breast implants, bilateral Status post endoscopy Social History marital status: household members: spouse and family occupational status: employed Smoking Status: Current some day smoker alcohol intake: current substance use type: does not use Smoking Status: Current some day smoker tobacco type: cigarettes alcohol intake frequency: a few times a week Substance Use Type: does not use Exam Narrative Exam Narrative: GEN: Patient appears in mild distress. HEAD: No evidence of trauma, no raccoon/Freeman sign. NECK: Nontender, painless range of motion, trachea midline Negative Nexus criteria, there is no midline line tenderness, distracting injury, altered mental status, neuro deficit, recent EtOH. EYES: PERRLA, EOMI ENT: External inspection normal, trachea is midline, Nares are clear, no septal hematoma, no dental or oral injury, airway is normal and with normal occlusion. RESP: Chest is nontender and has symmetric movement, no ecchymosis, breath sounds are normal no crackles, wheezes or rales CVS: Heart sounds are normal, no murmur noted, No JVD. ABG/GI: Nontender, soft, normal bowel sounds, no distention, no organomegaly. NEURO: Oriented AOx3, neuro is grossly intact, sensation and motor is normal all 4 extremities moving, cranial nerves II through XII are intact, GCS is 15 PSYCH: Normal mood and affect SKIN: Intact, warm and dry, no crepitus and without decubitus BACK: No CVA tenderness, no vertebral tenderness, patient is tender laterally to the thoracic spine around the T3-4 region, patient has range of motion present but is more uncomfortable with movement. Patient does have some increased pain with palpation of the lateral ribs in general but no point tenderness. There is some slight erythema on the posterior back on the left lateral thoracic region patient did have an ice pack in his area just prior to evaluation no ecchymosis. No step-off's, no crepitus EXT: Atraumatic, hips are nontender, no pedal edema, normal color and temperature, normal range of motion of extremities with normal tendon exam, 2+ pulses in all four extremities Initial Vital Signs Initial Vital Signs: Vital Signs Temperature 98.3 F 11/26/22 14:20 Pulse Rate 85 11/26/22 14:20 Respiratory Rate 18 11/26/22 14:20 Blood Pressure 113/70 11/26/22 14:20 Pulse Oximetry 98 11/26/22 14:20 Oxygen Delivery Method Room Air 11/26/22 14:20 Course Orders Ordered: Discontinued Medications Hydrocodone Bitart/Acetaminophen (Hydrocodone/Acet 5/325 Tablet) 2 tab PO NOW ONE Stop: 11/26/22 17:57 Last Admin: 11/26/22 17:59 Dose: 2 tab Documented By: VITALIY Hydrocodone Bitart/Acetaminophen (Hydrocodone/Acet 5/325 Prepack) 1 bottle MISC SEEINSTR ONE Stop: 11/26/22 18:58 Last Admin: 11/26/22 19:07 Dose: 1 bottle Documented By: DEVON Vital Signs Vital signs: Vital Signs - 8 hr 11/26/22 14:20 Temperature 98.3 F Pulse Rate 85 Respiratory Rate 18 Blood Pressure 113/70 Pulse Oximetry 98 Oxygen Delivery Method Room Air MDM - Fall Imaging Data thoracic xray: Radiologist's Impression: [address] [address] XRay Report Signed Patient: Molly Rosas MR#: [id number] : 1970 Acct:[id number] Age/Sex: 51 / F Date of Service: 11/26/22 Loc: ED Accession Number: [id number] ?? Procedure: XR thoracic spine 3V Ordering Provider: Rosie Montanez D.O. PROCEDURE:? XR THORACIC SPINE 3V ? INDICATIONS:? fall . pain ? TECHNIQUE:? 3 views of the thoracic spine were acquired.? ? COMPARISON:? None. ? FINDINGS:? ? Bones:? No fractures or dislocations.? No suspicious bony lesions.? 12 pairs of ribs are noted, and appear intact where visualized.? ? Soft tissues:? No paravertebral stripe thickening.? Surgical clips in right upper quadrant compatible with prior cholecystectomy. ? ? IMPRESSION:? Thoracic spine without acute fracture or traumatic malalignment. ? ? Dictated by: Berto Whitney M.D. on 11/26/2022 at 14:33 ? ? Approved by: Berto Whitney M.D. on 11/26/2022 at 14:34?? Chest x-ray: Radiologist's Impression: Molly Rosas??51??F??1970 ? Allergy/Adv: No Known Drug Allergies Close Chest X-Ray (Signed) Berto Whitney - 11/26/22 Thoracic Spine X-Ray (Signed) Berto Whitney - 11/26/22 Mammogram Diagnostic (Signed) Call,Jordon - 11/10/22 Breast Ultrasound (Signed) Call,Jordon - 11/10/22 Breast Ultrasound (Signed) Call,Jordon - 11/10/22 Chest CTA (Signed) Martin Barreto - 10/15/22 Chest X-Ray (Signed) Martin Barreto - 10/15/22 Shoulder MRI (Signed) TannaGil pritchardchaparrita - 06/03/22 Mammogram Screening (Signed) Call,Jordon - 08/26/21 Chest X-Ray (Signed) Buster Marie - 08/03/21 Telemetry Strips 07/13/21 Chest X-Ray (Signed) Ling Alvares - 05/11/[address] (Signed) Ling Alvares - 05/11/21 Telemetry Strips 05/08/21 Knee X-Ray (Signed) Alessandro Mitchell - 05/08/21 Ankle X-Ray (Signed) RoscAlessandro peres - 05/08/21 Ankle X-Ray (Cancelled) 05/08/21 Tibia/Fibula X-Ray (Signed) Pasquale Peters - 05/08/21 Tibia/Fibula X-Ray (Signed) RoschmAlessandro camarena - 05/08/21 Chest X-Ray (Signed) Heladio Carlson - 01/05/21 Mammogram Diagnostic (Signed) Lexus Fowler - 10/23/19 Breast Ultrasound (Signed) Lexus Fowler - 10/23/[address] (Signed) Martin Barreto - 07/03/19 Mammogram Diagnostic (Signed) Call,Jordon - 02/15/19 Abdomen/Pelvis CT (Signed) Sunni Mckoy - 08/30/18 Abdomen Ultrasound (Signed) Juan Ramon Arshad - 08/15/18 Mammogram, Additional Views (Signed) Juan Ramon Arshad - 07/18/18 Breast Ultrasound (Signed) Juan Ramon Arshad - 07/18/18 Abdomen Ultrasound (Signed) Aldo Magana - 07/18/18 Mammogram Screening (Signed) Berto Whitney - 07/09/18 Launch?Image [address] [address] XRay Report Signed Patient: Molly Rosas MR#: [id number] : 1970 Acct:[id number] Age/Sex: 51 / F Date of Service: 11/26/22 Loc: ED Accession Number: [id number] ?? Procedure: XR chest 1V Ordering Provider: Rosie Montanez D.O. PROCEDURE:? XR CHEST 1V ? INDICATIONS:? left chest pain pain ? TECHNIQUE:? One view of the chest was acquired.? ? COMPARISON:? [facility], CR, XR CHEST 1V, 10/15/2022, 22:22. ? FINDINGS:? ? Surgical changes and devices:? None.? ? Lungs and pleura:? Lungs are clear.? No pleural effusions or pneumothorax.? ? Mediastinum:? Mediastinal contours appear normal.? Heart size is normal.? ? Bones and chest wall:? No suspicious bony lesions.? Overlying soft tissues appear unremarkable.? ? IMPRESSION:? Stable radiographic evaluation of the chest without acute cardiopulmonary abnormalities or focal airspace disease. ? Dictated by: Berto Whitney M.D. on 11/26/2022 at 18:26 ? ? Approved by: Berto Whitney M.D. on 11/26/2022 at 18:27?? [facility] Narrative Medical decision making narrative: This is a 51-year-old female presents with complaint of ground level fall with a twisting injury onto her left side. Complains of left posterior thoracic pain. She does have some increased pain when I palpate laterally. Suspect possible nondisplaced rib fracture she has no point tenderness over the back itself. Patient's exam is overall reassuring patient would very much like a chest x-ray, discussed no obvious rib fractures and if nondisplaced would not be seen on the x-ray. Discharge Plan Departure Patient Disposition: Home Clinical Impression: Back pain, thoracic Instructions: DI for Thoracic Back Pain Activity Restrictions/Additional Instructions: Your imaging does not show any obvious break or fracture. Your chest xray is pending. Your thoracic spine xray does not show any obvious fracture. You may take 1-2 tablets of [place] every 6 hours as needed for pain. This medication can make you sleepy do not drive, perform hazardous activities or make any major decisions while taking it. This medication will make you constipated please take a stool softener once to twice daily until stools are soft and regular. You can take ibuprofen up to 600 mg every 6 hours with this medication. [facility] [place]. Please return for rapidly worsening pain, shortness of breath, lightheadedness or passing out, new numbness, tingling weakness loss of bowel or bladder control or other new or concerning changes. Prescriptions: New hydrocodone-acetaminophen 5-325 mg tablet 1 tab PO Q6H PRN (Reason: pain) Qty: 10 0RF No Action valacyclovir 500 mg tablet 500 mg PO BID PRN (Reason: Cold Sores) Qty: 90 0RF ibuprofen 800 mg tablet 800 mg PO Q8H PRN (Reason: pain) Qty: 30 0RF Referrals: Susan Gonzalez ARNP [Primary Care Provider] - Stand Alone Forms: Patient Portal/API
--- NOTE | 2022-11-26 17:50 | PC.NURSE ---
Patient ambulated from waiting room to side door of room 5. Did appear to be painful to walk but was able to ambulate holding husbands hand. Notified patient during assessment that x-rays were negative for fractures and dislocations, patient appeared distressed by this information. Notified provider of conversation this RN had with patient.
--- NOTE | 2022-11-26 17:56 | DI.RAD.S_ITS ---
PROCEDURE: XR CHEST 1V INDICATIONS: left chest pain pain TECHNIQUE: One view of the chest was acquired. COMPARISON: [facility], CR, XR CHEST 1V, 10/15/2022, 22:22. FINDINGS: Surgical changes and devices: None. Lungs and pleura: Lungs are clear. No pleural effusions or pneumothorax. Mediastinum: Mediastinal contours appear normal. Heart size is normal. Bones and chest wall: No suspicious bony lesions. Overlying soft tissues appear unremarkable. IMPRESSION: Stable radiographic evaluation of the chest without acute cardiopulmonary abnormalities or focal airspace disease. Dictated by: Berto Whitney M.D. on 11/26/2022 at 18:26 Approved by: Berto Whitney M.D. on 11/26/2022 at 18:27
[2022-11-26] MEDS: HYDROCODONE/ACET 5/325 TABLET 2 TAB PO (17:59)
[2022-11-26] MEDS: HYDROCODONE/ACET 5/325 PREPACK 1 BOTTLE MISC (19:07)
== END 2022-11-26 19:14 | disposition home or self-care (01) ==
PROVIDERS: Emergency Provider Emergency Medicine; Family Provider Nurse Practitioner; PCP Nurse Practitioner
DX: M54.6 Pain in thoracic spine (principal); R07.9 Chest pain, unspecified; W18.30XA Fall on same level, unspecified, initial encounter
CPT/HCPCS: 71045; 72072; 99283

== ENCOUNTER → 2023-05-11 14:53 | Outpatient (CLI) | payer OTHER, SELFPAY ==
[2021-05-08 18:49] VITALS: BMI 32.5
--- NOTE | 2023-05-11 14:54 | DI.US.S_ITS ---
PROCEDURE: US PELVIC COMPLETE INDICATIONS: Menorrhagia TECHNIQUE: Real-time scanning was performed of the pelvic organs, with image documentation. Additional endovaginal scanning was necessary due to incomplete visualization of the adnexal and endometrial structures by transabdominal scanning. COMPARISON: [facility], , PELVIC COMPLETE, 07/13/2016, 13:06. FINDINGS: Uterus: Uterus is anteverted and normal in size at 8.8 x 5.1 x 5.1 cm. The myometrium is homogeneous. The endometrium measures 1.5 cm combined thickness. Ovaries: Right ovary not visualized. Left ovary measures 3.8 x 3.0 x 3.5 cm for calculated volume of 21.0 cm. 2.5 cm simple left ovarian cyst present. Left ovary has less than 12 follicles Other: No pathologic free abdominal or pelvic fluid. IMPRESSION: Left ovarian simple cyst Approved by: Geoffrey Newell M.D. on 05/11/2023 at 19:37
== END ==
PROVIDERS: Family Provider Nurse Practitioner; PCP Nurse Practitioner; Referring Provider Nurse Practitioner; Visit Provider Nurse Practitioner
DX: N92.0 Excessive and frequent menstruation with regular cycle (principal); N83.292 Other ovarian cyst, left side
CPT/HCPCS: 76830; 76856; 93976

== ENCOUNTER → 2023-10-05 15:22 | Outpatient (CLI) | payer OTHER, SELFPAY ==
[2021-05-08 18:49] VITALS: BMI 32.5
--- NOTE | 2023-10-05 15:25 | DI.RAD.S_ITS ---
PROCEDURE: XR KNEE LT 3V INDICATIONS: joint pain TECHNIQUE: 3 views of the knee were acquired. COMPARISON: [facility], CR, XR KNEE LT 1TO2V, 05/08/2021, 9:14. FINDINGS: Bones: No fractures or dislocations. No suspicious bony lesions. Intact intramedullary levi of the tibia. Soft tissues: No joint effusion. No suspicious soft tissue calcifications. IMPRESSION: No significant degenerative change. No acute bony abnormality. Dictated by: Odilon Szymanski M.D. on 10/05/2023 at 21:45 Approved by: Odilon Szymanski M.D. on 10/05/2023 at 21:45
--- NOTE | 2023-10-05 15:25 | DI.RAD.S_ITS ---
PROCEDURE: XR FOOT RT MIN 3V INDICATIONS: joint pain TECHNIQUE: 3 views of the foot were acquired. COMPARISON: [facility], , FOOT 3V RIGHT, 04/10/2009, 15:21. FINDINGS: Bones: No fractures or dislocations. No significant arthritic change. No suspicious bony lesions. Soft tissues: No tibiotalar joint effusion. Achilles tendon appears normal. IMPRESSION: Unremarkable right foot films. Dictated by: Odilon Szymanski M.D. on 10/05/2023 at 21:46 Approved by: Odilon Szymanski M.D. on 10/05/2023 at 21:46
--- NOTE | 2023-10-05 15:25 | DI.RAD.S_ITS ---
PROCEDURE: XR FOOT LT MIN 3V INDICATIONS: joint pain TECHNIQUE: 3 views of the foot were acquired. COMPARISON: [facility], , FOOT 3V RIGHT, 04/10/2009, 15:21. FINDINGS: Bones: No fractures or dislocations. No significant foot degenerative change. No suspicious bony lesions. Note is made of distal tibial hardware. Soft tissues: No tibiotalar joint effusion. Achilles tendon appears normal. IMPRESSION: No acute bony abnormality. No significant degenerative change of the foot. Dictated by: Odilon Szymanski M.D. on 10/05/2023 at 21:44 Approved by: Odilon Szymanski M.D. on 10/05/2023 at 21:45
--- NOTE | 2023-10-05 15:25 | DI.RAD.S_ITS ---
PROCEDURE: XR KNEE RT 3V INDICATIONS: joint pain TECHNIQUE: 3 views of the knee were acquired. COMPARISON: [facility], CR, XR KNEE LT 1TO2V, 05/08/2021, 9:14. FINDINGS: Bones: No fractures or dislocations. No suspicious bony lesions. Early patellofemoral degenerative change. Soft tissues: No joint effusion. No suspicious soft tissue calcifications. IMPRESSION: Early patellofemoral degenerative change. No acute bony abnormality. Dictated by: Odilon Szymanski M.D. on 10/05/2023 at 21:46 Approved by: Odilon Szymanski M.D. on 10/05/2023 at 21:47
[2023-10-05 17:31] LABS: Alanine Aminotransferase 37 IU/L (<35); Albumin 4.5 g/dL (3.5-5.0); Albumin Globulin Ratio 1.6 (1.0-2.8); Alkaline Phosphatase 65 U/L (38-126); Aspartate Aminotransferase 31 IU/L (14-36); BUN Creatinine Ratio 29.6 (6-22); Bilirubin Total 0.4 mg/dL (0.2-1.3); Blood Urea Nitrogen 21 mg/dL (7-17); C-Reactive Protein Quant < 0.5 mg/dL (<1.0); Calcium 9.3 mg/dL (8.4-10.2); Carbon Dioxide 27 mmol/L (22-32); Chloride 105 mmol/L (98-107); Estimated Glomerular Filt Rate > 60 mL/min (>60); Globulin 2.8 g/dL (1.7-4.1); Glucose 88 mg/dL (70-100); HEMOLYSIS < 15 (0-50); Sodium 139 mmol/L (137-145); Total Protein 7.3 g/dL (6.3-8.2)
[2023-10-05 17:34] LABS: Add Manual Diff / Slide Review NO; Basophils Absolute Auto 0 /uL (0-100); Basophils Percent Auto 0.6 % (0-2); Eosinophils Absolute Auto 100 /uL (0-450); Eosinophils Percent Auto 1.7 % (2-4); Hematocrit 40.6 % (36-46); Hemoglobin 13.8 g/dL (12.0-16.0); Lymphocytes Absolute Auto 3000 /uL (1100-4500); Lymphocytes Percent Auto 35.1 % (25-40); Mean Corpuscular HGB Conc 33.9 % (30-36); Mean Corpuscular Hemoglobin 29.2 PG (26-34); Mean Corpuscular Volume 86.1 fL (80-100); Monocytes Absolute Auto 500 /uL (0-900); Monocytes Percent Auto 6.1 % (3-14); Neutrophils Absolute Auto 4800 /uL (1500-7000); Neutrophils Percent Auto 56.5 % (50-75); Platelet Count 340 X10^3/uL (150-400); Red Blood Cell Count 4.71 X10^6/uL (4.0-5.2); Red Cell Distribution Width 13.1 % (11.6-14.8); White Blood Cell Count 8.5 X10^3/uL (4.5-11.0)
[2023-10-05 17:38] LABS: Follicle Stimulating Hormone 57.2 mIU/mL; Free T3, Triiodothyronine Free 5.33 pg/mL (2.77-5.27); Free T4, Direct Thyroxine 0.89 ng/dL (0.78-2.19)
[2023-10-05 17:57] LABS: Thyroid Stimulating Hormone 1.63 uIU/mL (0.47-4.68)
[2023-10-05 18:07] LABS: Erythrocyte Sedimentation Rate 13 MM/HR (0-20)
== END ==
PROVIDERS: Family Provider Nurse Practitioner; PCP Nurse Practitioner; Referring Provider Nurse Practitioner; Visit Provider Nurse Practitioner
DX: M79.89 Other specified soft tissue disorders (principal); M25.561 Pain in right knee; M25.562 Pain in left knee; M25.571 Pain in right ankle and joints of right foot; M25.572 Pain in left ankle and joints of left foot; G89.29 Other chronic pain; R63.5 Abnormal weight gain; M25.50 Pain in unspecified joint; Z87.81 Personal history of (healed) traumatic fracture
CPT/HCPCS: 36415; 73562; 73630; 80053; 83001; 84439; 84443; 84481; 85025; 85651; 86140

== ENCOUNTER → 2023-10-30 16:37 | Outpatient (CLI) | payer OTHER, SELFPAY ==
[2021-05-08 18:49] VITALS: BMI 32.5
[2023-10-30 18:09] LABS: Rheumatoid Factor < 8.6 IU/mL (<12.0)
[2023-10-30 18:10] LABS: Procalcitonin < 0.030 ng/mL (<0.5)
[2023-10-31 23:15] LABS: Thyroid Peroxidase Antibodies 12 IU/mL (0-34)
[2023-11-02 18:07] LABS: ANA Screen, IFA Positive (.)
== END ==
PROVIDERS: Family Provider Nurse Practitioner; PCP Nurse Practitioner; Referring Provider Nurse Practitioner; Visit Provider Nurse Practitioner
DX: D89.89 Other specified disorders involving the immune mechanism, not elsewhere classified (principal); M25.561 Pain in right knee; M25.562 Pain in left knee; G89.29 Other chronic pain; M25.571 Pain in right ankle and joints of right foot; M25.572 Pain in left ankle and joints of left foot; M79.89 Other specified soft tissue disorders; R70.1 Abnormal plasma viscosity
CPT/HCPCS: 36415; 84145; 85810; 86038; 86376; 86430

== ENCOUNTER → 2023-12-07 10:47 | Outpatient (CLI) | payer BC, SELFPAY ==
[2021-05-08 18:49] VITALS: BMI 32.5
--- NOTE | 2023-12-07 10:48 | DI.RAD.S_ITS ---
PROCEDURE: FL BARIUM SWALLOW INDICATIONS: Difficulty swallowing; change in voice COMPARISON: None. FINDINGS: Function: There is normal esophageal peristalsis. Mild gastroesophageal reflux and small hiatal hernia. There is normal transit of a calibrated barium tablet through the esophagus into the stomach. Morphology: Air-contrast images demonstrate normal mucosal morphology. Single contrast views show no esophageal strictures, extrinsic mass effects, or diverticula. Limited images of the stomach demonstrate normal appearance. IMPRESSION: Mild gastroesophageal reflux and small hiatal hernia. Dictated by: Sidney Barbosa M.D. on 12/07/2023 at 16:46 Approved by: Sidney Barbosa M.D. on 12/07/2023 at 16:47
== END ==
PROVIDERS: Family Provider Nurse Practitioner; PCP Nurse Practitioner; Referring Provider Physician Assistant; Visit Provider Physician Assistant
DX: K44.9 Diaphragmatic hernia without obstruction or gangrene (principal); K21.9 Gastro-esophageal reflux disease without esophagitis; R13.10 Dysphagia, unspecified; R49.9 Unspecified voice and resonance disorder
CPT/HCPCS: 74220

== ENCOUNTER → 2025-03-03 07:35 | Outpatient (CLI) | payer BC, SELFPAY ==
[2021-05-08 18:49] VITALS: BMI 32.5
--- NOTE | 2025-03-03 07:37 | DI.CT.S_ITS ---
PROCEDURE: CT ABDOMEN PELVIS W CON INDICATIONS: hx bilateral femoral hernia repair, recurrent BLQ mass/sx TECHNIQUE: After the administration of intravenous contrast, axial sections acquired from the lung bases to the pubic symphysis. Coronal and sagittal reformats were performed. For radiation dose reduction, the following was used: automated exposure control, adjustment of mA and/or kV according to patient size. COMPARISON: [facility], CT, CT ABDOMEN PELVIS W CON, 08/30/2018, 14:26. FINDINGS: Image quality: Diagnostic. Lower Chest: Small hiatal hernia. Bilateral breast implants. ABDOMEN: Liver: No solid mass. Gallbladder: Surgically absent Biliary ducts: No biliary dilation. Pancreas: No ductal dilation. Spleen: Size is within normal limits. Adrenal Glands: No adrenal nodules. Kidneys and Ureters: No hydronephrosis. No solid mass. No complex renal cystic lesion which requires follow up. Stomach and Bowel: Normal colonic caliber, without significant wall thickening. Normal caliber appendix Peritoneum: No abnormal intraperitoneal fluid. No free air. Ventral Wall: No significant ventral hernia. Abdominal Nodes: No retroperitoneal or mesenteric adenopathy by size criteria. Vessels: Aorta and inferior vena cava are normal in size. PELVIS: Pelvic Organs: Unremarkable. Bladder: No bladder wall thickening, accounting for underdistention. Pelvic Nodes: No enlarged lymph nodes. Miscellaneous: Right inguinal hernia containing loops of bowel. No evidence of obstruction. Bones: No aggressive osseous abnormality. IMPRESSION: Right inguinal hernia containing loops of bowel without evidence of incarceration. Approved by: Mandie Huang M.D.,Ph.D. on 03/04/2025 at 23:44
== END ==
LOC: CT 07:36
PROVIDERS: Family Provider Nurse Practitioner; PCP Family Medicine; Referring Provider Family Medicine; Visit Provider Obstetrics & Gynecology
DX: K40.90 Unilateral inguinal hernia, without obstruction or gangrene, not specified as recurrent (principal); R10.20 Pelvic and perineal pain unspecified side; Z90.49 Acquired absence of other specified parts of digestive tract; Z87.19 Personal history of other diseases of the digestive system; Z98.890 Other specified postprocedural states
CPT/HCPCS: 74177; Q9967

== ENCOUNTER 2025-04-01 10:16 | Day surgery (SDC) | payer BC, SELFPAY ==
[2021-05-08 18:49] VITALS: BMI 32.5
--- NOTE | 2025-04-01 06:46 | PM.PREOP ---
Pre-operative Note Interval Note History & Physical reviewed/Exam performed by Physician: Yes Changes to H&P: No ASA Class (for procedural sedation): II
[2025-04-01 10:36] VITALS: BP 93/67; PULSE 84; RESP 18; TEMP 36.1; O2SAT 97
[2025-04-01] MEDS: LACTATED RINGERS 1,000 ML 42 ML IV (10:45)
[2025-04-01] MEDS: FAMOTIDINE 20 MG/2 ML VIAL IV (10:46)
[2025-04-01] MEDS: ACETAMINOPHEN 325 MG TABLET 975 MG PO (10:46)
--- NOTE | 2025-04-01 11:18 | SUR.OPER ---
Supine on padded OR bed with pink positioner pad under patient, head on pillow, arms padded and tucked at sides, IV site and ports protected, purple strap across chest, legs uncrossed, safety belt at thigh, tape over blanket over lower legs .
--- NOTE | 2025-04-01 11:49 | PM.OP.1 ---
Operative Date/Time/Diagnoses Date of procedure: 04/01/25 Time of procedure: 11:50 Pre-op diagnosis: Recurrent right femoral hernia Post-op diagnosis: same Procedure & Clinicians Procedure: Laparoscopic repair recurrent right femoral hernia with mesh (TEP) Same procedure(s) as scheduled: Yes Indications: 54yo F with recurrent right femoral hernia. Surgeon: Mikhail Rivera Assisted?: Yes Retail Selling Specialist: Herb Weaver Anesthesia Type: General Operative Notes Findings: Recurrent right femoral hernia, without evidence for prior repair Closure Type: primary Specimen(s): none sent Prosthetic devices, grafts, tissues, transplants, or devices: mesh Applied: other (mesh) Estimated Blood Loss (mL): 5 Blood products transfused: none Procedure in detail: After informed consent and satisfactory general endotracheal anesthesia, the groins were shaved, prepped and draped in the usual sterile manner.? The patient received appropriate preoperative antibiotics and DVT prophylaxis.? Surgical time-out was performed with all team members in agreement.? The correct side was marked in the preoperative holding area.? The preperitoneal space was entered via an infraumbilical incision.? An 0 Vicryl [id number] suture was placed on the anterior rectus sheath incision lateral to midline, ipsilateral to the side of the hernia.? The rectus muscle was retracted laterally and the preperitoneal space was dissected with a blunt 10 mm instrument.? The 10 mm trocar was inserted and the preperitoneal space was insufflated to a pressure of 12 mmHg with carbon dioxide gas.? This allowed direct visual placement of two 5 mm trocars in the suprapubic midline.? The patient was placed in Trendelenburg position.? We further dissected the preperitoneal space including the femoral, direct and indirect spaces.? We dissected out lateral and an ilioinguinal nerve block was performed under direct vision by injecting 10 cc of 0.5% Marcaine with epinephrine into the transversus muscle under direct vision 2 fingerbreadths medial to the anterior superior iliac spine.? A total of 30 cc of 0.5% Marcaine with epinephrine was used.? The remainder was injected into the musculature at the end of the procedure for postoperative analgesia.? Once the preperitoneal space was dissected free we noticed a femoral hernia. There was no evidence for a Tj's repair that was performed by another surgeon. The prior repair did not address the femoral defect. We reduced the femoral hernia completely, which contained a large volume of preperitoneal fat. There was a moderate sized indirect inguinal hernia sac as well that was dissected proximally. The round ligament was so adherent to the peritoneal sac it required division with cautery. This enabled the mesh to lay in a flat position. No further hernia defects were appreciated. A large Bard 3D Duramax mesh was selected and inserted into the preperitoneal space and unrolled until it was in perfect position and noted to lay in a flat position without wrinkling.? The mesh covered all 3 potential hernia defects widely.? Hemostasis was excellent throughout.? I held the lower border of the mesh with the grasper as we released the carbon dioxide and the peritoneum was noted to relax in a very pleasing manner against the mesh holding it in place.? No tacking or fixation was required. The trocars were removed and there was no bleeding noted at the trocar sites.? The 0 Vicryl [id number] suture was tied on the umbilical fascia with no palpable fascial defects.? The skin incisions were closed using 4-0 Monocryl in a subcuticular manner.? Dermabond glue was applied as a final dressing.? The instrument, sponge and needle counts were all correct x2.? The patient tolerated the procedure well and was extubated in the operating room and transported to the recovery area in stable condition. Complications: none Post-operative Condition: stable Disposition: PACU Plan for aftercare: PACU then home
[2025-04-01 12:00] VITALS: BP 138/74; PULSE 93; RESP 16; TEMP 36.3; O2SAT 95
[2025-04-01 12:05] VITALS: BP 123/79; PULSE 90; RESP 14; TEMP 36.3; O2SAT 96
[2025-04-01 12:16] VITALS: BP 102/52; PULSE 82; RESP 16; TEMP 36.4; O2SAT 97
[2025-04-01 12:22] VITALS: BP 116/57; PULSE 75; RESP 12; TEMP 36.3; O2SAT 96
[2025-04-01] MEDS: ONDANSETRON 4 MG/2 ML INJ IV (12:30)
--- NOTE | 2025-04-01 13:02 | SUR.PHASEII ---
Patient asking for PO dilaudid prior to discharge. Informed patient that she would receive an oxycodone but no PO dilaudid would be given; informed patient that she had a prescription for PO dilaudid and could pick that up on the way home.
== END 2025-04-01 13:07 | disposition home or self-care (01) ==
PROVIDERS: Family Provider Nurse Practitioner; PCP Family Medicine; Referring Provider Surgery; Visit Provider Surgery
PROC: 0YQ54ZZ Repair Right Inguinal Region, Percutaneous Endoscopic Approach (ICD-10-PCS; CPT 49651; principal; 2025-04-01 11:15)
DX: K40.91 Unilateral inguinal hernia, without obstruction or gangrene, recurrent (principal); K41.91 Unilateral femoral hernia, without obstruction or gangrene, recurrent
CPT/HCPCS: 49651; C1781; J0689; J1100; J2250; J2405; J2704; J3010; J3490; J7120